=== PATIENT | female | born 1955 | race Caucasian/White ===

== ENCOUNTER 2016-11-02 14:54 | Inpatient (IN) | payer MEDICARE ==
[~2016-11-02] VITALS: Ht 154.9 cm; Wt 83.9 kg
[~2016-11-02 14:54] MED LIST: ACULAR 3 ML3 M1 OP; ALBUTEROL0.09 MG/A2 IH; ALBUTEROL2.5 MG/0.5 INH; AMBIEN10 M1 PO; ANAPROX DS550 MG PO; ASPIRIN325 M2 PO; ASPIRIN81 M1 PO; CHERATUSSIN AC120 ML PO; CIPRO500 MG PO; CLARITIN10 MG PO; CYCLOBENZAPRINE10 MG PO; DUONEB 3 MG/3 ML3 M1 INH; DYAZIDE 25 MG-31 CAP PO; Ecotrin325 MG PO; FLEXERIL10 MG PO; FLEXERIL5 MG PO; HYCODAN/HYDROMET5 ML PO; HYDR25T PO; HYDROCODONE BIT1 T11 PO; KEFLEX500 MG PO; LASIX20 MG PO; LEVAQUIN 500 M500 M1 IV; LEVOFLOXACIN500 MG PO; LIPITOR40 MG PO; LISINOPRIL HCTZ1 TA1 PO; LISINOPRIL/HCTZ1 TA2 PO; LISINOPRIL20 MG PO; LOVASTATIN20 MG PO; MEDROL DOSEPAK4 MG PO; METOPROLOL SR100 MG PO; MOTRIN 400 MG E4 TAB PO; MOTRIN800 MG PO; NORVASC5 MG PO; OYSTER SHELL CA1 TAB PO; PHENERGAN25 M1 PO; PLAVIX75 MG PO; PREDNICOT10 MG PO; PREDNISONE10 MG PO; PREDNISONE20 M1 PO; PREDNISONE20 MG PO; PREVACID30 M1 PO; PRINZIDE 25 MG-1 TAB PO; PROAIR HFA0.09 MG/AC PO; PROAIR HFA8.5 GM PO; QVAR 80MCG/INH7.3 G1 PO; ROBITUSSIN AC 110 ML PO; SINGULAIR10 MG PO; SOLU-MEDROL125 MG IV; SYMBICORT1 AE1 IH; TESSALON PERLE100 M1 PO; TRAMADOL HCL50 MG PO; Tobrex Ophth S2.5 ML OPH; ULTRAM50 MG PO; VIBRAMYCIN100 MG PO; VICODIN 5/500 505 MG PO; VICODIN ES 7501 TA1 PO; VITAMIN D32000 IU PO; VITAMIN D50000 I2 PO; ZESTRIL20 MG PO; ZITHROMAX Z PA250 MG PO; ZITHROMAX250 MG PO; ZOLOFT100 MG PO; ZOLOFT50 MG PO; [UNRECOGNIZED DRUG - OTHER] INH; [UNRECOGNIZED DRUG - REMARK]
[2016-11-02 14:58] VITALS: BP 100/85
[2016-11-02 15:36] LABS: BASO # 0.1 10*3/uL (0.0-0.1); BASO % 1.4 % (0.0-1.0); EOS # 0.7 10*3/uL (0.0-0.4); EOS % 7.2 % (1.0-4.0); HEMATOCRIT 47.3 % (37.0-47.0); HEMOGLOBIN 15.8 g/dl (12.0-16.0); LYMPH # 3.7 10*3/uL (1.3-4.4); LYMPH % 37.4 % (27.0-41.0); MEAN CELL VOLUME 91.5 fl (81.0-99.0); MEAN CORPUSCULAR HGB 30.6 pg (27.0-31.0); MEAN CORPUSCULAR HGB CONC 33.4 g/dl (33.0-37.0); MEAN PLATELET VOLUME 9.4 fl (9.6-12.3); MONO # 0.8 10*3/uL (0.1-1.0); MONO % 7.7 % (3.0-9.0); NEUT # 4.6 10*3/uL (2.3-7.9); NEUT % 45.9 % (47.0-73.0); PLATELET COUNT AUTOMATED 365 10*3/uL (130-400); RED BLOOD COUNT 5.17 10*6/uL (4.10-5.10); RED CELL DISTRI WIDTH 13.3 % (0-14.5); WHITE BLOOD COUNT 9.9 10*3/uL (4.8-10.8)
[2016-11-02 15:53] LABS: ALBUMIN 3.9 gm/dl (3.1-4.5); ALKALINE PHOSPHATASE 179 U/L (45-117); BILIRUBIN, TOTAL 0.8 mg/dl (0.2-1.0); BUN 29 mg/dl (7-24); CARBON DIOXIDE 27 mmol/L (21-32); CHLORIDE 106 mmol/L (98-107); EST GLOM FILT AFRICAN AMERICAN > 60 ml/min; GLUCOSE 97 mg/dL (65-99); POTASSIUM 4.2 mmol/L (3.5-5.1); SGOT/AST 35 IU/L (3-35); SGPT/ALT 69 U/L (12-78); SODIUM 143 mmol/L (136-145); TOTAL PROTEIN 7.8 gm/dL (6.4-8.2); TROPONIN I 0.017 ng/ml (<0.5)
[2016-11-02 16:09] VITALS: BP 138/70
[2016-11-02 18:35] VITALS: BP 115/84
[2016-11-02] MEDS ORDERED: CLARITIN10 MG PO (19:06)
[2016-11-02 20:00] VITALS: BP 143/49
[2016-11-03] VITALS: BP 99/61
[2016-11-03 06:23] LABS: BASO % 0.2 % (0.0-1.0); EOS % 0.1 % (1.0-4.0); HEMATOCRIT 42.8 % (37.0-47.0); HEMOGLOBIN 14.3 g/dl (12.0-16.0); IG # 0.1 10*3/uL (0.0-0.1); LYMPH # 1.3 10*3/uL (1.3-4.4); MEAN CELL VOLUME 91.8 fl (81.0-99.0); MEAN CORPUSCULAR HGB 30.7 pg (27.0-31.0); MEAN CORPUSCULAR HGB CONC 33.4 g/dl (33.0-37.0); MEAN PLATELET VOLUME 9.9 fl (9.6-12.3); MONO # 0.1 10*3/uL (0.1-1.0); MONO % 0.7 % (3.0-9.0); NEUT # 11.7 10*3/uL (2.3-7.9); NEUT % 88.3 % (47.0-73.0); PLATELET COUNT AUTOMATED 355 10*3/uL (130-400); RED BLOOD COUNT 4.66 10*6/uL (4.10-5.10); RED CELL DISTRI WIDTH 13.2 % (0-14.5); WHITE BLOOD COUNT 13.3 10*3/uL (4.8-10.8)
[2016-11-03 06:42] LABS: HEMOGLOBIN A1c 5.4 % (4.8-5.6)
[2016-11-03 06:51] LABS: PROTHROMBIN TIME 10.7 SECONDS (9.0-12.4)
[2016-11-03 07:05] LABS: ALBUMIN 3.5 gm/dl (3.1-4.5); BILIRUBIN, TOTAL 0.4 mg/dl (0.2-1.0); MAGNESIUM 2.1 mg/dL (1.5-2.1); POTASSIUM 3.8 mmol/L (3.5-5.1); TOTAL PROTEIN 7.2 gm/dL (6.4-8.2)
[2016-11-03 08:00] VITALS: BP 118/70
[2016-11-03 11:45] LABS: BILIRUBIN NEGATIVE (NEGATIVE); BLOOD NEGATIVE (NEGATIVE); CLARITY CLEAR (CLEAR); COLOR YELLOW (YELLOW); GLUCOSE NEGATIVE (NEGATIVE); KETONE TRACE (NEGATIVE); LEUKO ESTERASE NEGATIVE (NEGATIVE); NITRITE NEGATIVE (NEGATIVE); PROTEIN NEGATIVE (NEGATIVE); SPECIFIC GRAVITY 1.025 (1.005-1.030); UROBILINOGEN 0.2 E.U./dl (0.2-1.0)
[2016-11-03 12:00] VITALS: BP 102/74
[2016-11-03 16:00] VITALS: BP 108/63
[2016-11-03 20:00] VITALS: BP 115/60
[2016-11-04] VITALS: BP 109/68
[2016-11-04 06:44] LABS: HEMATOCRIT 43.1 % (37.0-47.0); HEMOGLOBIN 13.9 g/dl (12.0-16.0); MEAN CELL VOLUME 93.9 fl (81.0-99.0); MEAN CORPUSCULAR HGB 30.3 pg (27.0-31.0); MEAN CORPUSCULAR HGB CONC 32.3 g/dl (33.0-37.0); MEAN PLATELET VOLUME 9.8 fl (9.6-12.3); PLATELET COUNT AUTOMATED 401 10*3/uL (130-400); RED BLOOD COUNT 4.59 10*6/uL (4.10-5.10); RED CELL DISTRI WIDTH 13.8 % (0-14.5); WHITE BLOOD COUNT 26.5 10*3/uL (4.8-10.8)
[2016-11-04 06:59] LABS: ALBUMIN 3.5 gm/dl (3.1-4.5); PHOSPHOROUS 3.6 mg/dL (2.5-4.9); POTASSIUM 4.3 mmol/L (3.5-5.1)
[2016-11-04 07:26] LABS: LYMPHOCYTE # 2.9 10*3/uL (1.3-4.4); NEUTROPHIL # 23.6 10*3/uL (2.3-7.9); NEUTROPHILS 89 % (47-73); PLATELET SUFFICIENCY NORMAL (NORMAL); TOTAL CELLS COUNTED 100 #CELLS
[2016-11-04 08:00] VITALS: BP 102/72
[2016-11-04 12:00] VITALS: BP 104/59
[2016-11-04 16:00] VITALS: BP 123/78
[2016-11-04 20:00] VITALS: BP 118/70
[2016-11-05] VITALS: BP 126/73
[2016-11-05 06:28] LABS: PHOSPHOROUS 2.6 mg/dL (2.5-4.9); POTASSIUM 4.5 mmol/L (3.5-5.1)
[2016-11-05 06:29] LABS: ALBUMIN 3.2 gm/dl (3.1-4.5)
[2016-11-05 08:00] VITALS: BP 154/88
[2016-11-05] MEDS ORDERED: PREDNISONE10 MG PO ×2 (11:01→11:04)
[2016-11-05] MEDS ORDERED: DOXYCYCLINE100 M3 PO ×2 (11:02→11:04)
== END 2016-11-05 12:03 | disposition home or self-care (01) | DRG 190 ==
LOC: ED 14:54 → 4E 16:15 → EDHOLD 16:15 → 4E 17:29
PROVIDERS: Family Medicine Adult Medicine; Internal Medicine; Internal Medicine Nephrology; Nurse Practitioner Family
DX: J44.1 Chronic obstructive pulmonary disease with (acute) exacerbation (principal); N17.0 Acute kidney failure with tubular necrosis; E44.0 Moderate protein-calorie malnutrition; E66.9 Obesity, unspecified; N18.2 Chronic kidney disease, stage 2 (mild); I12.9 Hypertensive chronic kidney disease with stage 1 through stage 4 chronic kidney disease, or unspecified chronic kidney disease; E78.5 Hyperlipidemia, unspecified; Z68.35 Body mass index [BMI] 35.0-35.9, adult; Z95.5 Presence of coronary angioplasty implant and graft; Z98.51 Tubal ligation status; Z98.49 Cataract extraction status, unspecified eye; Z98.890 Other specified postprocedural states; Z82.49 Family history of ischemic heart disease and other diseases of the circulatory system; Z88.0 Allergy status to penicillin; Z88.8 Allergy status to other drugs, medicaments and biological substances; Z79.82 Long term (current) use of aspirin; Z79.899 Other long term (current) drug therapy; Z95.0 Presence of cardiac pacemaker

== ENCOUNTER 2017-04-25 23:05 | Emergency (ER) | payer MEDICARE ==
[~2017-04-25] VITALS: Ht 157.4 cm; Wt 81.6 kg
[~2017-04-25 23:05] MED LIST changes: +DOXYCYCLINE100 M3 PO
[2017-04-25 23:11] VITALS: BP 168/84
[2017-04-25] MEDS ORDERED: ERYTHROMYCIN OPH1 GM OPH (23:47)
== END 2017-04-26 00:03 | disposition home or self-care (01) ==
LOC: ED 23:05
DX: H00.015 Hordeolum externum left lower eyelid (principal); Z95.5 Presence of coronary angioplasty implant and graft; Z95.0 Presence of cardiac pacemaker; Z88.0 Allergy status to penicillin; Z88.8 Allergy status to other drugs, medicaments and biological substances; Z79.82 Long term (current) use of aspirin; Z79.899 Other long term (current) drug therapy

== ENCOUNTER 2017-05-26 17:37 | Emergency (ER) | payer MEDICARE ==
[~2017-05-26] VITALS: Ht 154.9 cm; Wt 81.6 kg
[~2017-05-26 17:37] MED LIST changes: +ERYTHROMYCIN OPH1 GM OPH
[2017-05-26 17:57] VITALS: BP 174/104
[2017-05-26] MEDS ORDERED: BACTRIM 400-801 EACH PO (19:10)
== END 2017-05-26 19:17 | disposition home or self-care (01) ==
LOC: ED 17:37
DX: L02.31 Cutaneous abscess of buttock (principal); I10 Essential (primary) hypertension; Z95.0 Presence of cardiac pacemaker; Z95.5 Presence of coronary angioplasty implant and graft; Z79.82 Long term (current) use of aspirin; Z88.0 Allergy status to penicillin; Z88.8 Allergy status to other drugs, medicaments and biological substances

== ENCOUNTER 2017-06-15 22:35 | Inpatient (IN) | payer MEDICARE ==
[~2017-06-15] VITALS: Ht 154.9 cm; Wt 83.9 kg
--- NOTE | ~2017-06-15 | CON ---
[place], [place] REPORT OF CONSULTATION [id number] UNIT #: [id number] ROOM: 405 DOCTOR: JAEL MUNGUIA MD BIRTHDATE: [birth year] DOS: 06/16/2017 HISTORY OF PRESENT ILLNESS: The patient is a 62-year-old -[place]ian woman with a history of coronary artery disease. She had coronary artery stenting done in 2003. Around the same time, she had a dual chamber pacemaker implanted, the reason is not clear. She has essential hypertension and hyperlipidemia, but has never had a heart failure. She tells me that she had asthma as well. She has never had a stroke and the rhythm disorder off recent and morbid obesity. She has a tonsillectomy, adenoidectomy, cataract surgery and tubal ligation. She had a cough for about 3 days and had mild shortness of breath, so she came to the Emergency Department. She did not have any chest pain or palpitations. She tells me that she walked about a mile yesterday evening with a couple of friends on a regular basis without undue shortness of breath or any chest pain. She has not had any fever or chills and no swelling of the lower extremities. She has no orthopnea. Dr. Gomez was asked to see her because of slight increased troponin level. Her blood pressure was very high upon arrival and has remained so. HOME MEDICATIONS: Numerous and include metoprolol 100 b.i.d., amlodipine 5 mg daily. She is on lisinopril, dose is not known. Aspirin 81 mg daily, atorvastatin 40 daily, clopidogrel 75 mg daily, vitamin D 50,000 units weekly, loratadine 10 mg daily, DuoNeb inhaler and ProAir HFA inhaler. PHYSICAL EXAMINATION: GENERAL: The patient is alert, oriented and very pleasant. She is morbidly obese. Complexion is fine. She is not in any distress. There is no anemia, thyromegaly or finger clubbing. VITAL SIGNS: CVS pulse is regular at 80 beats per minute, blood pressure in the ER was 190/110 and earlier blood pressure was 210/100. NECK: Normal JVP. No bruit in the neck. HEART: There is no cardiomegaly. No murmurs are present. EXTREMITIES: She has good pedal pulses and no pitting edema. Mild varicosities were seen in the left leg. LUNGS: Of note, she was not tachypneic. Clear to auscultation and percussion. No chest wall tenderness present. ABDOMEN: Large, supple, nontender. No organomegaly. No bruits or pulsatile mass. LABORATORY DATA: An ECG demonstrated normal sinus rhythm at 90 beats per minute and an old inferior wall RI. There is minimal criteria for LVH and there is no significant ST-segment depression in lateral leads. Troponin I level was 0.080 and 0.076. IMPRESSION AND PLAN: 1. This patient with known coronary artery disease, has troponin I level that reaches above upper normal range and I think this is most likely due to uncontrolled hypertension. She has no symptoms at all, so I do not think any [place], [place] REPORT OF CONSULTATION NAME: MIKEY AKERS UNIT #: [id number] ROOM: 405 DOCTOR: JAEL MUNGUIA MD BIRTHDATE: [birth year] further cardiac workup is necessary. 2. Hypertension. This needs to be controlled diligently. She did not take her medications last night before she came to the hospital and lisinopril is being added at a dose of 20 mg b.i.d. I thank you on behalf of Dr. Gomez for this consult. JAEL MUNGUIA MD CM:CONSTR:REPORT OF CONSULTATION 0925 06/18/17 3089 interface
[~2017-06-15 22:35] MED LIST changes: +BACTRIM 400-801 EACH PO
[2017-06-15 22:44] VITALS: BP 189/110
[2017-06-15 23:14] LABS: BASO # 0.1 10*3/uL (0.0-0.1); EOS # 0.4 10*3/uL (0.0-0.4); EOS % 3.9 % (1.0-4.0); HEMATOCRIT 42.4 % (37.0-47.0); HEMOGLOBIN 14.4 g/dl (12.0-16.0); LYMPH # 4.1 10*3/uL (1.3-4.4); LYMPH % 40.1 % (27.0-41.0); MEAN CELL VOLUME 89.6 fl (81.0-99.0); MEAN CORPUSCULAR HGB 30.4 pg (27.0-31.0); MEAN PLATELET VOLUME 9.5 fl (9.6-12.3); MONO # 0.8 10*3/uL (0.1-1.0); NEUT # 4.8 10*3/uL (2.3-7.9); NEUT % 46.7 % (47.0-73.0); PLATELET COUNT AUTOMATED 280 10*3/uL (130-400); RED BLOOD COUNT 4.73 10*6/uL (4.10-5.10); RED CELL DISTRI WIDTH 13.2 % (0-14.5); WHITE BLOOD COUNT 10.3 10*3/uL (4.8-10.8)
[2017-06-15 23:30] LABS: ALBUMIN 3.5 gm/dl (3.1-4.5); CREATININE 1.15 mg/dL (0.55-1.02); MAGNESIUM 2.1 mg/dL (1.5-2.1); POTASSIUM 3.4 mmol/L (3.5-5.1); TOTAL PROTEIN 7.1 gm/dL (6.4-8.2)
[2017-06-15 23:36] LABS: TROPONIN I 0.08 ng/ml (<0.045)
[2017-06-15 23:48] VITALS: BP 164/98
--- NOTE | 2017-06-16 02:38 | NUR ---
DR. MCNEILL NOTIFIED THAT CARDINAL RECOMENDS LEVAQUIN TO BE GIVEN Q48H INSTEAD OF DAILY DR. MCNEILL STATED THIS WAS OK TO CHANGE.
--- NOTE | 2017-06-16 02:46 | NUR ---
DR. MCNEILL CONTACTED REGARDING PT'S NEW TROPONIN RESULT OF 0.076, NO NEW ORDERS RECIEVED.
[2017-06-16 05:52] LABS: BASO % 0.4 % (0.0-1.0); EOS % 0.1 % (1.0-4.0); HEMATOCRIT 41.8 % (37.0-47.0); HEMOGLOBIN 13.9 g/dl (12.0-16.0); LYMPH # 1.1 10*3/uL (1.3-4.4); LYMPH % 14.3 % (27.0-41.0); MEAN CELL VOLUME 91.5 fl (81.0-99.0); MEAN CORPUSCULAR HGB 30.4 pg (27.0-31.0); MEAN CORPUSCULAR HGB CONC 33.3 g/dl (33.0-37.0); MEAN PLATELET VOLUME 9.5 fl (9.6-12.3); MONO % 0.5 % (3.0-9.0); NEUT # 6.3 10*3/uL (2.3-7.9); NEUT % 83.6 % (47.0-73.0); PLATELET COUNT AUTOMATED 280 10*3/uL (130-400); RED BLOOD COUNT 4.57 10*6/uL (4.10-5.10); RED CELL DISTRI WIDTH 13.3 % (0-14.5); WHITE BLOOD COUNT 7.5 10*3/uL (4.8-10.8)
[2017-06-16 05:58] LABS: ALBUMIN 3.3 gm/dl (3.1-4.5); ALKALINE PHOSPHATASE 133 U/L (45-117); BUN 17 mg/dl (7-24); CHLORIDE 109 mmol/L (98-107); CHOLESTEROL 164 mg/dL (<200); CREATININE 1.02 mg/dL (0.55-1.02); HDL CHOLESTEROL 51 mg/dl (40-60); LDL CHOLESTEROL 101 mg/dL (9-159); MAGNESIUM 1.9 mg/dL (1.5-2.1); PHOSPHOROUS 2.4 mg/dL (2.5-4.9); POTASSIUM 3.6 mmol/L (3.5-5.1); SGOT/AST 25 IU/L (3-35); SGPT/ALT 42 U/L (12-78); SODIUM 142 mmol/L (136-145); TOTAL PROTEIN 6.9 gm/dL (6.4-8.2); TRIGLYCERIDES 60 mg/dl (<150); VLDL CHOLESTEROL 12 mg/dL (6-40)
[2017-06-16 05:59] LABS: FREE T4 1.09 ng/dl (0.76-1.46)
[2017-06-16 06:00] LABS: TROPONIN I 0.073 ng/ml (<0.045)
[2017-06-16 06:12] LABS: THYROID STIM HORMONE (HS) 0.486 uIU/ml (0.358-4.75)
--- NOTE | 2017-06-16 06:13 | NUR ---
DR. MUNGUIA CONSULTED THIS MORNING, STATED HE WOULD BE IN TO SEE PT.
[2017-06-16 06:24] LABS: ACT PARTIAL THROMBO TIME 23.4 SECONDS (20.8-31.5)
[2017-06-16 06:41] LABS: VITAMIN D, 25-HYDROXY 42.6 ng/mL (30-100)
--- NOTE | 2017-06-16 07:30 | NUR ---
ASSUMED CARE OF PT AT THIS TIME, PT SITTING ON BEDSIDE, ALERT AND ORIENTED
[2017-06-16 08:00] VITALS: BP 210/98
[2017-06-16 09:00] VITALS: BP 198/96
[2017-06-16] MEDS ORDERED: LISINOPRIL20 MG PO (09:58)
[2017-06-16 10:32] LABS: BILIRUBIN NEGATIVE (NEGATIVE); BLOOD NEGATIVE (NEGATIVE); CLARITY SL CLOUDY (CLEAR); COLOR YELLOW (YELLOW); GLUCOSE TRACE (NEGATIVE); KETONE NEGATIVE (NEGATIVE); LEUKO ESTERASE NEGATIVE (NEGATIVE); NITRITE NEGATIVE (NEGATIVE); PH 6.5 (5.0-9.0); SPECIFIC GRAVITY 1.015 (1.005-1.030)
[2017-06-16 10:43] LABS: BACTERIA TRACE
[2017-06-16 12:00] VITALS: BP 163/96
[2017-06-16 16:00] VITALS: BP 159/106
[2017-06-16 20:00] VITALS: BP 176/100
[2017-06-17] VITALS: BP 171/95
--- NOTE | 2017-06-17 04:21 | NUR ---
PATIENT RESTED WELL THROUGHOUT SHIFT. FAMILY VISITED ALL AFTERNOON UNTIL AROUND MIDNIGHT. NO SIGNS OR SYMPTOMS OF DISTRESS NOTED. DENIES COMPLAINTS OF PAIN OR DISCOMFORT. WILL CONTINUE TO MONITOR. CALL LIGHT IN REACH.
[2017-06-17 05:59] LABS: BASO % 0.2 % (0.0-1.0); HEMATOCRIT 41.4 % (37.0-47.0); LYMPH # 2.5 10*3/uL (1.3-4.4); LYMPH % 15.2 % (27.0-41.0); MEAN CORPUSCULAR HGB 30.8 pg (27.0-31.0); MEAN CORPUSCULAR HGB CONC 33.8 g/dl (33.0-37.0); MEAN PLATELET VOLUME 9.7 fl (9.6-12.3); MONO # 0.5 10*3/uL (0.1-1.0); MONO % 2.8 % (3.0-9.0); NEUT # 13.6 10*3/uL (2.3-7.9); NEUT % 81.3 % (47.0-73.0); PLATELET COUNT AUTOMATED 306 10*3/uL (130-400); RED BLOOD COUNT 4.55 10*6/uL (4.10-5.10); RED CELL DISTRI WIDTH 13.6 % (0-14.5); WHITE BLOOD COUNT 16.7 10*3/uL (4.8-10.8)
[2017-06-17 06:20] LABS: BUN 17 mg/dl (7-24); CHLORIDE 111 mmol/L (98-107); CREATININE 0.99 mg/dL (0.55-1.02); MAGNESIUM 2.2 mg/dL (1.5-2.1); POTASSIUM 3.8 mmol/L (3.5-5.1); SODIUM 142 mmol/L (136-145)
[2017-06-17 08:00] VITALS: BP 140/95
[2017-06-17 12:00] VITALS: BP 150/93
[2017-06-17 16:00] VITALS: BP 149/94
[2017-06-17 20:00] VITALS: BP 136/96
--- NOTE | 2017-06-17 20:00 | NUR ---
ASSUMED CARE OF PATIENT. ASSESSMENT COMPLETE. SITTING UP ON SIDE OF BED. NO VOICED COMPLAINTS. CALL LIGHT IN REACH. WILL CONTINUE TO MONITOR.
--- NOTE | 2017-06-17 22:00 | NUR ---
DAILY MED REC UP COMPLETED PER PATIENT
[2017-06-18] VITALS: BP 147/87
--- NOTE | 2017-06-18 02:00 | NUR ---
SLEEPING. RESP EASY AND NONLABORED ON ROOM AIR. NO DISTRESS NOTED. CM INTACT. CALL LIGHT IN REACH. WILL CONTINUE TO MONITOR.
[2017-06-18 06:15] LABS: BASO % 0.2 % (0.0-1.0); HEMATOCRIT 42.6 % (37.0-47.0); HEMOGLOBIN 14.1 g/dl (12.0-16.0); LYMPH # 1.9 10*3/uL (1.3-4.4); LYMPH % 10.6 % (27.0-41.0); MEAN CELL VOLUME 91.8 fl (81.0-99.0); MEAN CORPUSCULAR HGB 30.4 pg (27.0-31.0); MEAN CORPUSCULAR HGB CONC 33.1 g/dl (33.0-37.0); MEAN PLATELET VOLUME 9.9 fl (9.6-12.3); MONO # 0.5 10*3/uL (0.1-1.0); MONO % 2.7 % (3.0-9.0); NEUT # 15.5 10*3/uL (2.3-7.9); NEUT % 85.2 % (47.0-73.0); PLATELET COUNT AUTOMATED 338 10*3/uL (130-400); RED BLOOD COUNT 4.64 10*6/uL (4.10-5.10); RED CELL DISTRI WIDTH 13.8 % (0-14.5); WHITE BLOOD COUNT 18.2 10*3/uL (4.8-10.8)
[2017-06-18 08:00] VITALS: BP 151/87
[2017-06-18 12:00] VITALS: BP 154/94
--- NOTE | 2017-06-18 12:44 | NUR ---
PT LEFT AGAINST MEDICAL ADVICE. IV DISCONTINUED. MASTER AUTOMOTIVE TECHNICIAN OFF.
== END 2017-06-18 12:44 | disposition left against medical advice (07) | DRG 871 ==
LOC: ED 22:35 → EDHOLD 23:52 → 4E 23:59
PROVIDERS: Hospitalist; Internal Medicine; Student in an Organized Health Care Education/Training Program; ADMIT Emergency Medicine
DX: A41.9 Sepsis, unspecified organism (principal); J18.9 Pneumonia, unspecified organism; E44.0 Moderate protein-calorie malnutrition; E87.8 Other disorders of electrolyte and fluid balance, not elsewhere classified; J44.0 Chronic obstructive pulmonary disease with (acute) lower respiratory infection; K76.0 Fatty (change of) liver, not elsewhere classified; I16.1 Hypertensive emergency; E83.41 Hypermagnesemia; R65.20 Severe sepsis without septic shock; Z77.22 Contact with and (suspected) exposure to environmental tobacco smoke (acute) (chronic); E78.5 Hyperlipidemia, unspecified; I25.119 Atherosclerotic heart disease of native coronary artery with unspecified angina pectoris; I12.9 Hypertensive chronic kidney disease with stage 1 through stage 4 chronic kidney disease, or unspecified chronic kidney disease; N18.2 Chronic kidney disease, stage 2 (mild); E66.9 Obesity, unspecified; E83.39 Other disorders of phosphorus metabolism; I77.810 Thoracic aortic ectasia; K80.20 Calculus of gallbladder without cholecystitis without obstruction; Z53.21 Procedure and treatment not carried out due to patient leaving prior to being seen by health care provider; Z95.818 Presence of other cardiac implants and grafts; Z68.34 Body mass index [BMI] 34.0-34.9, adult; Z88.0 Allergy status to penicillin; Z88.6 Allergy status to analgesic agent; I25.2 Old myocardial infarction; Z98.49 Cataract extraction status, unspecified eye; Z95.0 Presence of cardiac pacemaker; Z98.51 Tubal ligation status; Z82.49 Family history of ischemic heart disease and other diseases of the circulatory system; Z83.3 Family history of diabetes mellitus; Z79.82 Long term (current) use of aspirin; Z79.899 Other long term (current) drug therapy

== ENCOUNTER → 2017-06-27 | Outpatient (CLI) | payer MEDICARE ==
[2017-06-27 11:01] LABS: BASO # 0.1 10*3/uL (0.0-0.1); BASO % 0.8 % (0.0-1.0); EOS # 0.3 10*3/uL (0.0-0.4); EOS % 2.5 % (1.0-4.0); HEMATOCRIT 46.6 % (37.0-47.0); HEMOGLOBIN 15.3 g/dl (12.0-16.0); LYMPH # 4.4 10*3/uL (1.3-4.4); LYMPH % 36.7 % (27.0-41.0); MEAN CELL VOLUME 91.4 fl (81.0-99.0); MEAN CORPUSCULAR HGB CONC 32.8 g/dl (33.0-37.0); MEAN PLATELET VOLUME 9.2 fl (9.6-12.3); MONO # 1.1 10*3/uL (0.1-1.0); MONO % 9.1 % (3.0-9.0); NEUT # 5.9 10*3/uL (2.3-7.9); NEUT % 49.1 % (47.0-73.0); PLATELET COUNT AUTOMATED 297 10*3/uL (130-400); RED CELL DISTRI WIDTH 13.6 % (0-14.5); WHITE BLOOD COUNT 11.9 10*3/uL (4.8-10.8)
[2017-06-27 11:16] LABS: ALBUMIN 3.5 gm/dl (3.1-4.5); ALKALINE PHOSPHATASE 127 U/L (45-117); BUN 20 mg/dl (7-24); CHLORIDE 105 mmol/L (98-107); CHOLESTEROL 210 mg/dL (<200); CREATININE 0.97 mg/dL (0.55-1.02); HDL CHOLESTEROL 62 mg/dl (40-60); LDL CHOLESTEROL 112 mg/dL (9-159); POTASSIUM 3.8 mmol/L (3.5-5.1); SGOT/AST 15 IU/L (3-35); SGPT/ALT 34 U/L (12-78); SODIUM 142 mmol/L (136-145); TOTAL PROTEIN 7.2 gm/dL (6.4-8.2); TRIGLYCERIDES 181 mg/dl (<150); VLDL CHOLESTEROL 36 mg/dL (6-40)
[2017-06-27 11:47] LABS: VITAMIN D, 25-HYDROXY 30.5 ng/mL (30-100)
== END | disposition home or self-care (01) ==
LOC: LAB 08:16 → RESCLI 08:16
PROVIDERS: Internal Medicine
DX: I25.10 Atherosclerotic heart disease of native coronary artery without angina pectoris (principal); E78.5 Hyperlipidemia, unspecified; I10 Essential (primary) hypertension; F32.9 Major depressive disorder, single episode, unspecified; Z79.899 Other long term (current) drug therapy; E55.9 Vitamin D deficiency, unspecified

== ENCOUNTER → 2017-07-09 | Outpatient (CLI) | payer MEDICARE | END | disposition home or self-care (01) | LOC: RESCLI 07:50 | DX: I25.10 Atherosclerotic heart disease of native coronary artery without angina pectoris (principal); I10 Essential (primary) hypertension; J45.30 Mild persistent asthma, uncomplicated; E78.5 Hyperlipidemia, unspecified; M54.5 Low back pain; G89.29 Other chronic pain; G47.01 Insomnia due to medical condition; F32.9 Major depressive disorder, single episode, unspecified; J30.2 Other seasonal allergic rhinitis; I71.2 Thoracic aortic aneurysm, without rupture; E66.01 Morbid (severe) obesity due to excess calories; J44.9 Chronic obstructive pulmonary disease, unspecified ==

== ENCOUNTER → 2017-08-21 | Outpatient (CLI) | payer MEDICARE | END | disposition home or self-care (01) | LOC: RESCLI 01:31 | DX: I10 Essential (primary) hypertension (principal); A41.9 Sepsis, unspecified organism; J18.9 Pneumonia, unspecified organism; E78.5 Hyperlipidemia, unspecified; M54.5 Low back pain; F32.9 Major depressive disorder, single episode, unspecified; K57.30 Diverticulosis of large intestine without perforation or abscess without bleeding; J45.20 Mild intermittent asthma, uncomplicated; J06.9 Acute upper respiratory infection, unspecified; B97.89 Other viral agents as the cause of diseases classified elsewhere; Z95.0 Presence of cardiac pacemaker; Z88.0 Allergy status to penicillin ==

== ENCOUNTER 2017-09-08 14:06 | Emergency (ER) | payer MEDICARE ==
[~2017-09-08] VITALS: Ht 154.9 cm; Wt 89.4 kg
[2017-09-08 14:10] VITALS: BP 170/90
[2017-09-08] MEDS ORDERED: PREDNISONE10 MG PO (15:35)
[2017-09-08] MEDS ORDERED: DOXYCYCLINE100 M3 PO (15:35)
== END 2017-09-08 15:46 | disposition home or self-care (01) ==
LOC: ED 14:06
DX: J40 Bronchitis, not specified as acute or chronic (principal); J01.00 Acute maxillary sinusitis, unspecified; E78.00 Pure hypercholesterolemia, unspecified; I25.10 Atherosclerotic heart disease of native coronary artery without angina pectoris; J44.9 Chronic obstructive pulmonary disease, unspecified; I10 Essential (primary) hypertension; I25.2 Old myocardial infarction; E66.9 Obesity, unspecified; F17.200 Nicotine dependence, unspecified, uncomplicated; Z68.39 Body mass index [BMI] 39.0-39.9, adult; Z95.5 Presence of coronary angioplasty implant and graft; Z90.89 Acquired absence of other organs; Z95.0 Presence of cardiac pacemaker; Z79.82 Long term (current) use of aspirin; Z79.899 Other long term (current) drug therapy; Z88.0 Allergy status to penicillin; Z88.8 Allergy status to other drugs, medicaments and biological substances

== ENCOUNTER → 2017-09-10 | Outpatient (CLI) | payer MEDICARE | END | disposition home or self-care (01) | LOC: CP 09:47 | DX: J45.909 Unspecified asthma, uncomplicated (principal) ==

== ENCOUNTER 2017-09-18 03:55 | Inpatient (IN) | payer MEDICARE ==
[~2017-09-18] VITALS: Ht 154.9 cm; Wt 87.6 kg
--- NOTE | ~2017-09-18 | CON ---
[place], [place] REPORT OF CONSULTATION NAME: MIKEY AKERS [facility] #: [id number] UNIT #: [id number] ROOM: 412 DOCTOR: MOISES SIMMONS MDDALTON BIRTHDATE: [birth year] DOS: 09/19/2017 PULMONARY CONSULTATION EVALUATION REASON FOR CONSULTATION: Assess the patient with exacerbation of chronic obstructive pulmonary disease. HISTORY OF PRESENT ILLNESS: A 62-year-old white female patient who has been admitted under the hospitalist service for the patient on 09/18/2017. The patient reported having increased respiratory symptom which has been ongoing since close to . The patient started with cough with chest congestion with wheezing and shortness of breath, which has been noted with gradual worsening. She came into the hospital Emergency Room and hospitalized for the medical management of diagnosis as COPD exacerbation. The patient stated that she has reported reduction in respiratory symptoms in last 24 hours with improvement in the cough, wheezing and shortness of breath has been reported significantly. Coughing has been improved, noted minimal. The wheezing has also been decreased significantly. She denies any symptoms of chest pain or hemoptysis. REVIEW OF SYSTEMS: CONSTITUTIONAL: Fatigue and tiredness reported without any symptoms of fever or chills. EYES: Denies any burning, redness, or tenderness. EARS, NOSE, THROAT SYMPTOMS: Denies sore throat, hoarseness, otalgia, postnasal drainage or epistaxis. CARDIOVASCULAR: Denies angina pain, edema or pain of the lower extremities. GASTROINTESTINAL: Denies symptoms of dysphagia, nausea, vomiting, diarrhea, abdominal pain, hematemesis, melena for this patient, hematochezia, or abnormal weight loss history. GENITOURINARY: Denies dysuria, suprapubic pain, or hematuria. SKIN: Denies lesions or rashes. MUSCULOSKELETAL: No acute joint pain, redness, or tenderness. CENTRAL NERVOUS SYSTEM: No dizziness, headache, diplopia, or syncopal episodes. Remaining systems were reviewed with the patient, they were noted all negative. PAST MEDICAL HISTORY: 1. She was noted with "diagnosis of COPD" as per patient. 2. History of coronary artery disease. 3. History of tenosynovitis. 4. Hyperlipidemia. 5. Essential hypertension. 6. Chronic moderate obesity. PAST SURGICAL HISTORY: 1. Reported as history of cardiac catheterization and coronary stent insertion in 2003. 2. T and A. 3. Bilateral cataract extraction and lens implantation. [place], [place] REPORT OF CONSULTATION NAME: MIKEY AKERS [facility] #: [id number] UNIT #: [id number] ROOM: [facility] DOCTOR: DALTON CORONA MD BIRTHDATE: [birth year] 4. Pacemaker insertion. 5. Tubal ligation. In the past, she also had history of bronchial asthma, severity unknown. SOCIAL HISTORY: She stated that she is , has 2 children, nonsmoker lifetime. Denies history of alcohol use, illicit drug use or any occupation related exposure for any dust or chemicals at work or home. FAMILY HISTORY: The patient's father at age of 7070 years old from unknown medical complications. Mother at the age per the patient about 50 years old with complication related to the congestive heart failure. HOME MEDICATIONS: Reported use of ProAir HFA inhaler, Norvasc, aspirin, Lipitor, calcium carbonate, Plavix, Flexeril, ibuprofen, DuoNeb, Prevacid, lisinopril, losartan, metoprolol, and Ambien. DRUG ALLERGIES: REPORTED ALLERGY. 1. NITROGLYCERIN. 2. PENICILLINS. PHYSICAL EXAMINATION: GENERAL: This is a 62-year-old white female noted comfortable sitting on the bed for this patient without any acute respiratory distress at this time. VITAL SIGNS: The height for the patient recorded as 5 feet 1 inch, weight of 193 pounds, BMI 36.4. Vital signs are normal temperature, respiratory rate for the patient was recorded between 18-20, heart rate of 74-104, blood pressure 132/80 this morning. Pulse oxygen saturation of the patient on room air was 98% saturation. HEENT: Mild obesity. Head is atraumatic. Eye nonicterus. NECK: Supple. Moderate reduction of the posterior pharyngeal space, the patient with high tongue base. The patient crowding soft tissue structures. CARDIOVASCULAR: S1, S2 audible. No added sounds. LUNGS: Noted with mild decreased breath sounds without any wheezing or crackles. ABDOMEN: Soft. Mild obesity. Bowel sounds present without any tenderness. CENTRAL NERVOUS SYSTEM: Cranial nerves 2-12 intact. No focal deficit. MUSCULOSKELETAL: No deformities. SKIN: No lesions or rashes. LABORATORY DATA: The patient has a pulmonary function test done as an outpatient on 09/10/2017 for the patient shows evidence of mild reversible obstructive lung disease. The patient was considered possibility of bronchial asthma. The lactic acid of the patient on 09/18 was normal. The CMP of the patient on 09/18 on admission, normal. The CBC: WBC count 14.5, remaining CBC was noted normal on admission on 09/18. Eosinophils, however, reported differential as 5%. The CBC this morning: WBC count 11.4, remaining CBC normal. PT/PTT normal this morning. CMP this morning, BUN 24, creatinine 1.13, glucose 187. The chest x-ray, 2-view, which was done for the patient 09/18/2017, the patient was noted normal study. [place], [place] REPORT OF CONSULTATION NAME: MIKEY AKERS UNIT #: [id number] ROOM: [facility] DOCTOR: DALTON CORONA MD BIRTHDATE: [birth year] IMPRESSION: 1. The patient will be currently admitted to the hospital, most likely has a diagnosis based on the history of the patient's pulmonary function testing as bronchial asthma with acute exacerbation and bronchitis. Possibility of viral bronchitis of the patient to be considered versus bacteria for this patient. 2. History of moderate obesity as well. 3. History of coronary artery disease. 4. Steroid-induced hyperglycemia was also noted. PLAN OF MANAGEMENT: From the pulmonary standpoint, the patient could be discharged home on tapering dose of prednisone, oral antibiotic such as Zithromax or doxycycline for the next few days, and use of the bronchodilators. Outpatient assessment. The patient agreed to be assessed with the patient as an outpatient for further assessment of her pulmonary status and maximize the medical management accordingly. All other supportive therapy, plan of management. The information has been conveyed to the nurses to be passed on to the primary care physician. DALTON DE LEON MD CM:CONSTR:REPORT OF CONSULTATION 1221 09/19/17 1437 interface
--- NOTE | ~2017-09-18 | PR ---
[place], [place] PROGRESS NOTE [id number] UNIT #: [id number] ROOM: 412 DOCTOR: MOISES SIMMONS MD,DALTON BIRTHDATE: [birth year] DOS: 09/20/2017 PULMONARY FOLLOWUP SUBJECTIVE: The patient has been noted comfortable at this time without any distress, has not been reported any symptoms of chest pain. The patient's coughing and shortness of breath all improved, currently noted with minimal symptoms. OBJECTIVE: VITAL SIGNS: Normal temperature, respiratory rate 20, heart rate 79, blood pressure 108/78. Pulse oxygen saturation on room air 96% saturation. HEENT: Shows no acute change. NECK: Supple. CARDIOVASCULAR: S1, S2 audible. LUNGS: No wheeze or crackles. ABDOMEN: Soft, nontender. EXTREMITIES: Without any edema. LABORATORY DATA: Chest x-ray of the patient yesterday repeated and noted normal, PA lateral view in the afternoon, which was reviewed. IMPRESSION: Stable respiratory status, resolving acute exacerbation of bronchial asthma. PLAN OF MANAGEMENT: No changes from the pulmonary standpoint. Continue the patient's current therapy, plan of management. Discharge planning according to the primary care physician. All other supportive plan of management care. DALTON DE LEON MD CM:PNTRANS [id number] DALTON SIMMONS MD 09/20/17 1512 interface
[2017-09-18 15:32] VITALS: BP 138/84
--- NOTE | 2017-09-18 15:50 | NUR ---
A 62, admitted to , under the services of CHARLES Villareal DO with a diagnosis of COPD EXACERBATION. Chief complaint is SHORTNES OF BREATH. Patient arrived via wheel chair from OP/ADMIT. Monitor applied. Initial assessment completed. Vital signs taken and recorded. CHARLES VILLAREAL DO notified of admission to the unit. Orders received. See assessment for past medical history, medications and allergies. Patient and/or family oriented to unit. [facility] visitation policy reviewed. Clothing/patient valuable form completed. JAGRUTI ARNOLD R
[2017-09-18] MEDS ORDERED: AMBIEN5 MG PO (16:07)
[2017-09-18] MEDS ORDERED: IBU800 MG PO (16:09)
[2017-09-18] MEDS ORDERED: CYCLOBENZAPRINE10 MG PO (16:10)
[2017-09-18] MEDS ORDERED: PREVACID30 M2 PO (16:11)
--- NOTE | 2017-09-18 16:20 | NUR ---
DR. DE LEON NOTIFIED OF CONSULT, NO NEW ORDERS.
[2017-09-18 16:39] LABS: HEMATOCRIT 44.3 % (37.0-47.0); HEMOGLOBIN 14.5 g/dl (12.0-16.0); MEAN CELL VOLUME 93.9 fl (81.0-99.0); MEAN CORPUSCULAR HGB 30.7 pg (27.0-31.0); MEAN CORPUSCULAR HGB CONC 32.7 g/dl (33.0-37.0); MEAN PLATELET VOLUME 9.3 fl (9.6-12.3); PLATELET COUNT AUTOMATED 343 10*3/uL (130-400); RED BLOOD COUNT 4.72 10*6/uL (4.10-5.10); RED CELL DISTRI WIDTH 13.8 % (0-14.5); WHITE BLOOD COUNT 14.5 10*3/uL (4.8-10.8)
--- NOTE | 2017-09-18 16:39 | NUR ---
NEW IV STARTED IN PT. LEFT HAND, PT. TOLERATED WELL.
[2017-09-18 16:56] LABS: ALBUMIN 3.4 gm/dl (3.1-4.5); ALKALINE PHOSPHATASE 150 U/L (45-117); BUN 24 mg/dl (7-24); CHLORIDE 107 mmol/L (98-107); CREATININE 0.91 mg/dL (0.55-1.02); POTASSIUM 4.1 mmol/L (3.5-5.1); SGOT/AST 14 IU/L (3-35); SGPT/ALT 41 U/L (12-78); SODIUM 141 mmol/L (136-145); TOTAL PROTEIN 7.3 gm/dL (6.4-8.2)
[2017-09-18 16:57] LABS: TROPONIN I < 0.015 ng/ml (<0.045)
[2017-09-18 17:03] LABS: TOTAL CELLS COUNTED 100 #CELLS
[2017-09-18 17:04] LABS: PLATELET SUFFICIENCY NORMAL (NORMAL)
[2017-09-18 20:00] VITALS: BP 103/86
--- NOTE | 2017-09-18 20:17 | NUR ---
PATIENT RESTING IN BED PLAYING ON TABLET. DENIES SHORTNESS OF BREATH. COUGH OBSERVED. NO NEEDS AT THIS TIME. BED IN LOWEST POSITION, CALL LIGHT IN REACH
[2017-09-18 22:12] LABS: BILIRUBIN NEGATIVE (NEGATIVE); BLOOD NEGATIVE (NEGATIVE); CLARITY CLEAR (CLEAR); COLOR YELLOW (YELLOW); GLUCOSE NEGATIVE (NEGATIVE); KETONE NEGATIVE (NEGATIVE); LEUKO ESTERASE NEGATIVE (NEGATIVE); NITRITE NEGATIVE (NEGATIVE); SPECIFIC GRAVITY 1.025 (1.005-1.030); UROBILINOGEN 0.2 E.U./dl (0.2-1.0)
[2017-09-18 22:46] LABS: RBC 0-2 rbc/hpf (0-2); WBC 0-2 wbc/hpf (0-5)
--- NOTE | 2017-09-18 23:48 | NUR ---
24 HR chart check completed.
[2017-09-19] VITALS: BP 145/88
--- NOTE | 2017-09-19 03:15 | NUR ---
PATIENT RESTING IN BED WITH NO S/S OF DISTRESS. RESPS EASY AND REUGLAR. BED IN LOWEST POSITOIN, CALL LIGHT IN REACH
[2017-09-19 06:15] LABS: BASO % 0.4 % (0.0-1.0); EOS % 0.1 % (1.0-4.0); HEMATOCRIT 43.2 % (37.0-47.0); HEMOGLOBIN 14.4 g/dl (12.0-16.0); LYMPH # 1.1 10*3/uL (1.3-4.4); LYMPH % 9.6 % (27.0-41.0); MEAN CELL VOLUME 93.1 fl (81.0-99.0); MEAN CORPUSCULAR HGB CONC 33.3 g/dl (33.0-37.0); MEAN PLATELET VOLUME 9.6 fl (9.6-12.3); MONO # 0.1 10*3/uL (0.1-1.0); MONO % 0.7 % (3.0-9.0); NEUT # 9.9 10*3/uL (2.3-7.9); PLATELET COUNT AUTOMATED 307 10*3/uL (130-400); RED BLOOD COUNT 4.64 10*6/uL (4.10-5.10); RED CELL DISTRI WIDTH 13.5 % (0-14.5); WHITE BLOOD COUNT 11.4 10*3/uL (4.8-10.8)
[2017-09-19 06:37] LABS: ALBUMIN 3.3 gm/dl (3.1-4.5); POTASSIUM 4.1 mmol/L (3.5-5.1)
[2017-09-19 06:45] LABS: ACT PARTIAL THROMBO TIME 21.9 SECONDS (20.8-31.5); CREATININE 1.13 mg/dL (0.55-1.02); FREE T4 1.07 ng/dl (0.76-1.46); PHOSPHOROUS 2.9 mg/dL (2.5-4.9); THYROID STIM HORMONE (HS) 0.302 uIU/ml (0.358-4.75); TOTAL PROTEIN 6.9 gm/dL (6.4-8.2)
--- NOTE | 2017-09-19 07:30 | NUR ---
PT TAKEN OFF NOCTURNAL PULSE OX AT 730. PT WAS RESTING COMFORTABLY ON ROOM AIR. SP02 AT 97%. BOX TAKEN DOWNSTAIRS TO DOWNLOAD.
[2017-09-19 08:00] VITALS: BP 132/80
--- NOTE | 2017-09-19 08:20 | NUR ---
PT SITTING UP IN BED. RESP-EASY AND REGULAR. NO C/O AT THIS TIME. CALL LIGHT IN REACH. SEE SHIFT ASSESSMENT.
--- NOTE | 2017-09-19 08:30 | NUR ---
Knifer Up in to talk to patient. Patient states lives at HOME with HER BOYFRIEND AND SON. There are 15 steps in the home. Physician: [facility]acy: [facility] Home health services: NONE Patient's level of ADLs: MINIMAL ASSIST Patient has working utilities: YES DME: NONE Follow-up physician's appointment after d/c: WILL BE MADE PRIOR TO DC Does patient want to access PORTAL?: Discharge plan HOME. GILES RODRIGUEZ
[2017-09-19 08:42] LABS: VITAMIN D, 25-HYDROXY 30.1 ng/mL (30-100)
--- NOTE | 2017-09-19 10:00 | NUR ---
PT SITTING UP AT BEDSIDE. TOLERATED ROUTINE MED WITH NO PROBLEM. NO C/O AT THIS TIME. CALL LIGHT IN REACH.
[2017-09-19 12:00] VITALS: BP 146/88
--- NOTE | 2017-09-19 12:30 | NUR ---
SITTING UP AT SIDE OF BED. RESP-EASY AND REGULAR. NO C/O AT THIS TIME. CALL LIGHT IN REACH.
[2017-09-19 16:00] VITALS: BP 121/76
--- NOTE | 2017-09-19 16:00 | NUR ---
SITTING UP AT SIDE OF BED. RESP-EASY AND REGULAR. NO C/O AT THIS TIME. CALL LIGHT IN REACH.
--- NOTE | 2017-09-19 18:00 | NUR ---
SITTING UP IN BED. NO C/O AT THIS TIME. CALL LIGHT IN REACH.
--- NOTE | 2017-09-19 19:40 | NUR ---
PT. AWAKE, ALERT, AND ORIENTED X 3. PT. IN BED AT THIS TIME. PT. CURRENTLY DENIES SOB, CP AND PAIN. CALL LIGHT IN REACH, BED IN LOWEST POSITION, WHEELS LOCKED. SEE SHIFT ASSESSMENT.
[2017-09-19 20:00] VITALS: BP 113/74
[2017-09-20] VITALS: BP 138/95
--- NOTE | 2017-09-20 07:30 | NUR ---
ASSUMED CARE OF PT AT THIS TIME, RESPS EASY AND NONLABORED WITH NO S/S OF DISTRESS CALL LIGHT WITH IN REACH
[2017-09-20 08:00] VITALS: BP 128/78
--- NOTE | 2017-09-20 08:55 | NUR ---
pt assessed for home o2...spo2 98% on RA at rest..pt ambulated on RA for 6 min..spo2 92-97% pt tolerated walk RN notified that pt does not qualify for home o2
[2017-09-20 12:00] VITALS: BP 134/77
[2017-09-20] MEDS ORDERED: PREDNISONE10 MG PO (13:49)
[2017-09-20] MEDS ORDERED: DOXYCYCLINE100 M3 PO (13:49)
--- NOTE | 2017-09-20 14:22 | NUR ---
Discharge instructions reviewed with patient/family. Patient receptive and verbalizes understanding. Follow-up care arranged. Written instructions given to patient/family. UVALDO GUTIERREZ
== END 2017-09-20 14:22 | disposition home or self-care (01) | DRG 202 ==
LOC: RESCLI 03:55 → 4E 15:36
PROVIDERS: Registered Nurse; ADMIT Student in an Organized Health Care Education/Training Program
DX: J45.901 Unspecified asthma with (acute) exacerbation (principal); J44.1 Chronic obstructive pulmonary disease with (acute) exacerbation; E44.0 Moderate protein-calorie malnutrition; E83.41 Hypermagnesemia; I25.10 Atherosclerotic heart disease of native coronary artery without angina pectoris; Z96.1 Presence of intraocular lens; R73.9 Hyperglycemia, unspecified; I10 Essential (primary) hypertension; T38.0X5A Adverse effect of glucocorticoids and synthetic analogues, initial encounter; E66.8 Other obesity; E78.5 Hyperlipidemia, unspecified; Z78.9 Other specified health status; I25.2 Old myocardial infarction; Z95.5 Presence of coronary angioplasty implant and graft; Z98.51 Tubal ligation status; Z95.0 Presence of cardiac pacemaker; Z82.49 Family history of ischemic heart disease and other diseases of the circulatory system; Z88.0 Allergy status to penicillin; Z88.8 Allergy status to other drugs, medicaments and biological substances; Z79.51 Long term (current) use of inhaled steroids; Z79.82 Long term (current) use of aspirin; Z79.899 Other long term (current) drug therapy; Z68.36 Body mass index [BMI] 36.0-36.9, adult; Z98.42 Cataract extraction status, left eye; Z98.41 Cataract extraction status, right eye; Y92.89 Other specified places as the place of occurrence of the external cause

== ENCOUNTER → 2017-10-02 | Outpatient (CLI) | payer MEDICARE ==
[~2017-10-02] MED LIST changes: +AMBIEN5 MG PO; +IBU800 MG PO; +PREVACID30 M2 PO
== END | disposition home or self-care (01) ==
LOC: RESCLI 02:07
DX: I10 Essential (primary) hypertension (principal); J44.1 Chronic obstructive pulmonary disease with (acute) exacerbation; E78.5 Hyperlipidemia, unspecified; I25.10 Atherosclerotic heart disease of native coronary artery without angina pectoris; F32.9 Major depressive disorder, single episode, unspecified; E66.01 Morbid (severe) obesity due to excess calories; Z68.35 Body mass index [BMI] 35.0-35.9, adult; Z88.0 Allergy status to penicillin; Z78.9 Other specified health status

== ENCOUNTER → 2017-12-25 | Outpatient (CLI) | payer MEDICARE | END | disposition home or self-care (01) | LOC: RESCLI 03:28 | DX: J44.1 Chronic obstructive pulmonary disease with (acute) exacerbation (principal); I10 Essential (primary) hypertension; E78.5 Hyperlipidemia, unspecified; E66.01 Morbid (severe) obesity due to excess calories; Z68.35 Body mass index [BMI] 35.0-35.9, adult; Z95.0 Presence of cardiac pacemaker ==

== ENCOUNTER 2018-01-06 12:39 | Emergency (ER) | payer MEDICARE ==
[~2018-01-06] VITALS: Ht 154.9 cm; Wt 81.6 kg
[2018-01-06 12:45] VITALS: BP 128/82
[2018-01-06] MEDS ORDERED: PREDNISONE20 M1 PO (12:51)
[2018-01-06] MEDS ORDERED: DOXYCYCLINE100 M3 PO (12:51)
[2018-01-06] MEDS ORDERED: LEVOFLOXACIN500 MG PO (13:47)
== END 2018-01-06 13:53 | disposition home or self-care (01) ==
LOC: ED 12:39
DX: J18.8 Other pneumonia, unspecified organism (principal); E66.9 Obesity, unspecified; I10 Essential (primary) hypertension; J44.1 Chronic obstructive pulmonary disease with (acute) exacerbation; I25.10 Atherosclerotic heart disease of native coronary artery without angina pectoris; Z68.30 Body mass index [BMI] 30.0-30.9, adult; Z98.51 Tubal ligation status; Z79.82 Long term (current) use of aspirin; Z79.899 Other long term (current) drug therapy; Z88.0 Allergy status to penicillin

== ENCOUNTER → 2018-03-25 | Outpatient (CLI) | payer MEDICARE ==
[2018-03-25 14:03] LABS: BASO # 0.1 10*3/uL (0.0-0.1); BASO % 1.1 % (0.0-1.0); EOS # 0.5 10*3/uL (0.0-0.4); EOS % 4.6 % (1.0-4.0); HEMOGLOBIN 12.9 g/dl (12.0-16.0); LYMPH # 2.6 10*3/uL (1.3-4.4); LYMPH % 23.4 % (27.0-41.0); MEAN CELL VOLUME 90.3 fl (81.0-99.0); MEAN CORPUSCULAR HGB 28.4 pg (27.0-31.0); MEAN CORPUSCULAR HGB CONC 31.5 g/dl (33.0-37.0); MEAN PLATELET VOLUME 9.6 fl (9.6-12.3); NEUT # 6.9 10*3/uL (2.3-7.9); NEUT % 61.6 % (47.0-73.0); PLATELET COUNT AUTOMATED 309 10*3/uL (130-400); RED BLOOD COUNT 4.54 10*6/uL (4.10-5.10); RED CELL DISTRI WIDTH 14.6 % (0-14.5); WHITE BLOOD COUNT 11.2 10*3/uL (4.8-10.8)
[2018-03-25 14:21] LABS: ALBUMIN 3.6 gm/dl (3.1-4.5); ALKALINE PHOSPHATASE 241 U/L (45-117); BUN 18 mg/dl (7-24); CHLORIDE 111 mmol/L (98-107); CHOLESTEROL 130 mg/dL (<200); CREATININE 0.99 mg/dL (0.55-1.02); HDL CHOLESTEROL 47 mg/dl (40-60); LDL CHOLESTEROL 64 mg/dL (9-159); POTASSIUM 3.8 mmol/L (3.5-5.1); SGOT/AST 40 IU/L (3-35); SGPT/ALT 80 U/L (12-78); SODIUM 144 mmol/L (136-145); TOTAL PROTEIN 6.9 gm/dL (6.4-8.2); TRIGLYCERIDES 97 mg/dl (<150); VLDL CHOLESTEROL 19 mg/dL (6-40)
== END | disposition home or self-care (01) ==
LOC: LAB 13:24
PROVIDERS: Internal Medicine
DX: I10 Essential (primary) hypertension (principal)

== ENCOUNTER → 2018-03-27 | Outpatient (CLI) | payer MEDICARE | END | disposition home or self-care (01) | LOC: RESCLI 00:33 | DX: Z00.00 Encounter for general adult medical examination without abnormal findings (principal); I10 Essential (primary) hypertension; I25.10 Atherosclerotic heart disease of native coronary artery without angina pectoris; J44.1 Chronic obstructive pulmonary disease with (acute) exacerbation; G47.01 Insomnia due to medical condition; F32.9 Major depressive disorder, single episode, unspecified; Z95.0 Presence of cardiac pacemaker; Z88.0 Allergy status to penicillin ==

== ENCOUNTER → 2018-04-23 | Outpatient (CLI) | payer MEDICARE | END | disposition home or self-care (01) | LOC: MAMMO 04-10 02:24 | DX: Z12.31 Encounter for screening mammogram for malignant neoplasm of breast (principal) ==

== ENCOUNTER → 2018-07-05 | Outpatient (CLI) | payer MEDICARE | END | disposition home or self-care (01) | LOC: US 07:30 | DX: K80.20 Calculus of gallbladder without cholecystitis without obstruction (principal); R74.0 Nonspecific elevation of levels of transaminase and lactic acid dehydrogenase [LDH]; Z95.0 Presence of cardiac pacemaker ==

== ENCOUNTER → 2018-07-10 | Outpatient (CLI) | payer MEDICARE | END | disposition home or self-care (01) | LOC: CT 10:50 | DX: K80.20 Calculus of gallbladder without cholecystitis without obstruction (principal); Z95.0 Presence of cardiac pacemaker ==

== ENCOUNTER → 2018-10-09 | Outpatient (CLI) | payer MEDICARE ==
[~2018-10-09] MED LIST changes: +AVPAK AZITHROM250 MG PO; +PREDNISONE50 MG PO; +PROAIR HFA8.5 GM INH; +TESSALON PERLE100 MG PO
== END | disposition home or self-care (01) ==
LOC: RESCLI 13:45
DX: J45.909 Unspecified asthma, uncomplicated (principal); I10 Essential (primary) hypertension; K21.9 Gastro-esophageal reflux disease without esophagitis; M54.5 Low back pain; G89.29 Other chronic pain; I25.10 Atherosclerotic heart disease of native coronary artery without angina pectoris; E78.5 Hyperlipidemia, unspecified; R74.0 Nonspecific elevation of levels of transaminase and lactic acid dehydrogenase [LDH]; R00.1 Bradycardia, unspecified; E66.09 Other obesity due to excess calories; Z68.34 Body mass index [BMI] 34.0-34.9, adult; Z79.899 Other long term (current) drug therapy; Z79.82 Long term (current) use of aspirin; Z95.0 Presence of cardiac pacemaker; Z88.0 Allergy status to penicillin; Z88.1 Allergy status to other antibiotic agents

== ENCOUNTER → 2018-11-19 | Outpatient (CLI) | payer MEDICARE ==
[2018-11-19 13:09] LABS: ALBUMIN 3.7 gm/dl (3.1-4.5); ALKALINE PHOSPHATASE 127 U/L (45-117); BILIRUBIN, DIRECT < 0.1 mg/dL (0.0-0.2); SGOT/AST 21 IU/L (3-35); SGPT/ALT 26 U/L (12-78); TOTAL PROTEIN 7.4 gm/dL (6.4-8.2)
== END | disposition home or self-care (01) ==
LOC: LAB 12:00
PROVIDERS: Internal Medicine Gastroenterology
DX: R94.6 Abnormal results of thyroid function studies (principal)

== ENCOUNTER 2018-11-20 14:47 | Emergency (ER) | payer MEDICARE ==
[~2018-11-20] VITALS: Ht 154.9 cm; Wt 81.6 kg
--- NOTE | ~2018-11-20 | EKG ---
[place], [place] ELECTROCARDIOGRAM REPORT NAME: MIKEY AKERS UNIT #: [id number] ROOM: DOCTOR: EPIPHANY DRAFT REPORT BIRTHDATE: [birth year] [facility] Test Date: 2018-11-20 Test Time: 15:22:21 Pat Name: MIKEY AKERS Department: Room: ER/DE Gender: F Event Sales Assistant: [id number] : 1955 Requested By: MARTHA BELTRE DNP Order Number: [id number] Reading MD: Andrez Palacio MD Measurements Intervals [place] Rate: 66 P: 2 MN: 171 QRS: -2 QRSD: 89 T: 28 QT: 421 QTc: 442 Interpretive Statements Sinus rhythm Inferior infarct, old Electronically Signed On 11-20-2018 17:39:19 PST by Andrez Palacio MD CM:EKGRPT:ELECTROCARDIOGRAM REPORT 1522 1739 MARTHA BELTRE DNP EPIPHANY DRAFT REPORT MARTHA BELTRE DNP
[2018-11-20 14:47] VITALS: BP 146/97
[~2018-11-20 14:47] MED LIST changes: -AVPAK AZITHROM250 MG PO; -PREDNISONE50 MG PO; -PROAIR HFA8.5 GM INH; -TESSALON PERLE100 MG PO
[2018-11-20 15:22] LABS: BASO # 0.2 10*3/uL (0.0-0.1); BASO % 1.7 % (0.0-1.0); EOS # 0.8 10*3/uL (0.0-0.4); EOS % 7.8 % (1.0-4.0); HEMATOCRIT 46.1 % (37.0-47.0); HEMOGLOBIN 15.5 g/dl (12.0-16.0); LYMPH # 3.2 10*3/uL (1.3-4.4); LYMPH % 31.3 % (27.0-41.0); MEAN CELL VOLUME 90.7 fl (81.0-99.0); MEAN CORPUSCULAR HGB 30.5 pg (27.0-31.0); MEAN CORPUSCULAR HGB CONC 33.6 g/dl (33.0-37.0); MEAN PLATELET VOLUME 9.9 fl (9.6-12.3); MONO # 0.9 10*3/uL (0.1-1.0); MONO % 8.7 % (3.0-9.0); NEUT # 5.1 10*3/uL (2.3-7.9); NEUT % 50.1 % (47.0-73.0); PLATELET COUNT AUTOMATED 322 10*3/uL (130-400); RED BLOOD COUNT 5.08 10*6/uL (4.10-5.10); RED CELL DISTRI WIDTH 13.8 % (0-14.5); WHITE BLOOD COUNT 10.1 10*3/uL (4.8-10.8)
[2018-11-20 16:01] LABS: ACT PARTIAL THROMBO TIME 22.9 SECONDS (20.8-31.5); INTERNATIONAL NORM RATIO 0.9 (2.0-3.5)
[2018-11-20 16:07] LABS: ALBUMIN 3.8 gm/dl (3.1-4.5); ALKALINE PHOSPHATASE 139 U/L (45-117); BUN 26 mg/dl (7-24); CHLORIDE 111 mmol/L (98-107); CREATININE 1.08 mg/dL (0.55-1.02); LDH 205 U/L (84-246); POTASSIUM 4.5 mmol/L (3.5-5.1); SGOT/AST 17 IU/L (3-35); SGPT/ALT 30 U/L (12-78); SODIUM 143 mmol/L (136-145); TOTAL PROTEIN 7.5 gm/dL (6.4-8.2)
[2018-11-20 16:08] LABS: TROPONIN I 0.025 ng/ml (<0.045)
[2018-11-20] MEDS ORDERED: PREDNISONE50 MG PO (16:37)
[2018-11-20] MEDS ORDERED: TESSALON PERLE100 MG PO (16:37)
[2018-11-20] MEDS ORDERED: AVPAK AZITHROM250 MG PO (16:37)
[2018-11-20] MEDS ORDERED: PROAIR HFA8.5 GM INH (16:45)
== END 2018-11-20 16:47 | disposition home or self-care (01) ==
LOC: ED 14:47
PROVIDERS: Nurse Practitioner Family
DX: J44.1 Chronic obstructive pulmonary disease with (acute) exacerbation (principal); I25.10 Atherosclerotic heart disease of native coronary artery without angina pectoris; I10 Essential (primary) hypertension; I25.2 Old myocardial infarction; Z95.0 Presence of cardiac pacemaker; Z95.5 Presence of coronary angioplasty implant and graft; Z88.0 Allergy status to penicillin; Z88.8 Allergy status to other drugs, medicaments and biological substances; Z79.899 Other long term (current) drug therapy; Z79.82 Long term (current) use of aspirin

== ENCOUNTER 2019-01-21 14:21 | Emergency (ER) | payer MEDICARE ==
[~2019-01-21] VITALS: Ht 154.9 cm; Wt 81.6 kg
--- NOTE | ~2019-01-21 | EKG ---
[place], [place] ELECTROCARDIOGRAM REPORT NAME: MIKEY AKERS UNIT #: [id number] ROOM: DOCTOR: EPIPHANY DRAFT REPORT BIRTHDATE: [birth year] [facility] Test Date: 2019-01-21 Test Time: 15:37:34 Pat Name: MIKEY AKERS Department: Room: Gender: F Hyperion Administrator: Sena Nguyen : 1955 Requested By: JUANITA MCGRATH Order Number: [id number] Reading MD: Tal Gomez MD Measurements Intervals [place] Rate: 66 P: 6 [place]: 202 QRS: 3 QRSD: 90 T: 25 QT: 416 QTc: 436 Interpretive Statements Atrial-paced complexes Inferior infarct, old Compared to ECG 11/20/2018 15:22:21 Sinus rhythm no longer present Myocardial infarct finding still present Electronically Signed On 01-23-2019 8:30:11 PDT by Tal Gomez MD CM:EKGRPT:ELECTROCARDIOGRAM REPORT 1537 0830 JUANITA MCGRATH EPIPHANY DRAFT REPORT JUANITA MCGRATH
[~2019-01-21 14:21] MED LIST changes: +AVPAK AZITHROM250 MG PO; +PREDNISONE50 MG PO; +PROAIR HFA8.5 GM INH; +TESSALON PERLE100 MG PO
[2019-01-21 14:22] VITALS: BP 125/91
[2019-01-21 15:06] LABS: BASO # 0.1 10*3/uL (0.0-0.1); BASO % 1.1 % (0.0-1.0); EOS # 0.5 10*3/uL (0.0-0.4); EOS % 6.1 % (1.0-4.0); HEMATOCRIT 43.2 % (37.0-47.0); LYMPH # 2.1 10*3/uL (1.3-4.4); LYMPH % 24.5 % (27.0-41.0); MEAN CELL VOLUME 92.3 fl (81.0-99.0); MEAN CORPUSCULAR HGB 29.9 pg (27.0-31.0); MEAN CORPUSCULAR HGB CONC 32.4 g/dl (33.0-37.0); MEAN PLATELET VOLUME 9.1 fl (9.6-12.3); MONO # 0.8 10*3/uL (0.1-1.0); MONO % 9.4 % (3.0-9.0); NEUT % 58.5 % (47.0-73.0); PLATELET COUNT AUTOMATED 285 10*3/uL (130-400); RED BLOOD COUNT 4.68 10*6/uL (4.10-5.10); RED CELL DISTRI WIDTH 14.2 % (0-14.5); WHITE BLOOD COUNT 8.5 10*3/uL (4.8-10.8)
[2019-01-21 15:24] LABS: ALBUMIN 3.4 gm/dl (3.1-4.5); ALKALINE PHOSPHATASE 102 U/L (45-117); BUN 19 mg/dl (7-24); CHLORIDE 111 mmol/L (98-107); CREATININE 1.08 mg/dL (0.55-1.02); SGOT/AST 12 IU/L (3-35); SGPT/ALT 24 U/L (12-78); SODIUM 143 mmol/L (136-145); TOTAL PROTEIN 6.8 gm/dL (6.4-8.2)
[2019-01-21 15:26] LABS: TROPONIN I 0.031 ng/ml (<0.045)
[2019-01-21] MEDS ORDERED: PREDNISONE10 MG PO (16:59)
[2019-01-21] MEDS ORDERED: ZITHROMAX250 MG PO (16:59)
[2019-02-07] MEDS ORDERED: OYSTER SHELL 51 EACH PO (02:10)
[2019-02-08] MEDS ORDERED: LEVAQUIN750 M1 PO (15:24)
[2019-02-08] MEDS ORDERED: PROTONIX40 MG PO (15:24)
== END 2019-01-21 17:20 | disposition home or self-care (01) ==
LOC: ED 14:21
PROVIDERS: Nurse Practitioner Family
DX: J40 Bronchitis, not specified as acute or chronic (principal); J44.9 Chronic obstructive pulmonary disease, unspecified; I25.10 Atherosclerotic heart disease of native coronary artery without angina pectoris; E78.5 Hyperlipidemia, unspecified; I10 Essential (primary) hypertension; E66.9 Obesity, unspecified; Z68.39 Body mass index [BMI] 39.0-39.9, adult; Z77.22 Contact with and (suspected) exposure to environmental tobacco smoke (acute) (chronic); Z88.0 Allergy status to penicillin; Z88.8 Allergy status to other drugs, medicaments and biological substances; Z79.899 Other long term (current) drug therapy; Z79.82 Long term (current) use of aspirin

== ENCOUNTER 2019-01-24 01:04 | Inpatient (IN) | payer MEDICARE ==
[~2019-01-24] VITALS: Ht 154.9 cm; Wt 85.5 kg
--- NOTE | ~2019-01-24 | EKG ---
[place], [place] ELECTROCARDIOGRAM REPORT NAME: MIKEY AKERS UNIT #: [id number] ROOM: 529 DOCTOR: ISAI DRAFT REPORT BIRTHDATE: [birth year] [facility] Test Date: 2019-01-24 Test Time: 16:12:12 Pat Name: MIKEY AKERS Department: Room: 529 1 Gender: F Milliner Helper: Loulou Elizondo : 1955 Requested By: ANASTASIA GLORIA Order Number: [id number] Reading MD: Diamond Zimmerman MD Measurements Intervals [place] Rate: 75 P: 11 [place]: 191 QRS: 7 QRSD: 91 T: 26 QT: 386 QTc: 432 Interpretive Statements Atrial-paced complexes Inferior infarct, old Compared to ECG 01/21/2019 15:37:34 No significant changes Electronically Signed On 01-27-2019 10:02:13 PDT by Diamond Zimmerman MD CM:EKGRPT:ELECTROCARDIOGRAM REPORT 1612 1002 ANASTASIA ALEX DRAFT REPORT ANASTASIA GLORIA
--- NOTE | ~2019-01-24 | CON ---
[place], [place] REPORT OF CONSULTATION [id number] UNIT #: [id number] ROOM: 529 DOCTOR: DALTON CORONA MD BIRTHDATE: [birth year] DOS: 01/27/2019 PULMONARY CONSULTATION, EVALUATION AND MANAGEMENT CONSULTATION REQUESTED BY: Hospitalist service. REASON FOR CONSULTATION: For assessment of acute exacerbation of COPD. HISTORY OF PRESENT ILLNESS: This 63-year-old white female patient who has been admitted as outpatient under the care of hospice services 0n 01/24/2019. She has been managed for acute exacerbation of bronchial asthma. She presented to the hospital Emergency Room, admitted to the hospital on 01/24/2019 as she developed increased symptoms of shortness of breath, which has been noted with gradual worsening. The shortness of breath has been noted gradually worse in the last few weeks. The symptoms were noted markedly increased at the time of the admission to the hospital. She has been noted without any symptoms of chest pain. She has been prescribed a Z-Serafin and not showing improvement in symptoms. She was seen in the [facility] and was admitted to the hospital for further care. She does report symptoms of wheezing at time with the chest tightness. The patient stated reduction in the respiratory symptoms since hospitalization and current medical management. REVIEW OF SYSTEMS: CONSTITUTIONAL: Fatigue and tiredness noted without any symptoms of fever or chills. EYES: Denies any burning, redness, or tenderness. EARS, NOSE, THROAT SYMPTOMS: Denies sore throat, hoarseness, otalgia, postnasal drainage or epistaxis. CARDIOVASCULAR: No angina pain, edema, pain of the lower extremities. GASTROINTESTINAL: Denies dysphagia, nausea, vomiting, diarrhea, abdominal pain, hematemesis, melena, or hematochezia. GENITOURINARY: Denies symptoms of dysuria, suprapubic pain or hematuria. MUSCULOSKELETAL: No acute joint pain, redness, or tenderness. SKIN: Noted without any lesions or rashes. MUSCULOSKELETAL: Noted without any acute deformities. CENTRAL NERVOUS SYSTEM: No dizziness, headache, diplopia, syncopal episodes. Remaining systems were reviewed, they were noted all negative. PAST MEDICAL HISTORY: 1. Known with history of diagnosed uncomplicated severe persistent bronchial asthma. 2. Allergic rhinitis. 3. Moderate obesity. 4. Tenosynovitis history. 5. Hyperlipidemia. 6. Essential hypertension. 7. Coronary artery disease. PAST SURGICAL HISTORY: [place], [place] REPORT OF CONSULTATION [id number] UNIT #: [id number] ROOM: 529 DOCTOR: DALTON CORONA MD BIRTHDATE: [birth year] 1. Cardiac catheterization and coronary stents insertion. 2. T and A. 3. Bilateral breast reduction. 4. Lens implantation. 5. Insertion of the pacemaker. 6. Tubal ligation. SOCIAL HISTORY: The patient , has 2 children, lives at home. Denies any history of alcohol use, illicit drug use. She does not smoke cigarettes now or in the past. FAMILY HISTORY: The patient's father at 70 years old, unknown medical illnesses. Mother at the age of 50 years of complication related to congestive heart failure. HOME MEDICATIONS: The patient was taken by the patient in home medications, setting noted Symbicort HFA inhaler, ferrous sulfate with the nebulizer, ProAir HFA p.r.n. use, Lipitor, lisinopril, recent prescription of tapering prednisone and azithromycin. The patient noted ineffective. CURRENT MEDICATIONS: Administered for the patient was lisinopril, loratadine, aspirin, Plavix, amlodipine, Norvasc, Protonix, Mucinex, Lipitor, Solu-Medrol 40 mg b.i.d., DuoNeb q. 4 hours, Levaquin. Ordered and other medications p.r.n. use. DRUG ALLERGY HISTORY: PENICILLIN CAUSING SHORTNESS OF BREATH, NITROGLYCERIN, ALLERGIES WERE REPORTED, UNKNOWN REACTIONS. PHYSICAL EXAMINATION: VITAL SIGNS: For the patient, which have recorded shows a normal temperature, respiratory rate 18-20, heart rate of 80-108, blood pressure 140/81. The pulse ox saturation on room air was 94% saturation at rest. HEENT: Head was atraumatic. Eyes nonicterus. NECK: Supple. CARDIOVASCULAR: S1, S2 is audible. LUNGS: The patient was noted with decreased breath sounds with expiratory wheezing, no crackles. ABDOMEN: Soft, nontender. Bowel sounds present. EXTREMITIES: The patient was noted without any acute edema, clubbing or cyanosis. MUSCULOSKELETAL: Without acute deformities. LABORATORY DATA: The patient's CBC on 01/21/2019 in the Emergency Room assessment WBC count 8.5, hemoglobin and hematocrit normal, platelet count normal at 6.1% eosinophils. CMP; The patient's glucose normal at that time, BUN normal, creatinine 1.08. CBC that was done on 01/24/2019, emergent WBC count 9.8 at that time. The CMP that was done, BUN 29, creatinine 1.21. PT/PTT on the 01/25/2019 of this month was normal. No other labs was done this morning. BUN and creatinine on 01/25/2018, BUN at that time 25, creatinine was decreased to 1.10. Rapid Influenza A and B, nasal washing antigen negative. Chest x-ray [place], [place] REPORT OF CONSULTATION NAME: MIKEY AKERS UNIT #: [id number] ROOM: 529 DOCTOR: MOISES SIMMONS MD,DALTON BIRTHDATE: [birth year] that was done was noted without any acute pulmonary infiltration. IMPRESSION: 1. The patient currently admitted to the hospital noted with allergic phenotype bronchial asthma with recurrent acute exacerbation. The patient was seen in the office on 01/13/2019, the patient was noted in stable condition. She developed acute respiratory symptoms with acute exacerbation, uncomplicated severe persistent bronchial asthma. Vital bronchitis would be considered. 2. The patient with a history of essential hypertension and other medical illnesses and acute kidney injury secondary to intravascular volume depletion. PLAN OF TREATMENT: Continue Solu-Medrol and bronchodilators. Discontinue antibiotics is not needed. There was no evidence of bacterial infection. Assess the patient as an outpatient for the medical management of allergic phenotype bronchial asthma with injection for the patient's medication such as % or. In the meantime, continuation of bronchodilator therapy, plan of management with addition of treatment changes will be made based on progression of the illness. DALTON DE LEON MD CM:CONSTR:REPORT OF CONSULTATION 1421 01/27/192034 interface
--- NOTE | ~2019-01-24 | PR ---
[place], [place] PROGRESS NOTE NAME: MIKEY AKERS UNIT #: [id number] ROOM: 529 DOCTOR: DALTON CORONA MD BIRTHDATE: [birth year] DOS: 01/28/2019 PULMONARY PROGRESS NOTE SUBJECTIVE: The patient noted comfortable at this time, resting on the bed. Shortness of breath noted decreased from the last 24 hours. There were symptoms of cough, which were noted nonproductive with resolving wheezing. There were no symptoms of chest pain. OBJECTIVE: VITAL SIGNS: Normal temperature, respiratory rate 18, heart rate 91, blood pressure 140/90. The pulse oxygen saturation on room air was 93% saturation. HEENT: Head was atraumatic. Eyes nonicterus. CARDIOVASCULAR: S1, S2 audible. LUNGS: Decreased breath sounds with moderate expiratory wheezing, decreased from previous examination. ABDOMEN: Soft, nontender, obese. EXTREMITIES: No changes. LABORATORY DATA: CBC: WBC count 17.5. Remaining CBC normal. Creatinine was reported as 1.23 today. Urine for Legionella antigen and strep antigen were both noted as negative. IMPRESSION: 1. The patient who has been currently noted with acute phenotype. 2. Uncomplicated severe bronchial asthma with acute exacerbation. 3. Leukocytosis, steroid induced. 4. Viral bronchitis. PLAN OF MANAGEMENT: Continuation of bronchodilators and oxygen supplementation and progress. Decrease the Solu-Medrol dose to 40 mg daily. Assess for the next 24 hours and then consider home discharge on oral tapering prednisone depending on further improvement and reduction in the respiratory symptoms. [place], [place] PROGRESS NOTE NAME: MIKEY AKERS UNIT #: [id number] ROOM: 529 DOCTOR: DALTON CORONA MD BIRTHDATE: [birth year] DALTON DE LEON MD CM:PNTRANS [id number] DALTON SIMMONS MD 02/07/19 0832 interface
[2019-01-24 15:30] VITALS: BP 131/95
--- NOTE | 2019-01-24 15:30 | NUR ---
A 63, admitted to , under the services of CLAYTON Causey FACP, MD with a diagnosis of COPD EXACERBATION. Chief complaint is WHEEZING, COUGHING. Patient arrived via ambulatory from [place]. Monitor applied. Initial assessment completed. Vital signs taken and recorded. CLAYTON CAUSEY FACP, MD notified of admission to the unit. Orders received. See assessment for past medical history, medications and allergies. Patient and/or family oriented to unit. [facility] visitation policy reviewed. Clothing/patient valuable form completed. SHAZIA NAZARIO
[2019-01-24] MEDS ORDERED: SYMB160 INH (15:49)
--- NOTE | 2019-01-24 15:49 | NUR ---
PATIENT VERIFIED HOME MEDS, MED REC UPDATED PER POLICY.
[2019-01-24 15:55] LABS: BASO # 0.1 10*3/uL (0.0-0.1); BASO % 0.5 % (0.0-1.0); EOS % 0.1 % (1.0-4.0); HEMATOCRIT 44.6 % (37.0-47.0); HEMOGLOBIN 14.5 g/dl (12.0-16.0); LYMPH # 1.8 10*3/uL (1.3-4.4); LYMPH % 18.6 % (27.0-41.0); MEAN CELL VOLUME 92.9 fl (81.0-99.0); MEAN CORPUSCULAR HGB 30.2 pg (27.0-31.0); MEAN CORPUSCULAR HGB CONC 32.5 g/dl (33.0-37.0); MEAN PLATELET VOLUME 9.2 fl (9.6-12.3); MONO # 0.3 10*3/uL (0.1-1.0); MONO % 2.6 % (3.0-9.0); NEUT # 7.6 10*3/uL (2.3-7.9); NEUT % 77.2 % (47.0-73.0); PLATELET COUNT AUTOMATED 340 10*3/uL (130-400); RED CELL DISTRI WIDTH 14.3 % (0-14.5); WHITE BLOOD COUNT 9.8 10*3/uL (4.8-10.8)
[2019-01-24 16:10] LABS: ALBUMIN 3.8 gm/dl (3.1-4.5); CREATININE 1.21 mg/dL (0.55-1.02); PHOSPHOROUS 2.1 mg/dL (2.5-4.9); POTASSIUM 4.3 mmol/L (3.5-5.1)
--- NOTE | 2019-01-24 18:05 | NUR ---
IV started right hand with #22 protective cath after 1 attempts. Site prepped with Chloroprep. Sterile dressing applied. Patient tolerated procedure well. IV NORMAL SALINE infusing at 100 cc/hr. SHAZIA NAZARIO
[2019-01-24 20:00] VITALS: BP 133/94
[2019-01-25] VITALS: BP 141/88
[2019-01-25 04:30] VITALS: BP 151/83
[2019-01-25 06:24] LABS: BASO % 0.2 % (0.0-1.0); HEMATOCRIT 41.2 % (37.0-47.0); HEMOGLOBIN 13.4 g/dl (12.0-16.0); LYMPH # 1.8 10*3/uL (1.3-4.4); LYMPH % 16.7 % (27.0-41.0); MEAN CELL VOLUME 92.8 fl (81.0-99.0); MEAN CORPUSCULAR HGB 30.2 pg (27.0-31.0); MEAN CORPUSCULAR HGB CONC 32.5 g/dl (33.0-37.0); MEAN PLATELET VOLUME 9.1 fl (9.6-12.3); MONO # 0.5 10*3/uL (0.1-1.0); MONO % 4.5 % (3.0-9.0); NEUT # 8.2 10*3/uL (2.3-7.9); NEUT % 76.8 % (47.0-73.0); PLATELET COUNT AUTOMATED 309 10*3/uL (130-400); RED BLOOD COUNT 4.44 10*6/uL (4.10-5.10); RED CELL DISTRI WIDTH 13.9 % (0-14.5); WHITE BLOOD COUNT 10.7 10*3/uL (4.8-10.8)
[2019-01-25 06:44] LABS: ALBUMIN 3.4 gm/dl (3.1-4.5); BUN 25 mg/dl (7-24); CHLORIDE 109 mmol/L (98-107); CHOLESTEROL 203 mg/dL (<200); PHOSPHOROUS 3.5 mg/dL (2.5-4.9); POTASSIUM 4.7 mmol/L (3.5-5.1); SGOT/AST 9 IU/L (3-35); SGPT/ALT 23 U/L (12-78); SODIUM 140 mmol/L (136-145); TOTAL PROTEIN 6.4 gm/dL (6.4-8.2); TRIGLYCERIDES 140 mg/dl (<150); VLDL CHOLESTEROL 28 mg/dL (6-40)
[2019-01-25 06:50] LABS: ALKALINE PHOSPHATASE 91 U/L (45-117); FREE T4 0.98 ng/dl (0.76-1.46); HDL CHOLESTEROL 62 mg/dl (40-60); LDL CHOLESTEROL 113 mg/dL (9-159); THYROID STIM HORMONE (HS) 0.193 uIU/ml (0.358-4.75)
[2019-01-25 06:59] LABS: ACT PARTIAL THROMBO TIME 20.7 SECONDS (20.8-31.5)
[2019-01-25 07:27] LABS: VITAMIN D, 25-HYDROXY 31.5 ng/mL (30-100)
[2019-01-25 08:00] VITALS: BP 142/90
[2019-01-25 12:00] VITALS: BP 146/98
[2019-01-25 16:00] VITALS: BP 149/92
[2019-01-25] MEDS ORDERED: LISINOPRIL20 MG PO (16:46)
--- NOTE | 2019-01-25 17:07 | NUR ---
PT ASKED IF SHE HAD HER LISINOPRIL TODAY AND I TOLD HER THAT WE DO NOT HAVE THAT ORDERED FOR HER. I WENT OVER HER ENTIRE MED REC WITH HER TO DOUBLE CHECK HER OTHER MEDS AND SHE STATES SHE TAKE LOPRESSOR. WE ARE GIVING HER TOPROL XL. SHE STATED SHE JUST RECENTLY HAD THE [facility] CALL IT IN FOR HER. SHE STATED THE ONLY PLACE SHE GETS HER MEDS FILLED IS [facility]. I CALLED AND SPOKE WITH THE PHARMACIST AT [facility] AND HE STATED THEY HAVE NOT FILLED THE LOPRESSOR SINCE FEBRUARY OF LAST YEAR AND SHE IS NOT TAKE ANY METOPROLOL AT ALL. CALLED AND NOTIFIED DR CAMPUZANO AND HE HAD ME DISCONTINUE THE TOPROL XL AND ADD THE LISINOPRIL.
--- NOTE | 2019-01-25 19:30 | NUR ---
BEDSIDE REPORT RECIEVED FROM DAY SHIFT RN. PT IS RESTING IN BED AT THIS TIME AND DENIES ANY PAIN OR DISCOMFORT. RESPIRATIONS ARE EASY AND NONLABORED ON ROOM AIR. SHE DENIES ANY SHORTNESS OF BREATH AT REST. FAMILY IS AT THE BEDSIDE AT THIS TIME. PT DENIES ANY NEEDS AT THIS TIME. WILL CONTINUE TO MONITOR.
[2019-01-25 20:00] VITALS: BP 150/94
--- NOTE | 2019-01-25 20:43 | NUR ---
PT REQUESTED AND RECIEVED PRN ORDER FOR TYLENOL FOR COMPLAINTS OF A HEAD ACHE. WILL MONITOR FOR EFFECTIVENESS.
[2019-01-26] VITALS: BP 130/90
--- NOTE | 2019-01-26 04:30 | NUR ---
PT IS ASLEEP IN BED AT THIS TIME WITH NO OBVIOUS SIGNS OF PAIN OR DISCOMFORT. RESPIRATIONS ARE EASY AND NONLABORED. BED IS LOCKED AND IN THE LOWEST POSITION. WILL CONTINUE TO MONITOR.
[2019-01-26 08:00] VITALS: BP 140/80
[2019-01-26 12:00] VITALS: BP 138/87
--- NOTE | 2019-01-26 12:55 | NUR ---
PHYSICIAN WAS NOTIFIED OF DR. MOISES PEGUERO. RESPONSE OF NOTIFICATION WAS OK THANK YOU. MAE SMITH
[2019-01-26 16:00] VITALS: BP 140/81
--- NOTE | 2019-01-26 19:38 | NUR ---
BEDSIDE REPORT RECIEVED FROM DAY SHIFT RN. PT IS RESTING IN BED AT THIS TIME AND DENIES ANY PAIN OR DISCOMFORT. RESPIRATIONS ARE EASY AND NONLABORED ON ROOM AIR. FAMILY IS AT THE BEDSIDE. PT STATES SHE STILL FEELS VERY WHEEZY, I&E WHEEZES NOTED THROUGHOUT LUNGFIELDS. PT DENIES ANY NEEDS AT THIS TIME. WILL CONTINUE TO MONITOR.
[2019-01-26 20:00] VITALS: BP 137/91
[2019-01-27] VITALS: BP 141/118
[2019-01-27 08:00] VITALS: BP 154/90
--- NOTE | 2019-01-27 09:00 | NUR ---
Risk Developer in to talk to patient. Patient states lives at home with boyfriend. There are few steps in the home. Physician: resident clinic [facility]acy: [facility] health services: none Patient's level of ADLs: INDEPENDENT Patient has working utilities: all working DME: none Follow-up physician's appointment after d/c: will be made by hospitalist nurse director upon discharge Does patient want to access PORTAL?: no Discharge plan discussed with patient, patient lives at home with boyfriend, she is independent in adls and ambulation, patient states she does not drive but either walks or uses a cab, she states she will be going home when able and denies any home needs, case mangement will follow. TISH KUMAR
[2019-01-27 12:00] VITALS: BP 140/80
[2019-01-27 16:00] VITALS: BP 135/89
[2019-01-27] MEDS ORDERED: METOPROLOL TART50 M1 PO (17:25)
[2019-01-27 20:00] VITALS: BP 155/101
--- NOTE | 2019-01-27 21:40 | NUR ---
ASSUMED CARE OF PATIENT. PATIENT IS RESTING IN BED WITH EASY AND REGULAR RESPERS ON ROOM AIR. ASSESSMENT IS COMPLETE WITH NO C/O OR S/S OF DISTRESS NOTED AT THIS TIME. BED IS LOW, LOCKED, AND CALL LIGHT IS WITHIN REACH. 2200 MEDICATION GIVEN AT THIS TIME AND PATIENT TOLERATED WELL. SEE SHIFT ASSESSMENT.
[2019-01-28] VITALS: BP 131/83
--- NOTE | 2019-01-28 02:30 | NUR ---
PATIENT IS SLEEPING WITH EASY AND REGULAR RESPERS. CALL LIGHT IS WITHIN REACH.
--- NOTE | 2019-01-28 06:10 | NUR ---
PATIENT AROUSES EASILY FOR ADMINISTRATION OF 0600 MEDICATION. PATIENT TOLERATED WELL, CALL LIGHT IS WITHIN REACH.
[2019-01-28 06:28] LABS: HEMATOCRIT 40.5 % (37.0-47.0); MEAN CELL VOLUME 92.9 fl (81.0-99.0); MEAN CORPUSCULAR HGB 29.8 pg (27.0-31.0); MEAN CORPUSCULAR HGB CONC 32.1 g/dl (33.0-37.0); MEAN PLATELET VOLUME 9.2 fl (9.6-12.3); PLATELET COUNT AUTOMATED 315 10*3/uL (130-400); RED BLOOD COUNT 4.36 10*6/uL (4.10-5.10); RED CELL DISTRI WIDTH 14.3 % (0-14.5); WHITE BLOOD COUNT 17.5 10*3/uL (4.8-10.8)
[2019-01-28 06:47] LABS: CREATININE 1.23 mg/dL (0.55-1.02)
[2019-01-28 07:16] LABS: PLATELET SUFFICIENCY NORMAL (NORMAL); TOTAL CELLS COUNTED 100 #CELLS
[2019-01-28 08:00] VITALS: BP 140/90
--- NOTE | 2019-01-28 09:00 | NUR ---
case management visits with patient, patient states she will be going home when able and denies any home needs
[2019-01-28 12:00] VITALS: BP 107/54
[2019-01-28] MEDS ORDERED: PREDNISONE10 MG PO (14:20)
--- NOTE | 2019-01-28 16:30 | NUR ---
DISCHARGED TO HOME.
[2019-02-07] MEDS ORDERED: OYSTER SHELL 51 EACH PO (02:10)
[2019-02-08] MEDS ORDERED: PROTONIX40 MG PO (15:24)
[2019-02-08] MEDS ORDERED: LEVAQUIN750 M1 PO (15:24)
== END 2019-01-28 16:30 | disposition home or self-care (01) | DRG 202 ==
LOC: RESCLI 01:04 → 5E 14:52
PROVIDERS: Student in an Organized Health Care Education/Training Program; ADMIT Internal Medicine
DX: J45.51 Severe persistent asthma with (acute) exacerbation (principal); E44.0 Moderate protein-calorie malnutrition; J44.9 Chronic obstructive pulmonary disease, unspecified; R73.9 Hyperglycemia, unspecified; I10 Essential (primary) hypertension; T38.0X5A Adverse effect of glucocorticoids and synthetic analogues, initial encounter; J20.8 Acute bronchitis due to other specified organisms; E66.9 Obesity, unspecified; I25.10 Atherosclerotic heart disease of native coronary artery without angina pectoris; E34.51 Complete androgen insensitivity syndrome; Z95.5 Presence of coronary angioplasty implant and graft; I25.2 Old myocardial infarction; Z98.51 Tubal ligation status; Z98.49 Cataract extraction status, unspecified eye; Z95.0 Presence of cardiac pacemaker; Z82.49 Family history of ischemic heart disease and other diseases of the circulatory system; Z83.3 Family history of diabetes mellitus; Z88.0 Allergy status to penicillin; Z88.6 Allergy status to analgesic agent; Z79.82 Long term (current) use of aspirin; Z79.899 Other long term (current) drug therapy; Y92.89 Other specified places as the place of occurrence of the external cause; Z68.35 Body mass index [BMI] 35.0-35.9, adult

== ENCOUNTER → 2019-02-13 | Outpatient (CLI) | payer MEDICARE ==
[~2019-02-13] MED LIST changes: +LEVAQUIN750 M1 PO; +METOPROLOL TART50 M1 PO; +OYSTER SHELL 51 EACH PO; +PROTONIX40 MG PO; +SYMB160 INH
== END | disposition home or self-care (01) ==
LOC: RESCLI 01:30
DX: Z09 Encounter for follow-up examination after completed treatment for conditions other than malignant neoplasm (principal); K92.2 Gastrointestinal hemorrhage, unspecified; K22.11 Ulcer of esophagus with bleeding; I25.10 Atherosclerotic heart disease of native coronary artery without angina pectoris; I10 Essential (primary) hypertension; E78.2 Mixed hyperlipidemia; J45.20 Mild intermittent asthma, uncomplicated; E83.51 Hypocalcemia; J30.9 Allergic rhinitis, unspecified; E66.9 Obesity, unspecified

== ENCOUNTER → 2019-02-27 | Outpatient (CLI) | payer MEDICARE ==
[2019-02-27 15:22] LABS: BASO # 0.1 10*3/uL (0.0-0.1); BASO % 1.3 % (0.0-1.0); EOS # 0.3 10*3/uL (0.0-0.4); EOS % 4.2 % (1.0-4.0); HEMATOCRIT 29.2 % (37.0-47.0); HEMOGLOBIN 8.5 g/dl (12.0-16.0); LYMPH # 2.4 10*3/uL (1.3-4.4); LYMPH % 34.7 % (27.0-41.0); MEAN CELL VOLUME 84.6 fl (81.0-99.0); MEAN CORPUSCULAR HGB 24.6 pg (27.0-31.0); MEAN CORPUSCULAR HGB CONC 29.1 g/dl (33.0-37.0); MEAN PLATELET VOLUME 8.8 fl (9.6-12.3); MONO # 0.7 10*3/uL (0.1-1.0); MONO % 9.6 % (3.0-9.0); NEUT # 3.4 10*3/uL (2.3-7.9); NEUT % 49.2 % (47.0-73.0); PLATELET COUNT AUTOMATED 391 10*3/uL (130-400); RED BLOOD COUNT 3.45 10*6/uL (4.10-5.10); RED CELL DISTRI WIDTH 15.8 % (0-14.5)
== END | disposition home or self-care (01) ==
LOC: LAB 14:43
PROVIDERS: Internal Medicine
DX: Z09 Encounter for follow-up examination after completed treatment for conditions other than malignant neoplasm (principal); E78.5 Hyperlipidemia, unspecified; I10 Essential (primary) hypertension; I25.10 Atherosclerotic heart disease of native coronary artery without angina pectoris

== ENCOUNTER → 2019-03-27 | Outpatient (CLI) | payer MEDICARE | END | disposition home or self-care (01) | LOC: RESCLI 00:59 | DX: I25.10 Atherosclerotic heart disease of native coronary artery without angina pectoris (principal); K92.2 Gastrointestinal hemorrhage, unspecified; K22.11 Ulcer of esophagus with bleeding; K59.00 Constipation, unspecified; I10 Essential (primary) hypertension; E78.2 Mixed hyperlipidemia; J45.20 Mild intermittent asthma, uncomplicated; E83.51 Hypocalcemia; J30.9 Allergic rhinitis, unspecified; J44.9 Chronic obstructive pulmonary disease, unspecified; Z95.0 Presence of cardiac pacemaker; Z79.899 Other long term (current) drug therapy ==

== ENCOUNTER → 2019-04-08 | Outpatient (CLI) | payer MEDICARE ==
[2019-04-08 14:40] LABS: HEMATOCRIT 33.7 % (37.0-47.0); HEMOGLOBIN 9.5 g/dl (12.0-16.0); LYMPH # 1.9 10*3/uL (1.3-4.4); LYMPH % 34.9 % (27.0-41.0); MEAN CELL VOLUME 78.4 fl (81.0-99.0); MEAN CORPUSCULAR HGB 22.1 pg (27.0-31.0); MEAN CORPUSCULAR HGB CONC 28.2 g/dl (33.0-37.0); MONO # 0.5 10*3/uL (0.1-1.0); MONO % 8.6 % (3.0-9.0); NEUT % 56.1 % (47.0-73.0); PLATELET COUNT AUTOMATED 396 10*3/uL (130-400); WHITE BLOOD COUNT 5.4 10*3/uL (4.8-10.8)
[2019-04-08 15:29] LABS: FERRITIN 12.6 ng/mL (10.0-291.0)
== END | disposition home or self-care (01) ==
LOC: LAB 13:53
PROVIDERS: Student in an Organized Health Care Education/Training Program
DX: K22.11 Ulcer of esophagus with bleeding (principal); E11.9 Type 2 diabetes mellitus without complications; D64.9 Anemia, unspecified

== ENCOUNTER → 2019-04-10 | Outpatient (CLI) | payer MEDICARE | END | disposition home or self-care (01) | LOC: RESCLI 01:19 | DX: Z13.820 Encounter for screening for osteoporosis (principal); K22.11 Ulcer of esophagus with bleeding; E78.2 Mixed hyperlipidemia; J30.9 Allergic rhinitis, unspecified; I25.10 Atherosclerotic heart disease of native coronary artery without angina pectoris; I10 Essential (primary) hypertension; J45.20 Mild intermittent asthma, uncomplicated; K92.2 Gastrointestinal hemorrhage, unspecified; E83.51 Hypocalcemia; Z79.899 Other long term (current) drug therapy ==

== ENCOUNTER 2019-05-13 13:24 | Emergency (ER) | payer MEDICARE ==
[~2019-05-13] VITALS: Ht 154.9 cm; Wt 83.0 kg
--- NOTE | ~2019-05-13 | EKG ---
[place], [place] ELECTROCARDIOGRAM REPORT NAME: MIKEY AKERS UNIT #: [id number] ROOM: DOCTOR: EPIPHANY DRAFT REPORT BIRTHDATE: [birth year] [facility] Test Date: 2019-05-13 Test Time: 13:30:45 Pat Name: MIKEY AKERS Department: Room: Gender: F Nicker: : 1955 Requested By: QI PANDA Order Number: [id number] Reading MD: Angeli Mora MD Measurements Intervals [place] Rate: 80 P: 37 SD: 164 QRS: -3 QRSD: 95 T: -2 QT: 394 QTc: 455 Interpretive Statements Sinus rhythm Probable left ventricular hypertrophy Inferior infarct, old Compared to ECG 02/03/2019 15:43:18 Sinus tachycardia no longer present Myocardial infarct finding still present Electronically Signed On 05-13-2019 13:59:09 PDT by Angeli Mora MD CM:EKGRPT:ELECTROCARDIOGRAM REPORT 1330 [id number] QI ALEX DRAFT REPORT QI PANDA M.D.
[2019-05-13 13:45] LABS: BASO % 0.1 % (0.0-1.0); HEMATOCRIT 41.5 % (37.0-47.0); LYMPH # 1.6 10*3/uL (1.3-4.4); LYMPH % 18.8 % (27.0-41.0); MEAN CELL VOLUME 81.1 fl (81.0-99.0); MEAN CORPUSCULAR HGB 23.4 pg (27.0-31.0); MEAN CORPUSCULAR HGB CONC 28.9 g/dl (33.0-37.0); MEAN PLATELET VOLUME 9.3 fl (9.6-12.3); MONO # 0.9 10*3/uL (0.1-1.0); MONO % 10.6 % (3.0-9.0); NEUT # 6.1 10*3/uL (2.3-7.9); NEUT % 70.2 % (47.0-73.0); PLATELET COUNT AUTOMATED 328 10*3/uL (130-400); RED BLOOD COUNT 5.12 10*6/uL (4.10-5.10); RED CELL DISTRI WIDTH 23.3 % (0-14.5); WHITE BLOOD COUNT 8.7 10*3/uL (4.8-10.8)
[2019-05-13 13:57] LABS: ACT PARTIAL THROMBO TIME 23.2 SECONDS (20.0-32.1); INTERNATIONAL NORM RATIO 0.9 (2.0-3.5)
[2019-05-13 14:04] LABS: ALBUMIN 3.9 gm/dl (3.1-4.5); ALKALINE PHOSPHATASE 230 U/L (45-117); BUN 21 mg/dl (7-24); CHLORIDE 110 mmol/L (98-107); CREATININE 1.03 mg/dL (0.55-1.02); SGOT/AST 24 IU/L (3-35); SGPT/ALT 36 U/L (12-78); SODIUM 139 mmol/L (136-145); TOTAL PROTEIN 7.4 gm/dL (6.4-8.2)
[2019-05-13 14:15] LABS: TROPONIN I < 0.015 ng/ml (<0.045)
[2019-05-13 14:21] VITALS: BP 126/83
[2019-05-13] MEDS ORDERED: PREDNISONE50 MG PO (15:04)
[2019-05-13] MEDS ORDERED: ZITHROMAX250 MG PO (15:04)
[2019-05-13] MEDS ORDERED: TESSALON PERLE100 M1 PO (15:04)
== END 2019-05-13 15:13 | disposition home or self-care (01) ==
LOC: ED 13:24
PROVIDERS: Emergency Medicine
DX: J44.1 Chronic obstructive pulmonary disease with (acute) exacerbation (principal); I25.2 Old myocardial infarction; Z88.0 Allergy status to penicillin; Z88.8 Allergy status to other drugs, medicaments and biological substances; Z79.899 Other long term (current) drug therapy; Z79.82 Long term (current) use of aspirin; Z95.0 Presence of cardiac pacemaker

== ENCOUNTER → 2019-07-01 | Outpatient (CLI) | payer MEDICARE | END | disposition home or self-care (01) | LOC: RESCLI 01:23 | DX: J45.20 Mild intermittent asthma, uncomplicated (principal); I25.10 Atherosclerotic heart disease of native coronary artery without angina pectoris; K22.11 Ulcer of esophagus with bleeding; E78.2 Mixed hyperlipidemia; J30.9 Allergic rhinitis, unspecified; I10 Essential (primary) hypertension; E83.51 Hypocalcemia; K92.2 Gastrointestinal hemorrhage, unspecified; M85.80 Other specified disorders of bone density and structure, unspecified site; J44.9 Chronic obstructive pulmonary disease, unspecified; F32.9 Major depressive disorder, single episode, unspecified; Z79.899 Other long term (current) drug therapy ==

== ENCOUNTER 2019-08-23 12:19 | Emergency (ER) | payer MEDICARE ==
[~2019-08-23] VITALS: Ht 154.9 cm; Wt 83.0 kg
[2019-08-23 12:22] VITALS: BP 155/98
[2019-08-23 13:12] LABS: BASO % 0.1 % (0.0-1.0); HEMATOCRIT 39.7 % (37.0-47.0); LYMPH # 1.9 10*3/uL (1.3-4.4); LYMPH % 19.4 % (27.0-41.0); MEAN CELL VOLUME 88.6 fl (81.0-99.0); MEAN CORPUSCULAR HGB CONC 32.7 g/dl (33.0-37.0); MEAN PLATELET VOLUME 9.1 fl (9.6-12.3); MONO # 0.9 10*3/uL (0.1-1.0); MONO % 8.7 % (3.0-9.0); NEUT % 71.3 % (47.0-73.0); PLATELET COUNT AUTOMATED 342 10*3/uL (130-400); RED BLOOD COUNT 4.48 10*6/uL (4.10-5.10); RED CELL DISTRI WIDTH 14.3 % (0-14.5); WHITE BLOOD COUNT 9.9 10*3/uL (4.8-10.8)
[2019-08-23 13:26] LABS: ALBUMIN 3.2 gm/dl (3.1-4.5); ALKALINE PHOSPHATASE 170 U/L (45-117); BUN 19 mg/dl (7-24); CHLORIDE 111 mmol/L (98-107); CREATININE 0.91 mg/dL (0.55-1.02); POTASSIUM 3.7 mmol/L (3.5-5.1); SGOT/AST 20 IU/L (3-35); SGPT/ALT 32 U/L (12-78); SODIUM 142 mmol/L (136-145); TOTAL PROTEIN 6.7 gm/dL (6.4-8.2)
[2019-08-23] MEDS ORDERED: ROBITUSSIN DM 105 ML PO (14:03)
[2019-08-23] MEDS ORDERED: PREDNISONE50 MG PO (14:03)
[2019-08-23] MEDS ORDERED: ZITHROMAX250 MG PO (14:03)
[2019-08-23] MEDS ORDERED: FLONASE ALLERG9.9 ML NAS (14:03)
== END 2019-08-23 14:04 | disposition home or self-care (01) ==
LOC: ED 12:19
PROVIDERS: Nurse Practitioner Family
DX: J20.9 Acute bronchitis, unspecified (principal); J44.1 Chronic obstructive pulmonary disease with (acute) exacerbation; I25.10 Atherosclerotic heart disease of native coronary artery without angina pectoris; I10 Essential (primary) hypertension; I25.2 Old myocardial infarction; E78.5 Hyperlipidemia, unspecified

== ENCOUNTER → 2019-09-26 | Outpatient (CLI) | payer MEDICARE ==
[~2019-09-26] MED LIST changes: +FLONASE ALLERG9.9 ML NAS; +ROBITUSSIN DM 105 ML PO
== END | disposition home or self-care (01) ==
LOC: RESCLI 00:38
DX: J45.20 Mild intermittent asthma, uncomplicated (principal); I25.10 Atherosclerotic heart disease of native coronary artery without angina pectoris; K22.11 Ulcer of esophagus with bleeding; I12.9 Hypertensive chronic kidney disease with stage 1 through stage 4 chronic kidney disease, or unspecified chronic kidney disease; N18.3 Chronic kidney disease, stage 3 (moderate); E78.2 Mixed hyperlipidemia; J30.9 Allergic rhinitis, unspecified; I10 Essential (primary) hypertension; E83.51 Hypocalcemia; Z79.899 Other long term (current) drug therapy; Z90.89 Acquired absence of other organs

== ENCOUNTER 2019-10-19 13:18 | Emergency (ER) | payer MEDICARE ==
[~2019-10-19] VITALS: Ht 154.9 cm; Wt 83.9 kg
[2019-10-19 13:32] VITALS: BP 152/101
[2019-10-19 14:17] LABS: BASO % 0.1 % (0.0-1.0); HEMATOCRIT 41.1 % (37.0-47.0); HEMOGLOBIN 13.2 g/dl (12.0-16.0); LYMPH # 2.5 10*3/uL (1.3-4.4); LYMPH % 30.3 % (27.0-41.0); MEAN CELL VOLUME 89.5 fl (81.0-99.0); MEAN CORPUSCULAR HGB 28.8 pg (27.0-31.0); MEAN CORPUSCULAR HGB CONC 32.1 g/dl (33.0-37.0); MONO # 0.6 10*3/uL (0.1-1.0); MONO % 7.1 % (3.0-9.0); NEUT # 5.1 10*3/uL (2.3-7.9); PLATELET COUNT AUTOMATED 328 10*3/uL (130-400); RED BLOOD COUNT 4.59 10*6/uL (4.10-5.10); RED CELL DISTRI WIDTH 13.4 % (0-14.5); WHITE BLOOD COUNT 8.2 10*3/uL (4.8-10.8)
[2019-10-19 14:34] LABS: ALBUMIN 3.5 gm/dl (3.1-4.5); ALKALINE PHOSPHATASE 140 U/L (45-117); BUN 23 mg/dl (7-24); CHLORIDE 112 mmol/L (98-107); CREATININE 0.98 mg/dL (0.55-1.02); POTASSIUM 4.2 mmol/L (3.5-5.1); SGOT/AST 14 IU/L (3-35); SGPT/ALT 24 U/L (12-78); SODIUM 143 mmol/L (136-145); TOTAL PROTEIN 6.7 gm/dL (6.4-8.2)
[2019-10-19 14:41] LABS: TROPONIN I < 0.015 ng/ml (<0.045)
[2019-10-19] MEDS ORDERED: CLINDAMYCIN HC300 MG PO (15:00)
[2019-10-19] MEDS ORDERED: PREDNISONE50 MG PO (15:00)
== END 2019-10-19 15:14 ==
LOC: ED 13:18
PROVIDERS: Family Medicine
DX: L08.9 Local infection of the skin and subcutaneous tissue, unspecified (principal); J44.1 Chronic obstructive pulmonary disease with (acute) exacerbation; E78.5 Hyperlipidemia, unspecified; I25.2 Old myocardial infarction; I25.10 Atherosclerotic heart disease of native coronary artery without angina pectoris; I12.9 Hypertensive chronic kidney disease with stage 1 through stage 4 chronic kidney disease, or unspecified chronic kidney disease; N18.3 Chronic kidney disease, stage 3 (moderate); E66.9 Obesity, unspecified; Z68.30 Body mass index [BMI] 30.0-30.9, adult; Z88.0 Allergy status to penicillin; Z88.8 Allergy status to other drugs, medicaments and biological substances; Z79.899 Other long term (current) drug therapy; Z79.2 Long term (current) use of antibiotics; Z79.82 Long term (current) use of aspirin; Z95.0 Presence of cardiac pacemaker

== ENCOUNTER 2019-10-23 18:42 | Inpatient (IN) | payer MEDICARE ==
[~2019-10-23] VITALS: Ht 154.9 cm; Wt 92.3 kg
[~2019-10-23 18:42] MED LIST changes: +CLINDAMYCIN HC300 MG PO
[2019-10-23 21:08] VITALS: BP 141/98
[2019-10-23 21:43] LABS: BASO % 0.1 % (0.0-1.0); HEMATOCRIT 40.8 % (37.0-47.0); HEMOGLOBIN 13.3 g/dl (12.0-16.0); LYMPH # 1.3 10*3/uL (1.3-4.4); LYMPH % 9.3 % (27.0-41.0); MEAN CELL VOLUME 89.5 fl (81.0-99.0); MEAN CORPUSCULAR HGB 29.2 pg (27.0-31.0); MEAN CORPUSCULAR HGB CONC 32.6 g/dl (33.0-37.0); MEAN PLATELET VOLUME 9.5 fl (9.6-12.3); MONO # 0.3 10*3/uL (0.1-1.0); MONO % 1.9 % (3.0-9.0); NEUT # 12.2 10*3/uL (2.3-7.9); NEUT % 87.2 % (47.0-73.0); PLATELET COUNT AUTOMATED 351 10*3/uL (130-400); RED BLOOD COUNT 4.56 10*6/uL (4.10-5.10); RED CELL DISTRI WIDTH 13.4 % (0-14.5)
[2019-10-23 22:00] LABS: ALBUMIN 3.7 gm/dl (3.1-4.5); CREATININE 1.41 mg/dL (0.55-1.02)
--- NOTE | 2019-10-24 01:26 | NUR ---
MEDICATIONS (IV ANTIBIOTICS NOT AVAILABLE, FAXED ORDER TO NURSING OFFICE TO HAVE GUARD SUPERVISOR OBTAIN MEDICATIONS)
--- NOTE | 2019-10-24 02:09 | NUR ---
PHOTO PROVIDED OF RIGHT HAND
--- NOTE | 2019-10-24 02:09 | NUR ---
PT MEDICATED FOR COMPLAINT OF HEADACHE WITH TYLENOL PO. WILL MONITOR FOR EFFECTIVENESSS
[2019-10-24 02:10] VITALS: BP 141/97
--- NOTE | 2019-10-24 03:22 | NUR ---
PATIENT IS SLEEPING AT THIS TIME WITH NO COMPLAINTS NOTED. NO DISTRESS IS NOTED AT THIS TIME EITHER.
[2019-10-24 04:00] VITALS: BP 152/78
--- NOTE | 2019-10-24 06:08 | NUR ---
PATIENT IS SLEEPING IN BED WITH NO CONCERNS NOTED AT THIS TIME.
[2019-10-24 06:26] LABS: BASO % 0.2 % (0.0-1.0); HEMATOCRIT 39.6 % (37.0-47.0); HEMOGLOBIN 12.6 g/dl (12.0-16.0); LYMPH # 3.8 10*3/uL (1.3-4.4); LYMPH % 25.8 % (27.0-41.0); MEAN CELL VOLUME 90.2 fl (81.0-99.0); MEAN CORPUSCULAR HGB 28.7 pg (27.0-31.0); MEAN CORPUSCULAR HGB CONC 31.8 g/dl (33.0-37.0); MEAN PLATELET VOLUME 9.4 fl (9.6-12.3); MONO # 1.1 10*3/uL (0.1-1.0); MONO % 7.6 % (3.0-9.0); NEUT # 9.5 10*3/uL (2.3-7.9); NEUT % 65.4 % (47.0-73.0); PLATELET COUNT AUTOMATED 334 10*3/uL (130-400); RED BLOOD COUNT 4.39 10*6/uL (4.10-5.10); RED CELL DISTRI WIDTH 13.3 % (0-14.5); WHITE BLOOD COUNT 14.6 10*3/uL (4.8-10.8)
[2019-10-24 06:35] LABS: CREATININE 1.11 mg/dL (0.55-1.02); PHOSPHOROUS 2.9 mg/dL (2.5-4.9)
--- NOTE | 2019-10-24 07:04 | NUR ---
REPORT RECIEVED FROM VERNON ESCOBAR RN.
--- NOTE | 2019-10-24 07:21 | NUR ---
PT IS SITTING UP IN BED PLAYING ON CELL PHONE AND WATCHING TELEVISION. NO SIGNS OF ACUTE DISTRESS NOTED. BED IS IN LOW POSITION. CALL DYER IS WITHIN REACH. WILL CONTINUE TO MONITOR.
[2019-10-24 07:23] VITALS: BP 160/90
[2019-10-24 09:15] VITALS: BP 152/78
--- NOTE | 2019-10-24 09:24 | NUR ---
The assessment has been completed. SUZI MENDIOLA Time: 914 A 64 year old FEMALE admitted to 5E under services of THERESA ADRIAN DO. Pt. arrived via ambulatory from ER. Chief complaint: FAILURE OF OP TREATMENT, CELLULITIS OF RIGHT HAND. SUZI MENDIOLA
--- NOTE | 2019-10-24 14:11 | NUR ---
PT RESTING IN BED. VOICES NO CONCERNS AT THIS TIME. NO S/S OF DISTRESS NOTED. RESPS EASY AND NON LABORED. CALL LIGHT WITHIN REACH.
--- NOTE | 2019-10-24 14:12 | NUR ---
WOUND CULTURE OBTAINED. UNABLE TO SEND DUE TO TUBE SYSTEM BEING DOWN.
--- NOTE | 2019-10-24 14:33 | NUR ---
Shift chart check completed.
[2019-10-24 16:00] VITALS: BP 117/106
[2019-10-24 20:00] VITALS: BP 155/93
[2019-10-25] VITALS: BP 170/95
[2019-10-25 08:00] VITALS: BP 147/109
[2019-10-25 08:06] LABS: BASO % 0.1 % (0.0-1.0); HEMATOCRIT 40.2 % (37.0-47.0); HEMOGLOBIN 12.5 g/dl (12.0-16.0); LYMPH # 3.7 10*3/uL (1.3-4.4); LYMPH % 31.3 % (27.0-41.0); MEAN CELL VOLUME 89.1 fl (81.0-99.0); MEAN CORPUSCULAR HGB 27.7 pg (27.0-31.0); MEAN CORPUSCULAR HGB CONC 31.1 g/dl (33.0-37.0); MEAN PLATELET VOLUME 9.8 fl (9.6-12.3); MONO # 1.1 10*3/uL (0.1-1.0); MONO % 9.8 % (3.0-9.0); NEUT # 6.7 10*3/uL (2.3-7.9); NEUT % 57.8 % (47.0-73.0); PLATELET COUNT AUTOMATED 309 10*3/uL (130-400); RED BLOOD COUNT 4.51 10*6/uL (4.10-5.10); RED CELL DISTRI WIDTH 13.3 % (0-14.5); WHITE BLOOD COUNT 11.7 10*3/uL (4.8-10.8)
[2019-10-25 08:21] LABS: CHLORIDE 113 mmol/L (98-107); POTASSIUM 3.7 mmol/L (3.5-5.1); SODIUM 145 mmol/L (136-145)
[2019-10-25 08:23] LABS: BUN 21 mg/dl (7-24)
--- NOTE | 2019-10-25 09:15 | NUR ---
PT MEDICATED WITH PRN NORCO FOR C/O RIGHT HAND PAIN AT WOUND SITE. DRESSING INTACT. PT RATES PAIN 04/23. WILL MONITOR AND REACCESS.
[2019-10-25 10:17] VITALS: BP 150/96
--- NOTE | 2019-10-25 10:32 | NUR ---
Annual Giving Manager in to talk to patient. Patient states lives at HOME with SON. There are FEW steps in the home. Physician: [facility]DEEP Pharmacy: [facility] health services: NONE Patient's level of ADLs: INDEPENDENT Patient has working utilities: YES DME: NONE Follow-up physician's appointment after d/c: WILL BE MADE BY HOSPITALIST NURSE DIRECTOR ON DISCHARGE Does patient want to access PORTAL?: NO Discharge plan PT LIVES AT HOME WITH SON LIVING WITH HER. DENIES SHE WILL HAVE ANY NEEDS ON DISCHARGE. STATES SHE WILL RETURN HOME WHEN MEDICALLY STABLE. WILL CONTINUE TO FOLLOW. STATES SHE WILL HAVE A RIDE HOME.. MAGGIE LAMAR
[2019-10-25 12:00] VITALS: BP 154/99
[2019-10-25 16:00] VITALS: BP 138/91
--- NOTE | 2019-10-25 16:42 | NUR ---
PT MEDICATED WITH PO NORCO PER PRN ORDER FOR C/O PAIN TO RIGHT HAND. DRESSING D/I. WILL MONITOR EFFECTIVENESS. FAMILY AT BEDSIDE.
--- NOTE | 2019-10-25 18:00 | NUR ---
PAIN MEDICATION EFFECTIVE PER PT. WILL CONTINUE TO MONITOR.
[2019-10-25 20:00] VITALS: BP 116/90
[2019-10-26] VITALS: BP 131/77
[2019-10-26 08:00] VITALS: BP 119/96
[2019-10-26 08:13] LABS: BASO % 0.1 % (0.0-1.0); HEMATOCRIT 38.4 % (37.0-47.0); HEMOGLOBIN 12.4 g/dl (12.0-16.0); LYMPH # 1.8 10*3/uL (1.3-4.4); LYMPH % 16.1 % (27.0-41.0); MEAN CELL VOLUME 88.5 fl (81.0-99.0); MEAN CORPUSCULAR HGB 28.6 pg (27.0-31.0); MEAN CORPUSCULAR HGB CONC 32.3 g/dl (33.0-37.0); MEAN PLATELET VOLUME 9.6 fl (9.6-12.3); MONO # 1.1 10*3/uL (0.1-1.0); MONO % 10.3 % (3.0-9.0); NEUT % 72.8 % (47.0-73.0); PLATELET COUNT AUTOMATED 273 10*3/uL (130-400); RED BLOOD COUNT 4.34 10*6/uL (4.10-5.10); RED CELL DISTRI WIDTH 13.2 % (0-14.5)
[2019-10-26] MEDS ORDERED: SEPTDS PO (08:52)
[2019-10-26] MEDS ORDERED: NORCO 5-325 TA1 EACH PO (08:52)
--- NOTE | 2019-10-26 08:53 | NUR ---
IN TO SEE PATIENT.
--- NOTE | 2019-10-26 12:27 | NUR ---
PT REFUSED DISCHARGE PHOTO.
--- NOTE | 2019-10-26 12:53 | NUR ---
Discharge instructions reviewed with patient/family. Patient receptive and verbalizes understanding. Follow-up care arranged. Written instructions given to patient/family. ERICA SHIELDS.
== END 2019-10-26 12:53 | disposition home or self-care (01) | DRG 602 ==
LOC: ED 18:42 → 5E 10-24 00:14 → EDHOLD 10-24 00:14 → 5E 10-24 09:04
PROVIDERS: Emergency Medicine; Family Medicine; Student in an Organized Health Care Education/Training Program; ADMIT Internal Medicine
DX: L03.113 Cellulitis of right upper limb (principal); N17.0 Acute kidney failure with tubular necrosis; E87.8 Other disorders of electrolyte and fluid balance, not elsewhere classified; R73.9 Hyperglycemia, unspecified; I10 Essential (primary) hypertension; E66.9 Obesity, unspecified; I25.10 Atherosclerotic heart disease of native coronary artery without angina pectoris; K76.0 Fatty (change of) liver, not elsewhere classified; J44.9 Chronic obstructive pulmonary disease, unspecified; D64.9 Anemia, unspecified; E83.41 Hypermagnesemia; B95.62 Methicillin resistant Staphylococcus aureus infection as the cause of diseases classified elsewhere; I12.9 Hypertensive chronic kidney disease with stage 1 through stage 4 chronic kidney disease, or unspecified chronic kidney disease; N18.3 Chronic kidney disease, stage 3 (moderate); Z95.0 Presence of cardiac pacemaker; Z68.38 Body mass index [BMI] 38.0-38.9, adult; Z88.0 Allergy status to penicillin; Z88.8 Allergy status to other drugs, medicaments and biological substances; I25.2 Old myocardial infarction; Z95.5 Presence of coronary angioplasty implant and graft; Z98.49 Cataract extraction status, unspecified eye; Z98.51 Tubal ligation status; Z83.3 Family history of diabetes mellitus; Z82.49 Family history of ischemic heart disease and other diseases of the circulatory system; Z79.82 Long term (current) use of aspirin; Z79.899 Other long term (current) drug therapy

== ENCOUNTER 2019-11-10 20:43 | Emergency (ER) | payer MEDICARE ==
[~2019-11-10] VITALS: Ht 154.9 cm; Wt 82.6 kg
[~2019-11-10 20:43] MED LIST changes: +NORCO 5-325 TA1 EACH PO; +SEPTDS PO
[2019-11-10 21:11] LABS: BASO % 0.1 % (0.0-1.0); HEMATOCRIT 40.8 % (37.0-47.0); HEMOGLOBIN 12.9 g/dl (12.0-16.0); LYMPH # 1.4 10*3/uL (1.3-4.4); LYMPH % 11.7 % (27.0-41.0); MEAN CELL VOLUME 90.1 fl (81.0-99.0); MEAN CORPUSCULAR HGB 28.5 pg (27.0-31.0); MEAN CORPUSCULAR HGB CONC 31.6 g/dl (33.0-37.0); MEAN PLATELET VOLUME 9.5 fl (9.6-12.3); MONO # 0.6 10*3/uL (0.1-1.0); NEUT % 82.8 % (47.0-73.0); PLATELET COUNT AUTOMATED 378 10*3/uL (130-400); RED BLOOD COUNT 4.53 10*6/uL (4.10-5.10); RED CELL DISTRI WIDTH 13.5 % (0-14.5); WHITE BLOOD COUNT 12.1 10*3/uL (4.8-10.8)
[2019-11-10 21:21] LABS: ACT PARTIAL THROMBO TIME 23.6 SECONDS (20.0-32.1); INTERNATIONAL NORM RATIO 0.9 (2.0-3.5)
[2019-11-10 21:29] LABS: ALBUMIN 3.6 gm/dl (3.1-4.5); ALKALINE PHOSPHATASE 320 U/L (45-117); BUN 22 mg/dl (7-24); CHLORIDE 110 mmol/L (98-107); CREATININE 1.25 mg/dL (0.55-1.02); POTASSIUM 3.8 mmol/L (3.5-5.1); SGOT/AST 70 IU/L (3-35); SGPT/ALT 71 U/L (12-78); SODIUM 143 mmol/L (136-145); TOTAL PROTEIN 7.3 gm/dL (6.4-8.2)
[2019-11-10 21:30] LABS: TROPONIN I < 0.015 ng/ml (<0.045)
[2019-11-10 23:57] VITALS: BP 122/77
== END 2019-11-11 01:02 | disposition home or self-care (01) ==
LOC: ED 20:43
PROVIDERS: Emergency Medicine
DX: R07.89 Other chest pain (principal); I25.10 Atherosclerotic heart disease of native coronary artery without angina pectoris; J44.9 Chronic obstructive pulmonary disease, unspecified; I25.2 Old myocardial infarction; I12.9 Hypertensive chronic kidney disease with stage 1 through stage 4 chronic kidney disease, or unspecified chronic kidney disease; N18.3 Chronic kidney disease, stage 3 (moderate); E66.9 Obesity, unspecified; Z98.61 Coronary angioplasty status; Z95.0 Presence of cardiac pacemaker; Z68.30 Body mass index [BMI] 30.0-30.9, adult; Z88.0 Allergy status to penicillin; Z79.899 Other long term (current) drug therapy; Z79.2 Long term (current) use of antibiotics; Z79.82 Long term (current) use of aspirin

== ENCOUNTER 2020-03-17 10:31 | Inpatient (IN) | payer MEDICARE ==
[~2020-03-17] VITALS: Ht 154.9 cm; Wt 80.3 kg
[2020-03-17 10:31] VITALS: BP 127/88
[2020-03-17 11:08] LABS: HEMATOCRIT 41.1 % (37.0-47.0); MEAN CELL VOLUME 85.3 fl (81.0-99.0); MEAN CORPUSCULAR HGB 27.2 pg (27.0-31.0); MEAN CORPUSCULAR HGB CONC 31.9 g/dl (33.0-37.0); MEAN PLATELET VOLUME 9.2 fl (9.6-12.3); PLATELET COUNT AUTOMATED 316 10*3/uL (130-400); RED BLOOD COUNT 4.82 10*6/uL (4.10-5.10); RED CELL DISTRI WIDTH 15.1 % (0-14.5); WHITE BLOOD COUNT 20.5 10*3/uL (4.8-10.8)
[2020-03-17 11:18] LABS: ACT PARTIAL THROMBO TIME 24.8 SECONDS (20.0-32.1)
[2020-03-17 11:21] VITALS: BP 110/83
[2020-03-17 11:26] LABS: ALBUMIN 3.2 gm/dl (3.1-4.5); ALKALINE PHOSPHATASE 246 U/L (45-117); BUN 15 mg/dl (7-24); CHLORIDE 111 mmol/L (98-107); LIPASE 82 U/L (73-393); SGOT/AST 19 IU/L (3-35); SGPT/ALT 33 U/L (12-78); SODIUM 140 mmol/L (136-145); TOTAL PROTEIN 7.3 gm/dL (6.4-8.2)
[2020-03-17 11:29] LABS: PLATELET SUFFICIENCY NORMAL (NORMAL); TOTAL CELLS COUNTED 100 #CELLS; TROPONIN I < 0.015 ng/ml (<0.045)
[2020-03-17 11:59] VITALS: BP 112/76
--- NOTE | 2020-03-17 11:59 | NUR ---
RESTING IN NO DISTRESS AT THIS TIME. CALL LIGHT IN REACH.
[2020-03-17 12:45] VITALS: BP 100/72
[2020-03-17 13:10] VITALS: BP 100/67
--- NOTE | 2020-03-17 13:10 | NUR ---
A 64 YEAR OLD FEMALE PATIENT , admitted to , under the services of BENJAMIN Shane DO with a diagnosis of COPD EXACERBATION, POSIIBLE COVID-19 INFECTION Chief complaint is INCREASED SOB AND WHEEZING AT HOME DESPITE HAVING TRIED MUCINEX. Patient arrived via CART WITH RN from ER. Monitor applied. Initial assessment completed. Vital signs taken and recorded. BENJAMIN SHANE DO notified of admission to the unit. Orders received. See assessment for past medical history, medications and allergies. Patient and/or family oriented to unit. [facility] [id number] visitation policy reviewed. Clothing/patient valuable form completed. NERY HDZ
--- NOTE | 2020-03-17 13:42 | NUR ---
CONSULT CALLED TO DR DE LEON, ORDER FOR ABG. NO OTHER ORDERS AT THIS TIME
[2020-03-17 14:20] LABS: ABG BASE EXCESS -1.8 mmol/L (-2.0-2.0); ARTERIAL BLOOD GAS PH 7.458 (7.35-7.45)
--- NOTE | 2020-03-17 19:36 | NUR ---
TYLENOL GIVEN PER ORDER FOR C/O HEADACHE SHE RATED "7". SEE MAR. ALERT AND ORIENTED X3. SKIN WARM PINK AND DRY. RESP. EASY REG NO C/O SOB. RA. LUNG SOUNDS I&E WHEEZING. ABD SOFT NORMAL ACTIVE BOWEL SOUNDS X 4 QUAD. ANKLE EDEMA THAT PATIENT STATES HAS "UNCHANGED AND BEEN LIKE THIS FOR YEARS"
[2020-03-17 20:00] VITALS: BP 123/84
--- NOTE | 2020-03-17 20:35 | NUR ---
TYLENOL EFFECTIVE FOR HEADACHE PAIN PER PT. NO ACUTE DISTRESS NOTED.
[2020-03-18] VITALS: BP 122/87
--- NOTE | 2020-03-18 | NUR ---
ALERT ORIENTED X3.NO C/O DISCOMFORT VOICED SEE DOCUMENT INTERVENTIONS.
--- NOTE | 2020-03-18 01:37 | NUR ---
24 HR chart check completed.
[2020-03-18 05:30] VITALS: BP 115/80
--- NOTE | 2020-03-18 05:30 | NUR ---
LAB DRAW OBTAINED AND SENT FOR PTT,PT,PHOS,MAG,CMP,CBC. PT. TOLERATED WELL. NO ACUTE DISTRESS NOTED AT THIS TIME.
[2020-03-18 06:08] LABS: BASO % 0.1 % (0.0-1.0); HEMATOCRIT 39.6 % (37.0-47.0); LYMPH # 2.5 10*3/uL (1.3-4.4); LYMPH % 17.6 % (27.0-41.0); MEAN CELL VOLUME 87.4 fl (81.0-99.0); MEAN CORPUSCULAR HGB 27.4 pg (27.0-31.0); MEAN CORPUSCULAR HGB CONC 31.3 g/dl (33.0-37.0); MEAN PLATELET VOLUME 9.5 fl (9.6-12.3); MONO # 1.3 10*3/uL (0.1-1.0); MONO % 9.3 % (3.0-9.0); NEUT # 10.2 10*3/uL (2.3-7.9); NEUT % 72.4 % (47.0-73.0); PLATELET COUNT AUTOMATED 283 10*3/uL (130-400); RED BLOOD COUNT 4.53 10*6/uL (4.10-5.10); RED CELL DISTRI WIDTH 15.2 % (0-14.5); WHITE BLOOD COUNT 14.1 10*3/uL (4.8-10.8)
[2020-03-18 06:26] LABS: ACT PARTIAL THROMBO TIME 25.4 SECONDS (20.0-32.1); ALBUMIN 2.8 gm/dl (3.1-4.5); INTERNATIONAL NORM RATIO 1.1 (2.0-3.5); POTASSIUM 3.8 mmol/L (3.5-5.1)
[2020-03-18 06:31] LABS: CREATININE 1.22 mg/dL (0.55-1.02); TOTAL PROTEIN 6.5 gm/dL (6.4-8.2)
[2020-03-18 08:00] VITALS: BP 113/65
--- NOTE | 2020-03-18 08:00 | NUR ---
PT SITTING UP ON SIDE OF THE BED TALKING ON THE PHONE AT THIS TIME. NO S/S OF DISTRESS NOTED. RESPS ARE EASY AND NONLABORED. PT IS ON ROOM AIR, PULSE OX 98%. NO OTHER C/O VOICED. BED IS LOW, CALL LIGHT WITHIN REACH. WILL CONTINUE TO MONITOR.
--- NOTE | 2020-03-18 08:18 | NUR ---
24 HR CHART CHECK COMPLETE.
--- NOTE | 2020-03-18 09:00 | NUR ---
Slotter Operator in to talk to patient. Patient states lives at home with son. There are 10 steps in the home. Physician: resident clinic [facility]acy: [facility] health services: none Patient's level of ADLs: INDEPENDENT Patient has working utilities: all working DME: nebulizer Follow-up physician's appointment after d/c: will be made by hospitalist nurse director upon discharge Does patient want to access PORTAL?: no Discharge plan discussed with patient, she states she lives at home with son, she states she is independent in adls and ambulation, she has a nebulizer, no home oxygen, she stated she will return home when medically stble, discussed with her VNA and educated her on the services they provide, she declined, statd she doesn't feel she needs any home servics at this time, patient states family will transport her home when she is discharge, case mangaement will follow . TISH KUMAR
--- NOTE | 2020-03-18 18:30 | NUR ---
PT SITTING UP AT THE SIDE OF THE BED EATING DINNER AT THIS TIME. NO S/S OF DISTRESS NOTED. RESPS ARE EASY AND NONLABORED. PULSE OX REMAINS AT 98% ON ROOM AIR. BED IS LOW, CALL LIGHT WITHIN REACH. WILL CONTINUE TO MONITOR.
--- NOTE | 2020-03-18 19:30 | NUR ---
IN TO ASSESS PATIENT. PATIENT PLEASANT AND COOPERATIVE WITH ASSESSMENT. ALERT AND ORIENTED. PATIENT DENIES ANY COMPLAINTS AND STATES SHE FEELS REALLY GOOD. PATIENT ON ROOM AIR. DENIES ANY SHORTNESS OF BREATH. VSS. CALL LIGHT WITHIN REACH, WILL MONITOR
[2020-03-18 20:00] VITALS: BP 135/86
[2020-03-19] VITALS: BP 123/87
--- NOTE | 2020-03-19 | NUR ---
VITALS OBTAINED AT THIS TIME. PATIENT RESTING IN BED. NO COMPLAINTS. ON ROOM AIR WITHOUT SHORTNESS OF BREATH. PATIENT DENIES ANY COMPLAINTS AND HAS NO NEEDS AT THIS TIME. CALL LIGHT WITHIN REACH, WILL MONITOR
--- NOTE | 2020-03-19 00:20 | NUR ---
24 HR chart check completed.
--- NOTE | 2020-03-19 02:00 | NUR ---
PATIENT SLEEPING, NO DISTRES NOTED. BREATHING IS EASY AND REGULAR MAINTAINED ON ROOM AIR. CALL LIGHT WITHIN REACH, WILL MONITOR
--- NOTE | 2020-03-19 06:15 | NUR ---
BLOOD DRAWN AT THIS TIME. PATIENT HAS NO COMPLAINTS. DENIES SOB. CALL LIGHT WITHIN REACH, WILL MONITOR
[2020-03-19 06:51] LABS: ALBUMIN 2.9 gm/dl (3.1-4.5); CREATININE 1.17 mg/dL (0.55-1.02); POTASSIUM 3.9 mmol/L (3.5-5.1); TOTAL PROTEIN 6.8 gm/dL (6.4-8.2)
[2020-03-19 07:27] LABS: HEMATOCRIT 39.1 % (37.0-47.0); MEAN CELL VOLUME 87.5 fl (81.0-99.0); MEAN CORPUSCULAR HGB 27.5 pg (27.0-31.0); MEAN CORPUSCULAR HGB CONC 31.5 g/dl (33.0-37.0); MEAN PLATELET VOLUME 9.8 fl (9.6-12.3); PLATELET COUNT AUTOMATED 324 10*3/uL (130-400); RED BLOOD COUNT 4.47 10*6/uL (4.10-5.10); RED CELL DISTRI WIDTH 14.8 % (0-14.5); WHITE BLOOD COUNT 13.5 10*3/uL (4.8-10.8)
[2020-03-19 07:35] LABS: PLATELET SUFFICIENCY NORMAL (NORMAL); TOTAL CELLS COUNTED 100 #CELLS
[2020-03-19 08:36] VITALS: BP 130/84
--- NOTE | 2020-03-19 09:00 | NUR ---
case management talks with patient, she states she will return home when medically stable, again discussed VNA and she declines any home services at this time
--- NOTE | 2020-03-19 10:59 | NUR ---
DR SCHULTZ CALLED AND MADE AWARE OF NEGATIVE COVID TEST.
[2020-03-19] MEDS ORDERED: DOXYCYCLINE100 M3 PO (11:37)
[2020-03-19] MEDS ORDERED: PREDNISONE10 MG PO (11:37)
--- NOTE | 2020-03-19 12:28 | NUR ---
PATIENT DISCHARGED VIA WHEELCHAIR TO LOBBY WITH BELONGINGS.
== END 2020-03-19 12:30 | disposition home or self-care (01) | DRG 871 ==
LOC: ED 10:31 → EDHOLD 12:09 → 4E 12:09
PROVIDERS: Emergency Medicine; Internal Medicine; Internal Medicine Critical Care Medicine; ADMIT Family Medicine
DX: A41.9 Sepsis, unspecified organism (principal); J18.9 Pneumonia, unspecified organism; N17.0 Acute kidney failure with tubular necrosis; J44.1 Chronic obstructive pulmonary disease with (acute) exacerbation; E44.0 Moderate protein-calorie malnutrition; J44.0 Chronic obstructive pulmonary disease with (acute) lower respiratory infection; J45.51 Severe persistent asthma with (acute) exacerbation; E87.8 Other disorders of electrolyte and fluid balance, not elsewhere classified; R65.20 Severe sepsis without septic shock; E66.9 Obesity, unspecified; I25.10 Atherosclerotic heart disease of native coronary artery without angina pectoris; I77.810 Thoracic aortic ectasia; K76.0 Fatty (change of) liver, not elsewhere classified; I12.9 Hypertensive chronic kidney disease with stage 1 through stage 4 chronic kidney disease, or unspecified chronic kidney disease; N18.3 Chronic kidney disease, stage 3 (moderate); E55.9 Vitamin D deficiency, unspecified; J20.9 Acute bronchitis, unspecified; Z20.828 Contact with and (suspected) exposure to other viral communicable diseases; Z95.0 Presence of cardiac pacemaker; Z68.33 Body mass index [BMI] 33.0-33.9, adult; Z88.0 Allergy status to penicillin; Z88.8 Allergy status to other drugs, medicaments and biological substances; Z79.899 Other long term (current) drug therapy; Z79.82 Long term (current) use of aspirin

== ENCOUNTER → 2020-03-26 | Outpatient (CLI) | payer MEDICARE | END | disposition home or self-care (01) | LOC: RESCLI 05:13 | DX: J06.9 Acute upper respiratory infection, unspecified (principal); I21.11 ST elevation (STEMI) myocardial infarction involving right coronary artery; E66.01 Morbid (severe) obesity due to excess calories; E78.2 Mixed hyperlipidemia; E83.51 Hypocalcemia; G47.01 Insomnia due to medical condition; G89.29 Other chronic pain; Z00.00 Encounter for general adult medical examination without abnormal findings; M54.5 Low back pain; E66.9 Obesity, unspecified; J44.1 Chronic obstructive pulmonary disease with (acute) exacerbation; B97.89 Other viral agents as the cause of diseases classified elsewhere; K21.9 Gastro-esophageal reflux disease without esophagitis; J44.9 Chronic obstructive pulmonary disease, unspecified; J45.30 Mild persistent asthma, uncomplicated; J45.31 Mild persistent asthma with (acute) exacerbation; K59.00 Constipation, unspecified; E78.5 Hyperlipidemia, unspecified; I25.10 Atherosclerotic heart disease of native coronary artery without angina pectoris; K57.30 Diverticulosis of large intestine without perforation or abscess without bleeding; F32.9 Major depressive disorder, single episode, unspecified; I71.2 Thoracic aortic aneurysm, without rupture; J45.20 Mild intermittent asthma, uncomplicated; J30.9 Allergic rhinitis, unspecified; K22.11 Ulcer of esophagus with bleeding; Z13.820 Encounter for screening for osteoporosis; Z95.0 Presence of cardiac pacemaker; Z95.5 Presence of coronary angioplasty implant and graft; Z68.35 Body mass index [BMI] 35.0-35.9, adult; Z79.899 Other long term (current) drug therapy ==

== ENCOUNTER → 2020-06-04 | Outpatient (CLI) | payer MEDICARE ==
[2020-06-04 09:17] LABS: BASO % 0.1 % (0.0-1.0); HEMATOCRIT 42.5 % (37.0-47.0); LYMPH # 2.3 10*3/uL (1.3-4.4); LYMPH % 31.3 % (27.0-41.0); MEAN CELL VOLUME 86.9 fl (81.0-99.0); MEAN CORPUSCULAR HGB 27.8 pg (27.0-31.0); MEAN PLATELET VOLUME 9.4 fl (9.6-12.3); MONO # 0.7 10*3/uL (0.1-1.0); MONO % 10.2 % (3.0-9.0); NEUT # 4.2 10*3/uL (2.3-7.9); NEUT % 58.3 % (47.0-73.0); PLATELET COUNT AUTOMATED 301 10*3/uL (130-400); RED BLOOD COUNT 4.89 10*6/uL (4.10-5.10); RED CELL DISTRI WIDTH 14.6 % (0-14.5); WHITE BLOOD COUNT 7.3 10*3/uL (4.8-10.8)
[2020-06-04 09:44] LABS: ALBUMIN 3.5 gm/dl (3.1-4.5); BUN 21 mg/dl (7-24); CHLORIDE 111 mmol/L (98-107); CHOLESTEROL 148 mg/dL (<200); CREATININE 1.05 mg/dL (0.55-1.02); POTASSIUM 3.8 mmol/L (3.5-5.1); SGOT/AST 60 IU/L (3-35); SGPT/ALT 73 U/L (12-78); SODIUM 141 mmol/L (136-145); TRIGLYCERIDES 154 mg/dl (<150); VLDL CHOLESTEROL 31 mg/dL (6-40)
[2020-06-04 09:52] LABS: ALKALINE PHOSPHATASE 332 U/L (45-117); HDL CHOLESTEROL 50 mg/dl (40-60); LDL CHOLESTEROL 67 mg/dL (9-159)
[2020-06-04 10:12] LABS: VITAMIN D, 25-HYDROXY 30.1 ng/mL (30-100)
== END | disposition home or self-care (01) ==
LOC: LAB 08:46
PROVIDERS: Student in an Organized Health Care Education/Training Program
DX: Z00.00 Encounter for general adult medical examination without abnormal findings (principal); E78.5 Hyperlipidemia, unspecified; I10 Essential (primary) hypertension; E55.9 Vitamin D deficiency, unspecified; Z79.899 Other long term (current) drug therapy

== ENCOUNTER → 2020-06-23 | Outpatient (CLI) | payer MEDICARE | END | disposition home or self-care (01) | LOC: MAMMO 13:26 | PROVIDERS: ATTEND Internal Medicine Nephrology | DX: Z12.31 Encounter for screening mammogram for malignant neoplasm of breast (principal) ==

== ENCOUNTER 2020-12-17 10:43 | Inpatient (IN) | payer OTHER ==
[~2020-12-17] VITALS: Ht 154.9 cm; Wt 78.5 kg
[2020-12-17 10:51] VITALS: BP 144/90
[2020-12-17 11:11] LABS: BASO % 0.1 % (0.0-1.0); HEMATOCRIT 44.8 % (37.0-47.0); LYMPH # 3.1 10*3/uL (1.3-4.4); LYMPH % 37.2 % (27.0-41.0); MEAN CELL VOLUME 90.7 fl (81.0-99.0); MEAN CORPUSCULAR HGB 29.1 pg (27.0-31.0); MEAN CORPUSCULAR HGB CONC 32.1 g/dl (33.0-37.0); MEAN PLATELET VOLUME 9.7 fl (9.6-12.3); MONO # 0.6 10*3/uL (0.1-1.0); MONO % 7.3 % (3.0-9.0); NEUT # 4.6 10*3/uL (2.3-7.9); PLATELET COUNT AUTOMATED 293 10*3/uL (130-400); RED BLOOD COUNT 4.94 10*6/uL (4.10-5.10); RED CELL DISTRI WIDTH 13.5 % (0-14.5); WHITE BLOOD COUNT 8.4 10*3/uL (4.8-10.8)
[2020-12-17 11:34] LABS: ALBUMIN 3.4 gm/dl (3.1-4.5); ALKALINE PHOSPHATASE 244 U/L (45-117); BUN 22 mg/dl (7-24); CHLORIDE 110 mmol/L (98-107); CREATININE 0.99 mg/dL (0.55-1.02); POTASSIUM 4.3 mmol/L (3.5-5.1); SGOT/AST 51 IU/L (3-35); SGPT/ALT 55 U/L (12-78); SODIUM 144 mmol/L (136-145); TOTAL PROTEIN 6.9 gm/dL (6.4-8.2)
[2020-12-17 11:40] LABS: TROPONIN I < 0.015 ng/ml (<0.045)
[2020-12-17 11:46] LABS: ABG BASE EXCESS -1.7 mmol/L (-2.0-2.0); ARTERIAL BLOOD GAS PH 7.431 (7.35-7.45); ARTERIAL BLOOD GAS PO2 77.7 (80-90)
[2020-12-17 11:59] LABS: ACT PARTIAL THROMBO TIME 24.5 SECONDS (20.0-32.1)
[2020-12-17] MEDS ORDERED: SINGULAIR10 M1 PO (12:11)
[2020-12-17 12:16] VITALS: BP 142/84
[2020-12-17 12:30] VITALS: BP 129/76
[2020-12-17 16:00] VITALS: BP 130/72
[2020-12-17 20:00] VITALS: BP 126/78
[2020-12-18] VITALS: BP 133/83
[2020-12-18 06:46] LABS: BASO % 0.1 % (0.0-1.0); HEMATOCRIT 43.2 % (37.0-47.0); LYMPH # 1.2 10*3/uL (1.3-4.4); LYMPH % 10.3 % (27.0-41.0); MEAN CELL VOLUME 91.9 fl (81.0-99.0); MEAN CORPUSCULAR HGB 28.7 pg (27.0-31.0); MEAN CORPUSCULAR HGB CONC 31.3 g/dl (33.0-37.0); MEAN PLATELET VOLUME 9.5 fl (9.6-12.3); MONO # 0.1 10*3/uL (0.1-1.0); MONO % 0.8 % (3.0-9.0); NEUT # 10.4 10*3/uL (2.3-7.9); NEUT % 88.1 % (47.0-73.0); PLATELET COUNT AUTOMATED 300 10*3/uL (130-400); RED CELL DISTRI WIDTH 13.4 % (0-14.5); WHITE BLOOD COUNT 11.8 10*3/uL (4.8-10.8)
[2020-12-18 07:20] LABS: ALBUMIN 3.1 gm/dl (3.1-4.5); ALKALINE PHOSPHATASE 211 U/L (45-117); BUN 27 mg/dl (7-24); CHLORIDE 113 mmol/L (98-107); CHOLESTEROL 155 mg/dL (<200); CREATININE 1.02 mg/dL (0.55-1.02); FREE T4 1.04 ng/dl (0.76-1.46); HDL CHOLESTEROL 69 mg/dl (40-60); LDL CHOLESTEROL 73 mg/dL (9-159); POTASSIUM 4.8 mmol/L (3.5-5.1); SGOT/AST 18 IU/L (3-35); SGPT/ALT 44 U/L (12-78); SODIUM 141 mmol/L (136-145); TOTAL PROTEIN 6.9 gm/dL (6.4-8.2); TRIGLYCERIDES 65 mg/dl (<150); VLDL CHOLESTEROL 13 mg/dL (6-40)
[2020-12-18 07:24] LABS: THYROID STIM HORMONE (HS) 0.115 uIU/ml (0.358-4.75)
[2020-12-18 07:40] LABS: VITAMIN D, 25-HYDROXY 29.2 ng/mL (30-100)
[2020-12-18 08:00] VITALS: BP 132/91
[2020-12-18 12:00] VITALS: BP 113/67
[2020-12-18 16:00] VITALS: BP 116/64
[2020-12-18 20:00] VITALS: BP 127/74
[2020-12-19] VITALS: BP 128/68
[2020-12-19 06:22] LABS: BASO % 0.1 % (0.0-1.0); HEMATOCRIT 41.8 % (37.0-47.0); LYMPH # 1.7 10*3/uL (1.3-4.4); LYMPH % 8.2 % (27.0-41.0); MEAN CELL VOLUME 91.9 fl (81.0-99.0); MEAN CORPUSCULAR HGB 28.8 pg (27.0-31.0); MEAN CORPUSCULAR HGB CONC 31.3 g/dl (33.0-37.0); MEAN PLATELET VOLUME 9.6 fl (9.6-12.3); MONO # 0.5 10*3/uL (0.1-1.0); MONO % 2.3 % (3.0-9.0); NEUT # 18.2 10*3/uL (2.3-7.9); NEUT % 88.6 % (47.0-73.0); PLATELET COUNT AUTOMATED 312 10*3/uL (130-400); RED BLOOD COUNT 4.55 10*6/uL (4.10-5.10); RED CELL DISTRI WIDTH 13.7 % (0-14.5); WHITE BLOOD COUNT 20.6 10*3/uL (4.8-10.8)
[2020-12-19 06:47] LABS: BUN 30 mg/dl (7-24); CHLORIDE 116 mmol/L (98-107); CREATININE 0.97 mg/dL (0.55-1.02); POTASSIUM 4.6 mmol/L (3.5-5.1); SODIUM 143 mmol/L (136-145)
[2020-12-19 08:00] VITALS: BP 133/76
[2020-12-19] MEDS ORDERED: DOXYCYCLINE100 M3 PO (10:24)
[2020-12-19] MEDS ORDERED: PREDNISONE10 MG PO (10:24)
== END 2020-12-19 11:45 | disposition home or self-care (01) | DRG 871 ==
LOC: ED 10:43 → 5E 12:00 → EDHOLD 12:00 → 5E 12:11
PROVIDERS: Emergency Medicine; Family Medicine; Registered Nurse; ADMIT Emergency Medicine; ATTEND Emergency Medicine
DX: A41.9 Sepsis, unspecified organism (principal); J96.01 Acute respiratory failure with hypoxia; J44.1 Chronic obstructive pulmonary disease with (acute) exacerbation; E44.0 Moderate protein-calorie malnutrition; J45.901 Unspecified asthma with (acute) exacerbation; R65.20 Severe sepsis without septic shock; I25.10 Atherosclerotic heart disease of native coronary artery without angina pectoris; N18.31 Chronic kidney disease, stage 3a; I77.810 Thoracic aortic ectasia; E87.8 Other disorders of electrolyte and fluid balance, not elsewhere classified; R73.9 Hyperglycemia, unspecified; I12.9 Hypertensive chronic kidney disease with stage 1 through stage 4 chronic kidney disease, or unspecified chronic kidney disease; E66.9 Obesity, unspecified; E55.9 Vitamin D deficiency, unspecified; Z96.1 Presence of intraocular lens; I25.2 Old myocardial infarction; Z95.0 Presence of cardiac pacemaker; Z98.51 Tubal ligation status; Z98.42 Cataract extraction status, left eye; Z98.41 Cataract extraction status, right eye; Z88.0 Allergy status to penicillin; Z88.8 Allergy status to other drugs, medicaments and biological substances; Z82.49 Family history of ischemic heart disease and other diseases of the circulatory system; Z79.51 Long term (current) use of inhaled steroids; Z79.82 Long term (current) use of aspirin; Z79.899 Other long term (current) drug therapy; Z68.32 Body mass index [BMI] 32.0-32.9, adult; J20.9 Acute bronchitis, unspecified

== ENCOUNTER → 2020-12-30 | Outpatient (CLI) | payer OTHER ==
[~2020-12-30] MED LIST changes: +SINGULAIR10 M1 PO
== END | disposition home or self-care (01) ==
LOC: RESCLI 02:48
PROVIDERS: ATTEND Internal Medicine
DX: I25.10 Atherosclerotic heart disease of native coronary artery without angina pectoris (principal); J44.9 Chronic obstructive pulmonary disease, unspecified; E83.51 Hypocalcemia; K22.11 Ulcer of esophagus with bleeding; I12.9 Hypertensive chronic kidney disease with stage 1 through stage 4 chronic kidney disease, or unspecified chronic kidney disease; N18.30 Chronic kidney disease, stage 3 unspecified; J30.9 Allergic rhinitis, unspecified; E78.2 Mixed hyperlipidemia; M19.90 Unspecified osteoarthritis, unspecified site; Z12.4 Encounter for screening for malignant neoplasm of cervix; Z12.11 Encounter for screening for malignant neoplasm of colon; Z79.82 Long term (current) use of aspirin; Z79.899 Other long term (current) drug therapy; Z88.0 Allergy status to penicillin; Z88.8 Allergy status to other drugs, medicaments and biological substances

== ENCOUNTER 2021-05-28 11:49 | Inpatient (IN) | payer OTHER ==
[~2021-05-28] VITALS: Ht 154.9 cm; Wt 77.3 kg
[2021-05-28 12:07] LABS: BASO % 0.1 % (0.0-1.0); HEMATOCRIT 43.2 % (37.0-47.0); LYMPH # 1.5 10*3/uL (1.3-4.4); LYMPH % 12.5 % (27.0-41.0); MEAN CELL VOLUME 88.5 fl (81.0-99.0); MEAN CORPUSCULAR HGB 28.7 pg (27.0-31.0); MEAN CORPUSCULAR HGB CONC 32.4 g/dl (33.0-37.0); MEAN PLATELET VOLUME 9.5 fl (9.6-12.3); MONO # 0.8 10*3/uL (0.1-1.0); MONO % 6.4 % (3.0-9.0); NEUT # 9.4 10*3/uL (2.3-7.9); NEUT % 80.5 % (47.0-73.0); PLATELET COUNT AUTOMATED 228 10*3/uL (130-400); RED BLOOD COUNT 4.88 10*6/uL (4.10-5.10); RED CELL DISTRI WIDTH 14.1 % (0-14.5); WHITE BLOOD COUNT 11.6 10*3/uL (4.8-10.8)
[2021-05-28 12:40] LABS: ALBUMIN 3.2 gm/dl (3.1-4.5); BUN 48 mg/dl (7-24); CHLORIDE 113 mmol/L (98-107); CREATININE 1.31 mg/dL (0.55-1.02); POTASSIUM 3.3 mmol/L (3.5-5.1); SGOT/AST 37 IU/L (3-35); SGPT/ALT 47 U/L (12-78); SODIUM 143 mmol/L (136-145); TOTAL PROTEIN 6.8 gm/dL (6.4-8.2)
[2021-05-28 12:43] LABS: ALKALINE PHOSPHATASE 141 U/L (45-117); TROPONIN I < 0.015 ng/ml (<0.045)
[2021-05-28 13:56] VITALS: BP 108/66
[2021-05-28 14:58] VITALS: BP 106/62
[2021-05-28 17:37] VITALS: BP 111/73
[2021-05-28 19:17] VITALS: BP 126/84
[2021-05-28 22:23] VITALS: BP 114/72
[2021-05-29 05:20] LABS: ALBUMIN 3.1 gm/dl (3.1-4.5); ALKALINE PHOSPHATASE 129 U/L (45-117); BUN 41 mg/dl (7-24); CHLORIDE 115 mmol/L (98-107); CREATININE 1.07 mg/dL (0.55-1.02); POTASSIUM 3.7 mmol/L (3.5-5.1); SGOT/AST 22 IU/L (3-35); SGPT/ALT 42 U/L (12-78); SODIUM 145 mmol/L (136-145); TOTAL PROTEIN 6.6 gm/dL (6.4-8.2)
[2021-05-29 06:10] LABS: HEMATOCRIT 41.4 % (37.0-47.0); LYMPH # 0.7 10*3/uL (1.3-4.4); LYMPH % 15.3 % (27.0-41.0); MEAN CELL VOLUME 89.8 fl (81.0-99.0); MEAN CORPUSCULAR HGB 28.4 pg (27.0-31.0); MEAN CORPUSCULAR HGB CONC 31.6 g/dl (33.0-37.0); MEAN PLATELET VOLUME 10.2 fl (9.6-12.3); MONO # 0.4 10*3/uL (0.1-1.0); MONO % 8.8 % (3.0-9.0); NEUT # 3.4 10*3/uL (2.3-7.9); NEUT % 75.2 % (47.0-73.0); PLATELET COUNT AUTOMATED 203 10*3/uL (130-400); RED BLOOD COUNT 4.61 10*6/uL (4.10-5.10); RED CELL DISTRI WIDTH 14.1 % (0-14.5); WHITE BLOOD COUNT 4.6 10*3/uL (4.8-10.8)
[2021-05-29 06:23] LABS: ACT PARTIAL THROMBO TIME 24.1 SECONDS (20.0-32.1)
[2021-05-29 08:32] VITALS: BP 129/75
[2021-05-29] MEDS ORDERED: GOOD NEIGHBOR L10 MG PO (09:56)
[2021-05-29 13:48] VITALS: BP 131/87
[2021-05-29 18:50] VITALS: BP 130/85
[2021-05-29 22:00] VITALS: BP 133/77
[2021-05-30 06:25] LABS: BASO % 0.1 % (0.0-1.0); HEMATOCRIT 42.8 % (37.0-47.0); LYMPH # 0.9 10*3/uL (1.3-4.4); LYMPH % 10.8 % (27.0-41.0); MEAN CELL VOLUME 90.7 fl (81.0-99.0); MEAN CORPUSCULAR HGB 28.6 pg (27.0-31.0); MEAN CORPUSCULAR HGB CONC 31.5 g/dl (33.0-37.0); MEAN PLATELET VOLUME 9.9 fl (9.6-12.3); MONO # 0.4 10*3/uL (0.1-1.0); MONO % 4.8 % (3.0-9.0); NEUT # 7.2 10*3/uL (2.3-7.9); NEUT % 83.5 % (47.0-73.0); PLATELET COUNT AUTOMATED 195 10*3/uL (130-400); RED BLOOD COUNT 4.72 10*6/uL (4.10-5.10); RED CELL DISTRI WIDTH 14.1 % (0-14.5); WHITE BLOOD COUNT 8.6 10*3/uL (4.8-10.8)
[2021-05-30 06:47] LABS: ALBUMIN 2.9 gm/dl (3.1-4.5); ALKALINE PHOSPHATASE 121 U/L (45-117); BUN 37 mg/dl (7-24); CHLORIDE 115 mmol/L (98-107); POTASSIUM 4.6 mmol/L (3.5-5.1); SGOT/AST 19 IU/L (3-35); SGPT/ALT 40 U/L (12-78); SODIUM 144 mmol/L (136-145); TOTAL PROTEIN 6.6 gm/dL (6.4-8.2)
[2021-05-30 08:00] VITALS: BP 150/91
[2021-05-30 13:30] VITALS: BP 138/80
[2021-05-30 16:00] VITALS: BP 125/89
[2021-05-30 20:00] VITALS: BP 135/90
[2021-05-31] VITALS: BP 130/85
[2021-05-31 06:37] LABS: ALBUMIN 2.7 gm/dl (3.1-4.5); BUN 34 mg/dl (7-24); CHLORIDE 115 mmol/L (98-107); CREATININE 0.91 mg/dL (0.55-1.02); SGOT/AST 25 IU/L (3-35); SGPT/ALT 40 U/L (12-78); SODIUM 145 mmol/L (136-145); TOTAL PROTEIN 6.3 gm/dL (6.4-8.2)
[2021-05-31 06:39] LABS: ALKALINE PHOSPHATASE 110 U/L (45-117); LDH 391 U/L (84-246)
[2021-05-31 07:28] LABS: BASO % 0.2 % (0.0-1.0); HEMATOCRIT 43.8 % (37.0-47.0); LYMPH % 8.8 % (27.0-41.0); MEAN CELL VOLUME 91.4 fl (81.0-99.0); MEAN CORPUSCULAR HGB 28.6 pg (27.0-31.0); MEAN CORPUSCULAR HGB CONC 31.3 g/dl (33.0-37.0); MEAN PLATELET VOLUME 10.1 fl (9.6-12.3); MONO # 0.5 10*3/uL (0.1-1.0); MONO % 4.2 % (3.0-9.0); NEUT # 9.7 10*3/uL (2.3-7.9); NEUT % 85.6 % (47.0-73.0); RED BLOOD COUNT 4.79 10*6/uL (4.10-5.10); WHITE BLOOD COUNT 11.3 10*3/uL (4.8-10.8)
[2021-05-31 07:34] LABS: PLATELET COUNT AUTOMATED 256 10*3/uL (130-400)
[2021-05-31 08:00] VITALS: BP 138/91
[2021-05-31 12:00] VITALS: BP 124/83
[2021-05-31 16:00] VITALS: BP 125/80
[2021-05-31 20:00] VITALS: BP 138/93
[2021-06-01] VITALS: BP 138/79
[2021-06-01 07:10] LABS: BASO % 0.2 % (0.0-1.0); HEMATOCRIT 42.8 % (37.0-47.0); LYMPH # 1.3 10*3/uL (1.3-4.4); LYMPH % 11.5 % (27.0-41.0); MEAN CELL VOLUME 91.6 fl (81.0-99.0); MEAN CORPUSCULAR HGB 28.5 pg (27.0-31.0); MEAN CORPUSCULAR HGB CONC 31.1 g/dl (33.0-37.0); MEAN PLATELET VOLUME 9.8 fl (9.6-12.3); MONO # 0.7 10*3/uL (0.1-1.0); MONO % 6.3 % (3.0-9.0); NEUT # 9.2 10*3/uL (2.3-7.9); NEUT % 80.8 % (47.0-73.0); PLATELET COUNT AUTOMATED 238 10*3/uL (130-400); RED BLOOD COUNT 4.67 10*6/uL (4.10-5.10); RED CELL DISTRI WIDTH 13.9 % (0-14.5); WHITE BLOOD COUNT 11.4 10*3/uL (4.8-10.8)
[2021-06-01 07:43] LABS: ALBUMIN 2.6 gm/dl (3.1-4.5); BUN 36 mg/dl (7-24); CHLORIDE 116 mmol/L (98-107); POTASSIUM 4.4 mmol/L (3.5-5.1); SGOT/AST 14 IU/L (3-35); SGPT/ALT 40 U/L (12-78); SODIUM 146 mmol/L (136-145)
[2021-06-01 07:47] LABS: ALKALINE PHOSPHATASE 101 U/L (45-117); CREATININE 0.81 mg/dL (0.55-1.02); LDH 255 U/L (84-246); TOTAL PROTEIN 6.1 gm/dL (6.4-8.2)
[2021-06-01 08:00] VITALS: BP 155/73
[2021-06-01 12:00] VITALS: BP 144/88
[2021-06-01 16:00] VITALS: BP 123/93
[2021-06-01 20:00] VITALS: BP 160/89
[2021-06-02] VITALS: BP 137/83
[2021-06-02 06:24] LABS: BASO % 0.2 % (0.0-1.0); HEMATOCRIT 44.6 % (37.0-47.0); LYMPH # 1.1 10*3/uL (1.3-4.4); LYMPH % 9.1 % (27.0-41.0); MEAN CORPUSCULAR HGB 28.4 pg (27.0-31.0); MEAN CORPUSCULAR HGB CONC 31.2 g/dl (33.0-37.0); MONO # 0.7 10*3/uL (0.1-1.0); MONO % 5.9 % (3.0-9.0); NEUT # 10.3 10*3/uL (2.3-7.9); NEUT % 83.3 % (47.0-73.0); PLATELET COUNT AUTOMATED 261 10*3/uL (130-400); RED CELL DISTRI WIDTH 13.7 % (0-14.5); WHITE BLOOD COUNT 12.3 10*3/uL (4.8-10.8)
[2021-06-02 06:34] LABS: ALBUMIN 2.6 gm/dl (3.1-4.5); BUN 33 mg/dl (7-24); CHLORIDE 113 mmol/L (98-107); CREATININE 0.83 mg/dL (0.55-1.02); LDH 259 U/L (84-246); POTASSIUM 4.1 mmol/L (3.5-5.1); SGOT/AST 12 IU/L (3-35); SGPT/ALT 41 U/L (12-78); SODIUM 144 mmol/L (136-145)
[2021-06-02 06:37] LABS: ALKALINE PHOSPHATASE 98 U/L (45-117)
[2021-06-02 08:00] VITALS: BP 117/76
[2021-06-02 12:00] VITALS: BP 124/75
[2021-06-02 17:28] VITALS: BP 143/86
[2021-06-02 20:00] VITALS: BP 123/80
[2021-06-03] VITALS: BP 139/79
[2021-06-03 06:42] LABS: BASO % 0.2 % (0.0-1.0); HEMATOCRIT 41.5 % (37.0-47.0); LYMPH # 1.2 10*3/uL (1.3-4.4); MEAN CELL VOLUME 90.6 fl (81.0-99.0); MEAN CORPUSCULAR HGB 28.8 pg (27.0-31.0); MEAN CORPUSCULAR HGB CONC 31.8 g/dl (33.0-37.0); MEAN PLATELET VOLUME 10.1 fl (9.6-12.3); MONO # 0.7 10*3/uL (0.1-1.0); MONO % 5.4 % (3.0-9.0); NEUT # 10.6 10*3/uL (2.3-7.9); NEUT % 83.3 % (47.0-73.0); PLATELET COUNT AUTOMATED 235 10*3/uL (130-400); RED BLOOD COUNT 4.58 10*6/uL (4.10-5.10); RED CELL DISTRI WIDTH 13.5 % (0-14.5); WHITE BLOOD COUNT 12.8 10*3/uL (4.8-10.8)
[2021-06-03 06:57] LABS: BUN 34 mg/dl (7-24); CHLORIDE 111 mmol/L (98-107); CREATININE 0.85 mg/dL (0.55-1.02); POTASSIUM 4.8 mmol/L (3.5-5.1); SODIUM 142 mmol/L (136-145)
[2021-06-03 08:00] VITALS: BP 123/90
[2021-06-03 12:00] VITALS: BP 114/76
[2021-06-03 16:00] VITALS: BP 118/69
[2021-06-03 20:00] VITALS: BP 132/94
[2021-06-04] VITALS: BP 132/82
[2021-06-04 08:00] VITALS: BP 136/86
[2021-06-04] MEDS ORDERED: PREDNISONE10 MG PO (10:05)
[2021-06-04] MEDS ORDERED: FLONASE ALLERG9.9 ML NAS (10:05)
== END 2021-06-04 12:04 | disposition home or self-care (01) | DRG 177 ==
LOC: ED 11:49 → EDHOLD 14:03 → 4E 14:03 → EDHOLD 05-29 19:00 → 4E 05-29 20:22
PROVIDERS: Internal Medicine; Student in an Organized Health Care Education/Training Program; ADMIT Emergency Medicine; ATTEND Emergency Medicine
PROC: 5A0935A Assistance with Respiratory Ventilation, Less than 24 Consecutive Hours, High Flow/Velocity Cannula (ICD-10-PCS; 2021-05-29)
PROC: 5A0945A Assistance with Respiratory Ventilation, 24-96 Consecutive Hours, High Flow/Velocity Cannula (ICD-10-PCS; 2021-05-30)
PROC: XW033E5 Introduction of Remdesivir Anti-infective into Peripheral Vein, Percutaneous Approach, New Technology Group 5 (ICD-10-PCS; principal; 2021-05-31)
DX: U07.1 COVID-19 (principal); J96.01 Acute respiratory failure with hypoxia; N17.0 Acute kidney failure with tubular necrosis; E43 Unspecified severe protein-calorie malnutrition; J44.1 Chronic obstructive pulmonary disease with (acute) exacerbation; J45.20 Mild intermittent asthma, uncomplicated; N18.30 Chronic kidney disease, stage 3 unspecified; E66.9 Obesity, unspecified; E87.6 Hypokalemia; R73.9 Hyperglycemia, unspecified; E83.41 Hypermagnesemia; I12.9 Hypertensive chronic kidney disease with stage 1 through stage 4 chronic kidney disease, or unspecified chronic kidney disease; R74.01 Elevation of levels of liver transaminase levels; D72.829 Elevated white blood cell count, unspecified; E87.8 Other disorders of electrolyte and fluid balance, not elsewhere classified; Z88.0 Allergy status to penicillin; Z88.8 Allergy status to other drugs, medicaments and biological substances; Z95.5 Presence of coronary angioplasty implant and graft; I25.2 Old myocardial infarction; Z95.0 Presence of cardiac pacemaker; Z98.51 Tubal ligation status; Z82.49 Family history of ischemic heart disease and other diseases of the circulatory system; Z68.31 Body mass index [BMI] 31.0-31.9, adult

== ENCOUNTER → 2021-06-21 | Outpatient (CLI) | payer OTHER ==
[~2021-06-21] MED LIST changes: +GOOD NEIGHBOR L10 MG PO
== END | disposition home or self-care (01) ==
LOC: RESCLI 00:32 → LAB 00:32 → RESCLI 07:25
PROVIDERS: ATTEND Emergency Medicine
DX: K44.9 Diaphragmatic hernia without obstruction or gangrene (principal); M47.814 Spondylosis without myelopathy or radiculopathy, thoracic region; I25.10 Atherosclerotic heart disease of native coronary artery without angina pectoris; J45.20 Mild intermittent asthma, uncomplicated; J44.9 Chronic obstructive pulmonary disease, unspecified; E83.51 Hypocalcemia; K22.11 Ulcer of esophagus with bleeding; J30.9 Allergic rhinitis, unspecified; Z12.11 Encounter for screening for malignant neoplasm of colon; I12.9 Hypertensive chronic kidney disease with stage 1 through stage 4 chronic kidney disease, or unspecified chronic kidney disease; N18.30 Chronic kidney disease, stage 3 unspecified; Z79.899 Other long term (current) drug therapy; Z86.16 Personal history of COVID-19

== ENCOUNTER → 2021-08-16 | Outpatient (CLI) | payer OTHER | END | disposition home or self-care (01) | LOC: CARD 12:46 | PROVIDERS: ATTEND Internal Medicine Cardiovascular Disease | DX: Z01.810 Encounter for preprocedural cardiovascular examination (principal); I07.1 Rheumatic tricuspid insufficiency ==

== ENCOUNTER → 2021-09-23 | Outpatient (CLI) | payer OTHER | END | disposition home or self-care (01) | LOC: RESCLI 00:36 | PROVIDERS: ATTEND Family Medicine | DX: U07.1 COVID-19 (principal); I12.9 Hypertensive chronic kidney disease with stage 1 through stage 4 chronic kidney disease, or unspecified chronic kidney disease; N18.30 Chronic kidney disease, stage 3 unspecified; I25.10 Atherosclerotic heart disease of native coronary artery without angina pectoris; J45.20 Mild intermittent asthma, uncomplicated; J44.9 Chronic obstructive pulmonary disease, unspecified; E83.51 Hypocalcemia; F32.9 Major depressive disorder, single episode, unspecified; K22.11 Ulcer of esophagus with bleeding; J30.9 Allergic rhinitis, unspecified; Z12.11 Encounter for screening for malignant neoplasm of colon; Z12.31 Encounter for screening mammogram for malignant neoplasm of breast; Z79.82 Long term (current) use of aspirin; M19.90 Unspecified osteoarthritis, unspecified site; Z88.0 Allergy status to penicillin; Z88.8 Allergy status to other drugs, medicaments and biological substances; Z79.899 Other long term (current) drug therapy ==

== ENCOUNTER → 2022-03-24 | Outpatient (CLI) | payer OTHER | END | disposition home or self-care (01) | LOC: RESCLI 00:33 | PROVIDERS: ATTEND Internal Medicine | DX: J44.9 Chronic obstructive pulmonary disease, unspecified (principal); I13.10 Hypertensive heart and chronic kidney disease without heart failure, with stage 1 through stage 4 chronic kidney disease, or unspecified chronic kidney disease; N18.30 Chronic kidney disease, stage 3 unspecified; I25.10 Atherosclerotic heart disease of native coronary artery without angina pectoris; E83.51 Hypocalcemia; J30.9 Allergic rhinitis, unspecified; K22.11 Ulcer of esophagus with bleeding; E78.5 Hyperlipidemia, unspecified; M19.90 Unspecified osteoarthritis, unspecified site; F41.9 Anxiety disorder, unspecified; F32.A Depression, unspecified; Z13.820 Encounter for screening for osteoporosis; Z12.39 Encounter for other screening for malignant neoplasm of breast; Z79.899 Other long term (current) drug therapy; Z79.82 Long term (current) use of aspirin; Z88.0 Allergy status to penicillin; Z88.8 Allergy status to other drugs, medicaments and biological substances; Z79.02 Long term (current) use of antithrombotics/antiplatelets ==

== ENCOUNTER 2022-04-02 20:07 | Emergency (ER) | payer OTHER ==
[2022-04-02 20:15] VITALS: BP 144/89
[2022-04-02 20:31] LABS: BASO # 0.1 10*3/uL (0.0-0.1); BASO % 0.7 % (0.0-1.0); EOS % 0.1 % (1.0-4.0); HEMATOCRIT 42.5 % (37.0-47.0); LYMPH # 1.9 10*3/uL (1.3-4.4); LYMPH % 15.5 % (27.0-41.0); MEAN CELL VOLUME 93.4 fl (81.0-99.0); MEAN CORPUSCULAR HGB 29.7 pg (27.0-31.0); MEAN CORPUSCULAR HGB CONC 31.8 g/dl (33.0-37.0); MEAN PLATELET VOLUME 9.4 fl (9.6-12.3); MONO # 0.7 10*3/uL (0.1-1.0); MONO % 6.1 % (3.0-9.0); NEUT # 9.5 10*3/uL (2.3-7.9); NEUT % 77.1 % (47.0-73.0); PLATELET COUNT AUTOMATED 296 10*3/uL (130-400); RED BLOOD COUNT 4.55 10*6/uL (4.10-5.10); RED CELL DISTRI WIDTH 13.9 % (0-14.5); WHITE BLOOD COUNT 12.2 10*3/uL (4.8-10.8)
[2022-04-02 20:45] LABS: ALKALINE PHOSPHATASE 262 U/L (45-117); BUN 22 mg/dl (7-24); CHLORIDE 112 mmol/L (98-107); CREATININE 1.08 mg/dL (0.55-1.02); POTASSIUM 3.7 mmol/L (3.5-5.1); SGOT/AST 43 IU/L (3-35); SGPT/ALT 41 U/L (12-78); SODIUM 145 mmol/L (136-145); TOTAL PROTEIN 7.5 gm/dL (6.4-8.2)
== END 2022-04-02 22:43 | disposition home or self-care (01) ==
LOC: ED 20:07
PROVIDERS: Internal Medicine
DX: I12.9 Hypertensive chronic kidney disease with stage 1 through stage 4 chronic kidney disease, or unspecified chronic kidney disease (principal); N18.30 Chronic kidney disease, stage 3 unspecified; D72.829 Elevated white blood cell count, unspecified; I25.10 Atherosclerotic heart disease of native coronary artery without angina pectoris; I25.2 Old myocardial infarction; E78.5 Hyperlipidemia, unspecified; J44.9 Chronic obstructive pulmonary disease, unspecified; Z79.899 Other long term (current) drug therapy; Z79.82 Long term (current) use of aspirin

== ENCOUNTER → 2022-04-11 | Outpatient (CLI) | payer OTHER | END | disposition home or self-care (01) | LOC: CARD 02:47 | PROVIDERS: ATTEND Internal Medicine Cardiovascular Disease | DX: I20.0 Unstable angina (principal) ==

== ENCOUNTER 2022-06-05 18:44 | Emergency (ER) | payer OTHER ==
[~2022-06-05] VITALS: Wt 72.6 kg
[2022-06-05 18:47] VITALS: BP 135/90
[2022-06-05 20:38] LABS: BILIRUBIN Negative (Negative); BLOOD Negative (Negative); CLARITY Clear (Clear); COLOR Yellow (Yellow); GLUCOSE Negative (Negative); KETONE Negative (Negative); LEUKO ESTERASE Trace (Negative); NITRITE Negative (Negative); PH 7.5 (4.5-8.0)
[2022-06-05 20:52] LABS: BACTERIA 1+
== END 2022-06-05 22:55 | disposition home or self-care (01) ==
LOC: ED 18:44
PROVIDERS: Emergency Medicine
DX: R50.9 Fever, unspecified (principal); Z20.822 Contact with and (suspected) exposure to COVID-19; J44.9 Chronic obstructive pulmonary disease, unspecified; I25.10 Atherosclerotic heart disease of native coronary artery without angina pectoris; I25.2 Old myocardial infarction; E66.9 Obesity, unspecified; I12.9 Hypertensive chronic kidney disease with stage 1 through stage 4 chronic kidney disease, or unspecified chronic kidney disease; N18.30 Chronic kidney disease, stage 3 unspecified; Z88.0 Allergy status to penicillin; Z88.8 Allergy status to other drugs, medicaments and biological substances; Z79.899 Other long term (current) drug therapy; Z79.82 Long term (current) use of aspirin; Z98.51 Tubal ligation status; Z90.89 Acquired absence of other organs; Z98.890 Other specified postprocedural states

== ENCOUNTER → 2023-02-02 | Outpatient (CLI) | payer OTHER ==
[~2023-02-02] MED LIST changes: +LEVOFLOXACIN750 M2 PO; +MUCINEX1200 M1 PO
== END | disposition home or self-care (01) ==
LOC: RESCLI 13:08
PROVIDERS: ATTEND Internal Medicine
DX: I12.9 Hypertensive chronic kidney disease with stage 1 through stage 4 chronic kidney disease, or unspecified chronic kidney disease (principal); N18.30 Chronic kidney disease, stage 3 unspecified; I25.10 Atherosclerotic heart disease of native coronary artery without angina pectoris; E83.51 Hypocalcemia; E78.5 Hyperlipidemia, unspecified; R73.09 Other abnormal glucose; Z88.5 Allergy status to narcotic agent; Z88.8 Allergy status to other drugs, medicaments and biological substances; Z98.890 Other specified postprocedural states; Z82.49 Family history of ischemic heart disease and other diseases of the circulatory system; Z79.899 Other long term (current) drug therapy

== ENCOUNTER 2023-03-17 08:04 | Emergency (ER) | payer OTHER ==
[~2023-03-17] VITALS: Wt 80.3 kg
[~2023-03-17 08:04] MED LIST changes: +MUCUS RELIEF600 MG PO
[2023-03-17 08:54] VITALS: BP 114/82
[2023-03-17 09:10] LABS: BASO % 0.1 % (0.0-1.0); HEMATOCRIT 40.7 % (37.0-47.0); LYMPH # 3.2 10*3/uL (1.3-4.4); LYMPH % 23.5 % (27.0-41.0); MEAN CELL VOLUME 93.3 fl (81.0-99.0); MEAN CORPUSCULAR HGB 28.9 pg (27.0-31.0); MEAN PLATELET VOLUME 9.2 fl (9.6-12.3); MONO # 1.1 10*3/uL (0.1-1.0); MONO % 7.9 % (3.0-9.0); NEUT # 9.2 10*3/uL (2.3-7.9); NEUT % 67.8 % (47.0-73.0); PLATELET COUNT AUTOMATED 240 10*3/uL (130-400); RED BLOOD COUNT 4.36 10*6/uL (4.10-5.10); RED CELL DISTRI WIDTH 15.8 % (0-14.5); WHITE BLOOD COUNT 13.6 10*3/uL (4.8-10.8)
[2023-03-17 09:31] LABS: POTASSIUM 3.6 mmol/L (3.4-5.1)
== END 2023-03-17 10:26 | disposition home or self-care (01) ==
LOC: ED 08:04
PROVIDERS: Internal Medicine
DX: J44.1 Chronic obstructive pulmonary disease with (acute) exacerbation (principal); I25.10 Atherosclerotic heart disease of native coronary artery without angina pectoris; I10 Essential (primary) hypertension; I25.2 Old myocardial infarction; E78.5 Hyperlipidemia, unspecified; Z88.0 Allergy status to penicillin; Z88.8 Allergy status to other drugs, medicaments and biological substances; Z98.51 Tubal ligation status; Z98.890 Other specified postprocedural states; Z90.89 Acquired absence of other organs; Z95.5 Presence of coronary angioplasty implant and graft

== ENCOUNTER 2023-03-23 12:16 | Emergency (ER) | payer OTHER ==
[~2023-03-23] VITALS: Ht 154.9 cm; Wt 77.1 kg
[2023-03-23 12:31] VITALS: BP 115/93
== END 2023-03-23 14:52 | disposition home or self-care (01) ==
LOC: ED 12:16
DX: S93.402A Sprain of unspecified ligament of left ankle, initial encounter (principal); S90.32XA Contusion of left foot, initial encounter; I25.10 Atherosclerotic heart disease of native coronary artery without angina pectoris; I10 Essential (primary) hypertension; I25.2 Old myocardial infarction; J44.9 Chronic obstructive pulmonary disease, unspecified; E78.5 Hyperlipidemia, unspecified; Z88.0 Allergy status to penicillin; Z88.8 Allergy status to other drugs, medicaments and biological substances; Z98.890 Other specified postprocedural states; Z90.89 Acquired absence of other organs; Z98.51 Tubal ligation status; Z95.5 Presence of coronary angioplasty implant and graft; W22.03XA Walked into furniture, initial encounter; Y93.89 Activity, other specified; Y92.89 Other specified places as the place of occurrence of the external cause; Y99.8 Other external cause status

== ENCOUNTER 2023-03-27 11:42 | Emergency (ER) | payer OTHER ==
[~2023-03-27] VITALS: Wt 77.1 kg
[2023-03-27 11:50] VITALS: BP 140/91
== END 2023-03-27 13:24 | disposition home or self-care (01) ==
LOC: ED 11:42
DX: S80.12XA Contusion of left lower leg, initial encounter (principal); I25.2 Old myocardial infarction; Z88.0 Allergy status to penicillin; Z88.8 Allergy status to other drugs, medicaments and biological substances; Z79.82 Long term (current) use of aspirin; Z79.899 Other long term (current) drug therapy; Z95.0 Presence of cardiac pacemaker; Z95.5 Presence of coronary angioplasty implant and graft; Z90.89 Acquired absence of other organs; Z98.51 Tubal ligation status; W19.XXXA Unspecified fall, initial encounter; Y93.89 Activity, other specified; Y92.89 Other specified places as the place of occurrence of the external cause; Y99.8 Other external cause status

== ENCOUNTER → 2023-03-29 | Outpatient (CLI) | payer OTHER ==
[2023-03-29 11:11] LABS: BASO # 0.1 10*3/uL (0.0-0.1); BASO % 0.4 % (0.0-1.0); EOS # 0.8 10*3/uL (0.0-0.4); EOS % 5.2 % (1.0-4.0); HEMATOCRIT 41.1 % (37.0-47.0); LYMPH # 2.5 10*3/uL (1.3-4.4); LYMPH % 16.6 % (27.0-41.0); MEAN CELL VOLUME 90.3 fl (81.0-99.0); MEAN CORPUSCULAR HGB CONC 32.1 g/dl (33.0-37.0); MEAN PLATELET VOLUME 9.5 fl (9.6-12.3); MONO % 6.8 % (3.0-9.0); NEUT # 10.7 10*3/uL (2.3-7.9); NEUT % 70.4 % (47.0-73.0); PLATELET COUNT AUTOMATED 284 10*3/uL (130-400); RED BLOOD COUNT 4.55 10*6/uL (4.10-5.10); RED CELL DISTRI WIDTH 15.9 % (0-14.5); WHITE BLOOD COUNT 15.1 10*3/uL (4.8-10.8)
== END | disposition home or self-care (01) ==
LOC: RESCLI 01:32
PROVIDERS: Student in an Organized Health Care Education/Training Program; ATTEND Family Medicine
DX: I12.9 Hypertensive chronic kidney disease with stage 1 through stage 4 chronic kidney disease, or unspecified chronic kidney disease (principal); N18.30 Chronic kidney disease, stage 3 unspecified; I25.10 Atherosclerotic heart disease of native coronary artery without angina pectoris; E78.2 Mixed hyperlipidemia; J45.20 Mild intermittent asthma, uncomplicated; Z12.31 Encounter for screening mammogram for malignant neoplasm of breast; T14.8XXA Other injury of unspecified body region, initial encounter; Z82.49 Family history of ischemic heart disease and other diseases of the circulatory system; Z98.890 Other specified postprocedural states; Z79.899 Other long term (current) drug therapy; Z88.0 Allergy status to penicillin; Z88.8 Allergy status to other drugs, medicaments and biological substances

== ENCOUNTER 2023-04-05 13:17 | Emergency (ER) | payer OTHER ==
[~2023-04-05] VITALS: Wt 77.1 kg
[2023-04-05 13:41] VITALS: BP 140/91
[2023-04-05 14:37] LABS: BASO % 0.4 % (0.0-1.0); EOS # 0.4 10*3/uL (0.0-0.4); EOS % 4.6 % (1.0-4.0); HEMATOCRIT 38.4 % (37.0-47.0); LYMPH # 1.2 10*3/uL (1.3-4.4); LYMPH % 13.5 % (27.0-41.0); MEAN CORPUSCULAR HGB 28.4 pg (27.0-31.0); MEAN CORPUSCULAR HGB CONC 31.3 g/dl (33.0-37.0); MEAN PLATELET VOLUME 9.2 fl (9.6-12.3); MONO # 0.8 10*3/uL (0.1-1.0); MONO % 8.6 % (3.0-9.0); NEUT # 6.6 10*3/uL (2.3-7.9); NEUT % 72.5 % (47.0-73.0); PLATELET COUNT AUTOMATED 236 10*3/uL (130-400); RED BLOOD COUNT 4.22 10*6/uL (4.10-5.10); RED CELL DISTRI WIDTH 15.2 % (0-14.5); WHITE BLOOD COUNT 9.1 10*3/uL (4.8-10.8)
[2023-04-05 14:50] LABS: ACT PARTIAL THROMBO TIME 25.1 SECONDS (20.0-32.1)
[2023-04-05 14:59] LABS: ALKALINE PHOSPHATASE 125 U/L (46-116); BUN 16 mg/dl (9-23); CHLORIDE 110 mmol/L (98-107); POTASSIUM 3.8 mmol/L (3.4-5.1); SGPT/ALT 26 U/L (10-49); TOTAL PROTEIN 6.1 gm/dL (6.0-8.0)
[2023-04-05] MEDS ORDERED: VIBRA-TAB100 MG PO (15:23)
[2023-04-06] MEDS ORDERED: AVPAK AZITHROM250 M1 PO (11:21)
[2023-04-06] MEDS ORDERED: PREDNISONE20 M1 PO (11:21)
== END 2023-04-05 15:30 | disposition home or self-care (01) ==
LOC: ED 13:17
PROVIDERS: Internal Medicine
DX: L03.116 Cellulitis of left lower limb (principal); Z95.5 Presence of coronary angioplasty implant and graft; I25.10 Atherosclerotic heart disease of native coronary artery without angina pectoris; I10 Essential (primary) hypertension; J44.9 Chronic obstructive pulmonary disease, unspecified; I25.2 Old myocardial infarction; E78.5 Hyperlipidemia, unspecified; Z88.0 Allergy status to penicillin; Z88.8 Allergy status to other drugs, medicaments and biological substances; Z98.51 Tubal ligation status; Z90.89 Acquired absence of other organs; Z98.890 Other specified postprocedural states

== ENCOUNTER 2023-04-06 10:16 | Emergency (ER) | payer OTHER ==
[~2023-04-06] VITALS: Ht 154.9 cm; Wt 77.1 kg
[~2023-04-06 10:16] MED LIST changes: +VIBRA-TAB100 MG PO
[2023-04-06 10:18] VITALS: BP 146/91
[2023-04-06 10:39] LABS: BASO # 0.1 10*3/uL (0.0-0.1); BASO % 0.6 % (0.0-1.0); EOS # 0.7 10*3/uL (0.0-0.4); EOS % 8.6 % (1.0-4.0); HEMATOCRIT 39.2 % (37.0-47.0); LYMPH # 2.5 10*3/uL (1.3-4.4); LYMPH % 29.7 % (27.0-41.0); MEAN CELL VOLUME 91.4 fl (81.0-99.0); MEAN CORPUSCULAR HGB 28.9 pg (27.0-31.0); MEAN CORPUSCULAR HGB CONC 31.6 g/dl (33.0-37.0); MEAN PLATELET VOLUME 8.8 fl (9.6-12.3); MONO # 0.7 10*3/uL (0.1-1.0); MONO % 8.5 % (3.0-9.0); NEUT # 4.4 10*3/uL (2.3-7.9); NEUT % 52.4 % (47.0-73.0); PLATELET COUNT AUTOMATED 246 10*3/uL (130-400); RED BLOOD COUNT 4.29 10*6/uL (4.10-5.10); RED CELL DISTRI WIDTH 15.4 % (0-14.5); WHITE BLOOD COUNT 8.4 10*3/uL (4.8-10.8)
[2023-04-06 11:03] LABS: ALKALINE PHOSPHATASE 126 U/L (46-116); BUN 15 mg/dl (9-23); CHLORIDE 110 mmol/L (98-107); SGPT/ALT 25 U/L (10-49); TOTAL PROTEIN 6.2 gm/dL (6.0-8.0)
[2023-04-06] MEDS ORDERED: AVPAK AZITHROM250 M1 PO (11:21)
[2023-04-06] MEDS ORDERED: PREDNISONE20 M1 PO (11:21)
== END 2023-04-06 12:13 | disposition home or self-care (01) ==
LOC: ED 10:16
PROVIDERS: Emergency Medicine
DX: J44.1 Chronic obstructive pulmonary disease with (acute) exacerbation (principal); E78.5 Hyperlipidemia, unspecified; I12.9 Hypertensive chronic kidney disease with stage 1 through stage 4 chronic kidney disease, or unspecified chronic kidney disease; N18.9 Chronic kidney disease, unspecified; I25.2 Old myocardial infarction; Z88.0 Allergy status to penicillin; Z88.8 Allergy status to other drugs, medicaments and biological substances; Z79.899 Other long term (current) drug therapy; Z79.2 Long term (current) use of antibiotics; Z79.82 Long term (current) use of aspirin; Z95.0 Presence of cardiac pacemaker; Z90.89 Acquired absence of other organs; Z98.51 Tubal ligation status

== ENCOUNTER 2023-04-13 17:10 | Emergency (ER) | payer OTHER ==
[~2023-04-13] VITALS: Ht 154.9 cm; Wt 77.1 kg
[~2023-04-13 17:10] MED LIST changes: +AVPAK AZITHROM250 M1 PO
[2023-04-13 17:18] VITALS: BP 136/71
== END 2023-04-13 18:57 | disposition home or self-care (01) ==
LOC: ED 17:10
DX: L27.1 Localized skin eruption due to drugs and medicaments taken internally (principal); T36.4X5A Adverse effect of tetracyclines, initial encounter; I10 Essential (primary) hypertension; J44.9 Chronic obstructive pulmonary disease, unspecified; I25.2 Old myocardial infarction; Z88.0 Allergy status to penicillin; Z88.8 Allergy status to other drugs, medicaments and biological substances; Z79.899 Other long term (current) drug therapy; Z79.2 Long term (current) use of antibiotics; Z79.82 Long term (current) use of aspirin; Z95.0 Presence of cardiac pacemaker; Z98.51 Tubal ligation status; Z95.5 Presence of coronary angioplasty implant and graft; Y92.89 Other specified places as the place of occurrence of the external cause

== ENCOUNTER 2023-04-24 03:11 | Inpatient (IN) | payer OTHER ==
[2023-04-24] VITALS (9 sets, daily range): BP systolic 104–126; BP diastolic 71–84
[~2023-04-24] VITALS: Ht 162.5 cm; Wt 76.2 kg
[2023-04-24 03:34] LABS: BASO % 0.6 % (0.0-1.0); EOS # 0.1 10*3/uL (0.0-0.4); EOS % 0.8 % (1.0-4.0); HEMATOCRIT 39.3 % (37.0-47.0); LYMPH # 0.9 10*3/uL (1.3-4.4); LYMPH % 12.3 % (27.0-41.0); MEAN CELL VOLUME 88.5 fl (81.0-99.0); MEAN CORPUSCULAR HGB 28.6 pg (27.0-31.0); MEAN CORPUSCULAR HGB CONC 32.3 g/dl (33.0-37.0); MEAN PLATELET VOLUME 9.4 fl (9.6-12.3); MONO % 0.6 % (3.0-9.0); NEUT # 6.1 10*3/uL (2.3-7.9); NEUT % 85.6 % (47.0-73.0); PLATELET COUNT AUTOMATED 190 10*3/uL (130-400); RED BLOOD COUNT 4.44 10*6/uL (4.10-5.10); RED CELL DISTRI WIDTH 15.5 % (0-14.5); WHITE BLOOD COUNT 7.1 10*3/uL (4.8-10.8)
[2023-04-24 03:48] LABS: ACT PARTIAL THROMBO TIME 25.4 SECONDS (20.0-32.1); INTERNATIONAL NORM RATIO 1.1 (2.0-3.5)
[2023-04-24 03:58] LABS: POTASSIUM 3.8 mmol/L (3.4-5.1); TOTAL PROTEIN 6.5 gm/dL (6.0-8.0)
[2023-04-24 08:20] LABS: ABG BASE EXCESS -4.8 mmol/L (-2.0-2.0); ARTERIAL BLOOD GAS PH 7.409 (7.35-7.45); ARTERIAL BLOOD GAS PO2 101.1 (80-90)
[2023-04-24] MEDS ORDERED: ATORVASTATIN CA40 M1 PO (11:21)
[2023-04-24 15:40] LABS: BILIRUBIN Negative (Negative); BLOOD Trace-Lysed (Negative); CLARITY Cloudy (Clear); COLOR Yellow (Yellow); GLUCOSE 3+ (Negative); KETONE Trace (Negative); LEUKO ESTERASE 2+ (Negative); NITRITE Positive (Negative); PH 5.5 (4.5-8.0); SPECIFIC GRAVITY 1.025 (1.001-1.030)
[2023-04-24 15:47] LABS: BACTERIA 2+; EPITHELIAL CELLS 0-2; RBC 0-2 rbc/hpf (0-2); WBC TNTC wbc/hpf (0-5)
[2023-04-25] VITALS: BP 122/83
[2023-04-25 06:16] LABS: HEMATOCRIT 34.6 % (37.0-47.0); MANUAL DIFF REFLEX YES; MEAN CELL VOLUME 89.9 fl (81.0-99.0); MEAN CORPUSCULAR HGB 28.8 pg (27.0-31.0); MEAN CORPUSCULAR HGB CONC 32.1 g/dl (33.0-37.0); MEAN PLATELET VOLUME 10.5 fl (9.6-12.3); PLATELET COUNT AUTOMATED 182 10*3/uL (130-400); RED BLOOD COUNT 3.85 10*6/uL (4.10-5.10); RED CELL DISTRI WIDTH 15.6 % (0-14.5); WHITE BLOOD COUNT 22.3 10*3/uL (4.8-10.8)
[2023-04-25 06:23] LABS: ACT PARTIAL THROMBO TIME 25.6 SECONDS (20.0-32.1)
[2023-04-25 06:39] LABS: ALKALINE PHOSPHATASE 91 U/L (46-116); BUN 26 mg/dl (9-23); CHLORIDE 113 mmol/L (98-107); CHOLESTEROL 104 mg/dL (<200); FREE T4 0.93 ng/dl (0.89-1.76); LDL CHOLESTEROL 50 mg/dL (9-159); POTASSIUM 4.2 mmol/L (3.4-5.1); SGPT/ALT 16 U/L (10-49); TOTAL PROTEIN 5.3 gm/dL (6.0-8.0); TRIGLYCERIDES 117 mg/dl (<150)
[2023-04-25 07:07] LABS: BURR CELLS FEW; OVALOCYTES FEW; POLYCHROMASIA SLIGHT; ROULEAUX SLIGHT; TOTAL CELLS COUNTED 100 #CELLS; TOXIC GRANULATION SLIGHT
[2023-04-25 07:08] LABS: PLATELET SUFFICIENCY NORMAL (NORMAL)
[2023-04-25 07:19] LABS: VITAMIN D, 25-HYDROXY 22.4 ng/mL (30-100)
[2023-04-25 08:00] VITALS: BP 121/66
[2023-04-25 12:00] VITALS: BP 126/77
[2023-04-25 16:00] VITALS: BP 129/84
[2023-04-25 20:00] VITALS: BP 143/92
[2023-04-26] VITALS: BP 124/88
[2023-04-26 06:20] LABS: BASO % 0.1 % (0.0-1.0); HEMATOCRIT 32.8 % (37.0-47.0); LYMPH # 1.6 10*3/uL (1.3-4.4); LYMPH % 15.1 % (27.0-41.0); MEAN CELL VOLUME 89.1 fl (81.0-99.0); MEAN CORPUSCULAR HGB 28.8 pg (27.0-31.0); MEAN CORPUSCULAR HGB CONC 32.3 g/dl (33.0-37.0); MEAN PLATELET VOLUME 10.2 fl (9.6-12.3); MONO # 0.7 10*3/uL (0.1-1.0); MONO % 6.2 % (3.0-9.0); NEUT # 8.4 10*3/uL (2.3-7.9); NEUT % 77.9 % (47.0-73.0); PLATELET COUNT AUTOMATED 185 10*3/uL (130-400); RED BLOOD COUNT 3.68 10*6/uL (4.10-5.10); RED CELL DISTRI WIDTH 15.2 % (0-14.5); WHITE BLOOD COUNT 10.8 10*3/uL (4.8-10.8)
[2023-04-26 06:28] LABS: BUN 24 mg/dl (9-23); CHLORIDE 112 mmol/L (98-107); POTASSIUM 4.4 mmol/L (3.4-5.1)
[2023-04-26 08:00] VITALS: BP 138/83
[2023-04-26 12:00] VITALS: BP 142/96
[2023-04-26 15:34] VITALS: BP 147/98
[2023-04-26 20:00] VITALS: BP 140/92
[2023-04-27] VITALS: BP 137/84
[2023-04-27 08:00] VITALS: BP 154/97
[2023-04-27] MEDS ORDERED: LEVOFLOXACIN750 M2 PO (11:38)
[2023-04-27] MEDS ORDERED: PREDNISONE10 MG PO (11:38)
[2023-04-27 12:00] VITALS: BP 154/98
== END 2023-04-27 13:20 | disposition home or self-care (01) | DRG 871 ==
LOC: ED 03:11 → 4E 06:16 → EDHOLD 06:16 → 4E 20:03
PROVIDERS: Emergency Medicine; Registered Nurse; Student in an Organized Health Care Education/Training Program; ADMIT Internal Medicine; ATTEND Internal Medicine
DX: A41.51 Sepsis due to Escherichia coli [E. coli] (principal); J96.00 Acute respiratory failure, unspecified whether with hypoxia or hypercapnia; N17.0 Acute kidney failure with tubular necrosis; L03.116 Cellulitis of left lower limb; J45.901 Unspecified asthma with (acute) exacerbation; E44.0 Moderate protein-calorie malnutrition; J44.1 Chronic obstructive pulmonary disease with (acute) exacerbation; N39.0 Urinary tract infection, site not specified; S81.802A Unspecified open wound, left lower leg, initial encounter; X58.XXXA Exposure to other specified factors, initial encounter; R65.20 Severe sepsis without septic shock; F17.200 Nicotine dependence, unspecified, uncomplicated; Z20.822 Contact with and (suspected) exposure to COVID-19; I25.10 Atherosclerotic heart disease of native coronary artery without angina pectoris; E87.8 Other disorders of electrolyte and fluid balance, not elsewhere classified; R73.9 Hyperglycemia, unspecified; N18.32 Chronic kidney disease, stage 3b; Z98.51 Tubal ligation status; Z95.5 Presence of coronary angioplasty implant and graft; Z82.49 Family history of ischemic heart disease and other diseases of the circulatory system; Z88.0 Allergy status to penicillin; Z88.8 Allergy status to other drugs, medicaments and biological substances; Y93.89 Activity, other specified; Y92.89 Other specified places as the place of occurrence of the external cause; Y99.8 Other external cause status; Z79.82 Long term (current) use of aspirin; Z79.51 Long term (current) use of inhaled steroids; Z79.1 Long term (current) use of non-steroidal anti-inflammatories (NSAID); Z79.899 Other long term (current) drug therapy

== ENCOUNTER → 2023-05-07 | Outpatient (CLI) | payer OTHER ==
[~2023-05-07] MED LIST changes: +ATORVASTATIN CA40 M1 PO
== END | disposition home or self-care (01) ==
LOC: RESCLI 01:08
PROVIDERS: ATTEND Internal Medicine
DX: I12.9 Hypertensive chronic kidney disease with stage 1 through stage 4 chronic kidney disease, or unspecified chronic kidney disease (principal); N18.30 Chronic kidney disease, stage 3 unspecified; I25.10 Atherosclerotic heart disease of native coronary artery without angina pectoris; E78.2 Mixed hyperlipidemia; J45.50 Severe persistent asthma, uncomplicated; E83.51 Hypocalcemia; Z88.0 Allergy status to penicillin; Z88.8 Allergy status to other drugs, medicaments and biological substances; Z79.82 Long term (current) use of aspirin; Z79.899 Other long term (current) drug therapy

== ENCOUNTER 2023-05-31 06:49 | Emergency (ER) | payer OTHER ==
[~2023-05-31] VITALS: Ht 152.4 cm; Wt 76.2 kg
[2023-05-31 07:09] VITALS: BP 150/98
[2023-05-31] MEDS ORDERED: PREDNISONE50 MG PO ×2 (08:38)
[2023-06-06] MEDS ORDERED: OMNICEF300 MG PO (13:04)
[2023-06-06] MEDS ORDERED: Ipratropium Brom3 ML NEB (13:04)
[2023-06-06] MEDS ORDERED: PREDNISONE10 MG PO (13:04)
== END 2023-05-31 08:47 | disposition home or self-care (01) ==
LOC: ED 06:49
DX: J44.1 Chronic obstructive pulmonary disease with (acute) exacerbation (principal); I25.2 Old myocardial infarction; Z88.0 Allergy status to penicillin; Z88.8 Allergy status to other drugs, medicaments and biological substances; Z79.899 Other long term (current) drug therapy; Z79.2 Long term (current) use of antibiotics; Z79.82 Long term (current) use of aspirin; Z95.0 Presence of cardiac pacemaker; Z90.89 Acquired absence of other organs; Z98.51 Tubal ligation status; Z98.890 Other specified postprocedural states

== ENCOUNTER 2023-06-16 13:00 | Emergency (ER) | payer OTHER ==
[~2023-06-16 13:00] MED LIST changes: +Ipratropium Brom3 ML NEB; +OMNICEF300 MG PO
[2023-06-16 13:09] VITALS: BP 131/73
== END 2023-06-16 16:06 | disposition home or self-care (01) ==
LOC: ED 13:00
DX: S46.212A Strain of muscle, fascia and tendon of other parts of biceps, left arm, initial encounter (principal); I25.10 Atherosclerotic heart disease of native coronary artery without angina pectoris; I10 Essential (primary) hypertension; J44.9 Chronic obstructive pulmonary disease, unspecified; I25.2 Old myocardial infarction; E78.5 Hyperlipidemia, unspecified; Z88.0 Allergy status to penicillin; Z88.8 Allergy status to other drugs, medicaments and biological substances; Z90.89 Acquired absence of other organs; Z98.51 Tubal ligation status; Z98.890 Other specified postprocedural states; Z95.5 Presence of coronary angioplasty implant and graft; X58.XXXA Exposure to other specified factors, initial encounter; Y93.89 Activity, other specified; Y92.89 Other specified places as the place of occurrence of the external cause; Y99.8 Other external cause status

== ENCOUNTER → 2023-06-19 | Outpatient (CLI) | payer OTHER | END | disposition home or self-care (01) | LOC: RESCLI 09:45 | PROVIDERS: ATTEND Internal Medicine | DX: I12.9 Hypertensive chronic kidney disease with stage 1 through stage 4 chronic kidney disease, or unspecified chronic kidney disease (principal); E11.22 Type 2 diabetes mellitus with diabetic chronic kidney disease; N18.30 Chronic kidney disease, stage 3 unspecified; I25.10 Atherosclerotic heart disease of native coronary artery without angina pectoris; J45.50 Severe persistent asthma, uncomplicated; E83.51 Hypocalcemia; E78.2 Mixed hyperlipidemia; Z88.0 Allergy status to penicillin; Z88.8 Allergy status to other drugs, medicaments and biological substances; Z79.899 Other long term (current) drug therapy; Z98.890 Other specified postprocedural states ==

== ENCOUNTER → 2023-07-24 | Outpatient (CLI) | payer OTHER | END | disposition home or self-care (01) | LOC: RESCLI 00:36 | PROVIDERS: ATTEND Internal Medicine | DX: I12.9 Hypertensive chronic kidney disease with stage 1 through stage 4 chronic kidney disease, or unspecified chronic kidney disease (principal); N18.30 Chronic kidney disease, stage 3 unspecified; I25.10 Atherosclerotic heart disease of native coronary artery without angina pectoris; E78.2 Mixed hyperlipidemia; J45.50 Severe persistent asthma, uncomplicated; E83.51 Hypocalcemia; Z12.31 Encounter for screening mammogram for malignant neoplasm of breast; Z98.890 Other specified postprocedural states; Z82.49 Family history of ischemic heart disease and other diseases of the circulatory system; Z88.0 Allergy status to penicillin; Z88.8 Allergy status to other drugs, medicaments and biological substances; Z79.02 Long term (current) use of antithrombotics/antiplatelets; Z79.899 Other long term (current) drug therapy ==

== ENCOUNTER → 2023-09-21 | Outpatient (CLI) | payer OTHER ==
[2023-09-21 14:26] LABS: CHOLESTEROL 118 mg/dL (<200); LDL CHOLESTEROL 46 mg/dL (9-159); TRIGLYCERIDES 121 mg/dl (<150)
== END | disposition home or self-care (01) ==
LOC: RESCLI 00:18
PROVIDERS: Internal Medicine; ATTEND Internal Medicine
DX: I12.9 Hypertensive chronic kidney disease with stage 1 through stage 4 chronic kidney disease, or unspecified chronic kidney disease (principal); N18.30 Chronic kidney disease, stage 3 unspecified; I25.10 Atherosclerotic heart disease of native coronary artery without angina pectoris; E78.2 Mixed hyperlipidemia; J45.50 Severe persistent asthma, uncomplicated; E83.51 Hypocalcemia; R73.9 Hyperglycemia, unspecified; J06.9 Acute upper respiratory infection, unspecified; Z79.02 Long term (current) use of antithrombotics/antiplatelets; Z79.82 Long term (current) use of aspirin; Z98.890 Other specified postprocedural states; Z88.0 Allergy status to penicillin; Z88.8 Allergy status to other drugs, medicaments and biological substances; Z82.49 Family history of ischemic heart disease and other diseases of the circulatory system; Z79.899 Other long term (current) drug therapy

== ENCOUNTER 2023-11-13 20:19 | Emergency (ER) | payer OTHER ==
[~2023-11-13] VITALS: Ht 154.9 cm; Wt 77.1 kg
[2023-11-13 20:27] VITALS: BP 118/67
[2023-11-13 21:04] LABS: HEMATOCRIT 36.1 % (37.0-47.0); LYMPH # 1.6 10*3/uL (1.3-4.4); LYMPH % 29.6 % (27.0-41.0); MEAN CELL VOLUME 75.1 fl (81.0-99.0); MEAN PLATELET VOLUME 9.1 fl (9.6-12.3); MONO # 0.3 10*3/uL (0.1-1.0); MONO % 6.2 % (3.0-9.0); NEUT # 3.5 10*3/uL (2.3-7.9); NEUT % 63.8 % (47.0-73.0); PLATELET COUNT AUTOMATED 286 10*3/uL (130-400); RED BLOOD COUNT 4.81 10*6/uL (4.10-5.10); RED CELL DISTRI WIDTH 17.6 % (0-14.5); WHITE BLOOD COUNT 5.5 10*3/uL (4.8-10.8)
[2023-11-13 21:28] LABS: ALKALINE PHOSPHATASE 714 U/L (46-116); BUN 15 mg/dl (9-23); CHLORIDE 110 mmol/L (98-107); POTASSIUM 3.4 mmol/L (3.4-5.1); SGPT/ALT 398 U/L (5-49); TOTAL PROTEIN 6.7 gm/dL (6.0-8.0)
[2023-11-13] MEDS ORDERED: PREDNISONE10 MG PO (22:00)
[2023-11-13] MEDS ORDERED: AVPAK AZITHROM250 M1 PO (22:00)
== END 2023-11-13 22:27 | disposition home or self-care (01) ==
LOC: ED 20:19
PROVIDERS: Physician Assistant Medical
DX: J44.1 Chronic obstructive pulmonary disease with (acute) exacerbation (principal); Z20.822 Contact with and (suspected) exposure to COVID-19; R74.01 Elevation of levels of liver transaminase levels; I10 Essential (primary) hypertension; I25.10 Atherosclerotic heart disease of native coronary artery without angina pectoris; I25.2 Old myocardial infarction; E78.5 Hyperlipidemia, unspecified; Z88.0 Allergy status to penicillin; Z88.8 Allergy status to other drugs, medicaments and biological substances; Z98.890 Other specified postprocedural states; Z90.89 Acquired absence of other organs; Z98.51 Tubal ligation status; Z95.5 Presence of coronary angioplasty implant and graft

== ENCOUNTER 2024-06-01 08:53 | Emergency (ER) | payer OTHER ==
[~2024-06-01] VITALS: Ht 154.9 cm; Wt 74.8 kg
[2024-06-01 09:16] VITALS: BP 150/98
[2024-06-01] MEDS ORDERED: MORPHINE Sulfate 2 MG/ML SYR IV ONE (09:35)
[2024-06-01] MEDS ORDERED: methylPREDNISolone sod succ 125 MG VIAL IV ONE (09:35)
[2024-06-01] MEDS ORDERED: Albuterol Sulfate 2.5 MG/3 ML VIAL NEB ONE (09:35)
[2024-06-01] MEDS ORDERED: SODIUM CHLORIDE 0.9% 1,000 ML IV ONE (09:35)
[2024-06-01] MEDS ORDERED: Ondansetron Hydrochloride 4 MG/2 ML VIAL IV ONE (09:35)
[2024-06-01 09:47] LABS: BASO % 0.1 % (0.0-1.0); HEMATOCRIT 33.6 % (37.0-47.0); LYMPH # 1.9 10*3/uL (1.3-4.4); LYMPH % 18.8 % (27.0-41.0); MEAN CORPUSCULAR HGB 20.7 pg (27.0-31.0); MEAN CORPUSCULAR HGB CONC 28.3 g/dl (33.0-37.0); MEAN PLATELET VOLUME 8.5 fl (9.6-12.3); MONO # 0.8 10*3/uL (0.1-1.0); MONO % 8.5 % (3.0-9.0); NEUT # 7.1 10*3/uL (2.3-7.9); NEUT % 72.1 % (47.0-73.0); PLATELET COUNT AUTOMATED 399 10*3/uL (130-400); RED CELL DISTRI WIDTH 18.6 % (0-14.5); WHITE BLOOD COUNT 9.8 10*3/uL (4.8-10.8)
[2024-06-01 10:15] LABS: BUN 19 mg/dl (9-23); CHLORIDE 110 mmol/L (98-107)
[2024-06-01] MEDS ORDERED: CYCLOBENZAPRINE10 MG PO (10:27)
[2024-06-01] MEDS ORDERED: MELOXICAM15 MG PO (10:27)
== END 2024-06-01 10:49 | disposition home or self-care (01) ==
LOC: ED 08:53
PROVIDERS: Emergency Medicine
DX: R07.89 Other chest pain (principal); J44.1 Chronic obstructive pulmonary disease with (acute) exacerbation; I25.10 Atherosclerotic heart disease of native coronary artery without angina pectoris; I10 Essential (primary) hypertension; E78.5 Hyperlipidemia, unspecified; Z88.0 Allergy status to penicillin; Z88.8 Allergy status to other drugs, medicaments and biological substances; Z90.89 Acquired absence of other organs; Z98.51 Tubal ligation status; Z98.890 Other specified postprocedural states; Z95.5 Presence of coronary angioplasty implant and graft; I25.2 Old myocardial infarction

== ENCOUNTER → 2024-07-28 | Outpatient (CLI) | payer OTHER ==
[~2024-07-28] MED LIST changes: +MELOXICAM15 MG PO
[2024-07-28 11:02] LABS: BASO # 0.1 10*3/uL (0.0-0.1); BASO % 1.2 % (0.0-1.0); EOS # 0.6 10*3/uL (0.0-0.4); EOS % 6.4 % (1.0-4.0); HEMATOCRIT 33.7 % (37.0-47.0); LYMPH % 33.6 % (27.0-41.0); MEAN CELL VOLUME 73.9 fl (81.0-99.0); MEAN CORPUSCULAR HGB 20.8 pg (27.0-31.0); MEAN CORPUSCULAR HGB CONC 28.2 g/dl (33.0-37.0); MEAN PLATELET VOLUME 8.7 fl (9.6-12.3); MONO # 0.7 10*3/uL (0.1-1.0); MONO % 7.7 % (3.0-9.0); NEUT # 4.5 10*3/uL (2.3-7.9); NEUT % 50.9 % (47.0-73.0); PLATELET COUNT AUTOMATED 361 10*3/uL (130-400); RED BLOOD COUNT 4.56 10*6/uL (4.10-5.10); RED CELL DISTRI WIDTH 18.3 % (0-14.5); WHITE BLOOD COUNT 8.9 10*3/uL (4.8-10.8)
[2024-07-28 11:45] LABS: ALKALINE PHOSPHATASE 187 U/L (46-116); BUN 20 mg/dl (9-23); CHLORIDE 110 mmol/L (98-107); CHOLESTEROL 152 mg/dL (<200); LDL CHOLESTEROL 88 mg/dL (9-159); POTASSIUM 3.8 mmol/L (3.4-5.1); SGPT/ALT 12 U/L (5-49); TOTAL PROTEIN 6.5 gm/dL (6.0-8.0); TRIGLYCERIDES 70 mg/dl (<150)
[2024-07-28 11:47] LABS: VITAMIN D, 25-HYDROXY 43.2 ng/mL (30-100)
[2024-07-28 12:44] LABS: FREE T4 1.11 ng/dl (0.89-1.76)
== END | disposition home or self-care (01) ==
LOC: RESCLI 01:24
PROVIDERS: ATTEND Internal Medicine
DX: I10 Essential (primary) hypertension (principal); I25.10 Atherosclerotic heart disease of native coronary artery without angina pectoris; K57.30 Diverticulosis of large intestine without perforation or abscess without bleeding; D50.9 Iron deficiency anemia, unspecified; R63.4 Abnormal weight loss; E56.9 Vitamin deficiency, unspecified; E78.2 Mixed hyperlipidemia; J44.89 Other specified chronic obstructive pulmonary disease; E83.51 Hypocalcemia; J45.50 Severe persistent asthma, uncomplicated; Z13.820 Encounter for screening for osteoporosis; Z12.39 Encounter for other screening for malignant neoplasm of breast; Z12.11 Encounter for screening for malignant neoplasm of colon; Z79.82 Long term (current) use of aspirin; Z82.49 Family history of ischemic heart disease and other diseases of the circulatory system; Z88.0 Allergy status to penicillin; Z98.890 Other specified postprocedural states; Z79.899 Other long term (current) drug therapy

== ENCOUNTER → 2024-08-25 | Outpatient (CLI) | payer OTHER ==
[2024-08-25 11:04] LABS: BASO # 0.1 10*3/uL (0.0-0.1); EOS # 0.4 10*3/uL (0.0-0.4); EOS % 4.4 % (1.0-4.0); HEMATOCRIT 33.2 % (37.0-47.0); MEAN CELL VOLUME 73.8 fl (81.0-99.0); MEAN CORPUSCULAR HGB 21.3 pg (27.0-31.0); MEAN CORPUSCULAR HGB CONC 28.9 g/dl (33.0-37.0); MEAN PLATELET VOLUME 8.4 fl (9.6-12.3); MONO # 0.6 10*3/uL (0.1-1.0); MONO % 6.8 % (3.0-9.0); NEUT # 5.2 10*3/uL (2.3-7.9); NEUT % 55.4 % (47.0-73.0); PLATELET COUNT AUTOMATED 408 10*3/uL (130-400); RED CELL DISTRI WIDTH 18.6 % (0-14.5); WHITE BLOOD COUNT 9.3 10*3/uL (4.8-10.8)
== END | disposition home or self-care (01) ==
LOC: RESCLI 01:00
PROVIDERS: ATTEND Internal Medicine
DX: D50.9 Iron deficiency anemia, unspecified (principal); J44.1 Chronic obstructive pulmonary disease with (acute) exacerbation; E83.51 Hypocalcemia; I25.10 Atherosclerotic heart disease of native coronary artery without angina pectoris; I12.9 Hypertensive chronic kidney disease with stage 1 through stage 4 chronic kidney disease, or unspecified chronic kidney disease; N18.30 Chronic kidney disease, stage 3 unspecified; J45.50 Severe persistent asthma, uncomplicated; Z79.899 Other long term (current) drug therapy; Z79.82 Long term (current) use of aspirin; Z98.890 Other specified postprocedural states

== ENCOUNTER 2024-10-17 09:40 | Inpatient (IN) | payer OTHER ==
[~2024-10-17] VITALS: Ht 156.2 cm; Wt 59.4 kg
[2024-10-17 09:51] VITALS: BP 158/114
[2024-10-17] MEDS ORDERED: methylPREDNISolone sod succ 125 MG VIAL IV ONE (09:55)
[2024-10-17] MEDS ORDERED: AZITHROMYCIN 250 MG TAB PO ONE (09:55)
[2024-10-17] MEDS ORDERED: MAGNESIUM SULFATE 50 ML IV ONE (09:55)
[2024-10-17] MEDS ORDERED: Albuterol Sulfate 2.5 MG/3 ML VIAL NEB ONE (09:55)
[2024-10-17 10:06] LABS: HEMATOCRIT 39.9 % (37.0-47.0); MEAN CELL VOLUME 78.7 fl (81.0-99.0); MEAN CORPUSCULAR HGB 21.7 pg (27.0-31.0); MEAN CORPUSCULAR HGB CONC 27.6 g/dl (33.0-37.0); MEAN PLATELET VOLUME 8.7 fl (9.6-12.3); PLATELET COUNT AUTOMATED 466 10*3/uL (130-400); RED BLOOD COUNT 5.07 10*6/uL (4.10-5.10); RED CELL DISTRI WIDTH 18.4 % (0-14.5); WHITE BLOOD COUNT 17.4 10*3/uL (4.8-10.8)
[2024-10-17 10:19] LABS: MANUAL DIFF REFLEX YES
[2024-10-17 10:30] LABS: BUN 16 mg/dl (9-23); CHLORIDE 107 mmol/L (98-107); POTASSIUM 4.3 mmol/L (3.4-5.1)
[2024-10-17] MEDS ORDERED: SODIUM CHLORIDE 0.9% 1,000 ML IV ONE ×2 (11:20)
[2024-10-17 11:35] LABS: ATYPICAL LYMPHS 1 % (0-0); BASOPHILS 3 % (0-1); TOTAL CELLS COUNTED 100 #CELLS
[2024-10-17 11:38] LABS: MICROCYTOSIS SLIGHT; PLATELET SUFFICIENCY HIGH (NORMAL)
[2024-10-17] MEDS ORDERED: Ceftriaxone Sodium 1 GM/10 ML SYR IV ONE (11:45)
[2024-10-17 11:55] VITALS: BP 134/86
[2024-10-17] MEDS ORDERED: FEROSUL325 M1 PO (12:43)
[2024-10-17] MEDS ORDERED: PAIN RELIEF EX500 MG PO (12:45)
[2024-10-17] MEDS ORDERED: FLUVOXAMINE50 MG PO (12:46)
[2024-10-17] MEDS ORDERED: CYPROHEPTADINE H4 M1 PO (12:46)
[2024-10-17] MEDS ORDERED: FUROSEMIDE20 M1 PO (12:47)
[2024-10-17] MEDS ORDERED: LEVSIN-SL0.125 MG SL (12:48)
[2024-10-17] MEDS ORDERED: COZAAR25 M1 PO (12:49)
[2024-10-17] MEDS ORDERED: METOPROLOL SUCC25 M2 PO (12:50)
[2024-10-17] MEDS ORDERED: BREYNA 160-4.10.3 GM IH (13:05)
[2024-10-17] MEDS ORDERED: ASPIRIN ADULT L81 M1 PO (13:05)
[2024-10-17] MEDS ORDERED: Albuterol 108mcg/A (13:05)
[2024-10-17] MEDS ORDERED: ACETAMINOPHEN 325 MG TAB PO PRN (13:25)
[2024-10-17] MEDS ORDERED: Ondansetron Hydrochloride 4 MG/2 ML VIAL IV PRN (13:25)
[2024-10-17] MEDS ORDERED: BISACODYL 5 MG TAB PO PRN (13:25)
[2024-10-17] MEDS ORDERED: CLOPIDOGREL75 MG PO (13:39)
[2024-10-17 13:44] VITALS: BP 139/94
[2024-10-17 14:00] LABS: ABG O2 SATURATION 97.4 % (94.0-98.0); ARTERIAL BLOOD GAS PH 7.404 (7.350-7.450); ARTERIAL BLOOD GAS PO2 99.9 mmHg (83.0-108.0)
[2024-10-17 14:02] LABS: ABG BASE EXCESS -3.9 mmol/L (-2.0-3.0)
[2024-10-17 17:09] VITALS: BP 114/73
[2024-10-17 21:32] VITALS: BP 130/87
[2024-10-17] MEDS ORDERED: Metoprolol Tartrate 50 MG TAB PO SCH (22:00)
[2024-10-17] MEDS ORDERED: methylPREDNISolone sod succ 125 MG VIAL IV SCH (22:00)
[2024-10-17] MEDS ORDERED: HEPARIN SODIUM 5,000 UNIT/ML VIAL SC SCH (22:00)
[2024-10-17 22:36] VITALS: BP 126/83
[2024-10-18 01:40] VITALS: BP 109/84
[2024-10-18 03:40] VITALS: BP 119/74
[2024-10-18 06:05] LABS: BASO % 0.1 % (0.0-1.0); HEMATOCRIT 35.6 % (37.0-47.0); MEAN CELL VOLUME 77.7 fl (81.0-99.0); MEAN CORPUSCULAR HGB 21.8 pg (27.0-31.0); MEAN CORPUSCULAR HGB CONC 28.1 g/dl (33.0-37.0); MONO # 0.5 10*3/uL (0.1-1.0); MONO % 3.1 % (3.0-9.0); NEUT # 12.3 10*3/uL (2.3-7.9); NEUT % 84.2 % (47.0-73.0); PLATELET COUNT AUTOMATED 384 10*3/uL (130-400); RED BLOOD COUNT 4.58 10*6/uL (4.10-5.10); RED CELL DISTRI WIDTH 18.1 % (0-14.5); WHITE BLOOD COUNT 14.7 10*3/uL (4.8-10.8)
[2024-10-18 06:53] LABS: ALKALINE PHOSPHATASE 177 U/L (46-116); BUN 21 mg/dl (9-23); CHLORIDE 109 mmol/L (98-107); SGPT/ALT 17 U/L (5-49); TOTAL PROTEIN 6.4 gm/dL (6.0-8.0)
[2024-10-18 07:13] LABS: POTASSIUM 5.3 mmol/L (3.4-5.1)
[2024-10-18 07:53] VITALS: BP 101/67
[2024-10-18] MEDS ORDERED: Albuterol Sulf/Ipratropium 3 ML VIAL NEB SCH (09:40)
[2024-10-18] MEDS ORDERED: LISINOPRIL 20 MG TAB ONE (09:43)
[2024-10-18] MEDS ORDERED: ASPIRIN, CHEWABLE 81 MG TAB PO SCH (10:00)
[2024-10-18] MEDS ORDERED: LISINOPRIL 40 MG TAB PO SCH (10:00)
[2024-10-18] MEDS ORDERED: ATORVASTATIN CALCIUM 40 MG TABLET PO SCH (10:00)
[2024-10-18] MEDS ORDERED: Clopidogrel Hydrogen Sulfate 75 MG TAB PO SCH (10:00)
[2024-10-18 11:40] VITALS: BP 107/76
[2024-10-18] MEDS ORDERED: AZITHROMYCIN 250 MG TAB PO SCH (13:02)
[2024-10-18 14:05] VITALS: BP 101/64
[2024-10-18 20:00] VITALS: BP 101/65
[2024-10-18] MEDS ORDERED: GUAIFENESIN 600 MG TAB ER PO SCH (22:00)
[2024-10-19] VITALS: BP 108/64
[2024-10-19 06:11] LABS: BUN 29 mg/dl (9-23); CHLORIDE 108 mmol/L (98-107)
[2024-10-19 08:00] VITALS: BP 130/75
[2024-10-19] MEDS ORDERED: methylPREDNISolone sod succ 40 MG VIAL IV SCH (10:00)
[2024-10-19 12:00] VITALS: BP 124/75
[2024-10-19] MEDS ORDERED: OMNICEF300 MG PO (15:01)
[2024-10-19] MEDS ORDERED: AVPAK AZITHROM250 M1 PO (15:01)
== END 2024-10-19 16:05 | disposition home or self-care (01) | DRG 871 ==
LOC: ED 09:40 → EDHOLD 12:27 → ICCU 10-18 13:21
PROVIDERS: Emergency Medicine; Registered Nurse; ADMIT Internal Medicine; ATTEND Internal Medicine
PROC: 5A09357 Assistance with Respiratory Ventilation, Less than 24 Consecutive Hours, Continuous Positive Airway Pressure (ICD-10-PCS; principal; 2024-10-17)
PROC: 5A09357 Assistance with Respiratory Ventilation, Less than 24 Consecutive Hours, Continuous Positive Airway Pressure (ICD-10-PCS; 2024-10-18)
DX: A41.9 Sepsis, unspecified organism (principal); J15.69 Pneumonia due to other Gram-negative bacteria; J96.01 Acute respiratory failure with hypoxia; J44.0 Chronic obstructive pulmonary disease with (acute) lower respiratory infection; J44.1 Chronic obstructive pulmonary disease with (acute) exacerbation; E44.0 Moderate protein-calorie malnutrition; J45.901 Unspecified asthma with (acute) exacerbation; Z77.22 Contact with and (suspected) exposure to environmental tobacco smoke (acute) (chronic); I25.10 Atherosclerotic heart disease of native coronary artery without angina pectoris; E66.9 Obesity, unspecified; R65.20 Severe sepsis without septic shock; E78.2 Mixed hyperlipidemia; Z66 Do not resuscitate; Z20.822 Contact with and (suspected) exposure to COVID-19; N18.30 Chronic kidney disease, stage 3 unspecified; I12.9 Hypertensive chronic kidney disease with stage 1 through stage 4 chronic kidney disease, or unspecified chronic kidney disease; Z88.0 Allergy status to penicillin; Z88.8 Allergy status to other drugs, medicaments and biological substances; Z91.09 Other allergy status, other than to drugs and biological substances; Z79.899 Other long term (current) drug therapy; Z79.01 Long term (current) use of anticoagulants; Z79.2 Long term (current) use of antibiotics; Z95.0 Presence of cardiac pacemaker; Z98.42 Cataract extraction status, left eye; I25.2 Old myocardial infarction; Z98.41 Cataract extraction status, right eye; Z82.49 Family history of ischemic heart disease and other diseases of the circulatory system; Z83.3 Family history of diabetes mellitus; Z68.24 Body mass index [BMI] 24.0-24.9, adult

== ENCOUNTER → 2024-10-27 | Outpatient (CLI) | payer OTHER ==
[~2024-10-27] MED LIST changes: +ASPIRIN ADULT L81 M1 PO; +Albuterol 108mcg/A; +BREYNA 160-4.10.3 GM IH; +CLOPIDOGREL75 MG PO; +COZAAR25 M1 PO; +CYPROHEPTADINE H4 M1 PO; +FEROSUL325 M1 PO; +FLUVOXAMINE50 MG PO; +FUROSEMIDE20 M1 PO; +LEVSIN-SL0.125 MG SL; +METOPROLOL SUCC25 M2 PO; +PAIN RELIEF EX500 MG PO
== END | disposition home or self-care (01) ==
LOC: LAB 10:24 → RESCLI 10:24
PROVIDERS: ATTEND Family Medicine
DX: U07.1 COVID-19 (principal); J06.9 Acute upper respiratory infection, unspecified

== ENCOUNTER → 2024-11-25 | Outpatient (CLI) | payer OTHER ==
[2024-11-25 14:47] LABS: BASO # 0.1 10*3/uL (0.0-0.1); BASO % 1.1 % (0.0-1.0); EOS # 0.6 10*3/uL (0.0-0.4); EOS % 5.2 % (1.0-4.0); HEMATOCRIT 38.9 % (37.0-47.0); MEAN CELL VOLUME 78.9 fl (81.0-99.0); MEAN CORPUSCULAR HGB 22.5 pg (27.0-31.0); MEAN CORPUSCULAR HGB CONC 28.5 g/dl (33.0-37.0); MEAN PLATELET VOLUME 9.1 fl (9.6-12.3); MONO # 0.9 10*3/uL (0.1-1.0); MONO % 8.4 % (3.0-9.0); NEUT # 6.3 10*3/uL (2.3-7.9); NEUT % 56.5 % (47.0-73.0); PLATELET COUNT AUTOMATED 442 10*3/uL (130-400); RED BLOOD COUNT 4.93 10*6/uL (4.10-5.10); RED CELL DISTRI WIDTH 19.1 % (0-14.5); WHITE BLOOD COUNT 11.1 10*3/uL (4.8-10.8)
== END | disposition home or self-care (01) ==
LOC: LAB 13:26
PROVIDERS: ATTEND Internal Medicine Critical Care Medicine
DX: Z79.899 Other long term (current) drug therapy (principal)

== ENCOUNTER → 2025-02-16 | Outpatient (CLI) | payer OTHER ==
[2025-02-16 11:32] LABS: BASO % 0.1 % (0.0-1.0); HEMATOCRIT 42.3 % (37.0-47.0); MEAN CORPUSCULAR HGB 22.2 pg (27.0-31.0); MEAN CORPUSCULAR HGB CONC 28.8 g/dl (33.0-37.0); MEAN PLATELET VOLUME 9.2 fl (9.6-12.3); MONO # 0.9 10*3/uL (0.1-1.0); MONO % 5.9 % (3.0-9.0); NEUT # 10.9 10*3/uL (2.3-7.9); NEUT % 73.6 % (47.0-73.0); PLATELET COUNT AUTOMATED 478 10*3/uL (130-400); RED BLOOD COUNT 5.49 10*6/uL (4.10-5.10); RED CELL DISTRI WIDTH 16.8 % (0-14.5); WHITE BLOOD COUNT 14.8 10*3/uL (4.8-10.8)
[2025-02-16 12:13] LABS: POTASSIUM 4.3 mmol/L (3.4-5.1)
== END | disposition home or self-care (01) ==
LOC: LAB 03:15 → RESCLI 03:15
PROVIDERS: ATTEND Internal Medicine
DX: J44.89 Other specified chronic obstructive pulmonary disease (principal); I10 Essential (primary) hypertension; I25.10 Atherosclerotic heart disease of native coronary artery without angina pectoris; Z12.11 Encounter for screening for malignant neoplasm of colon; Z12.39 Encounter for other screening for malignant neoplasm of breast; J45.50 Severe persistent asthma, uncomplicated; M85.80 Other specified disorders of bone density and structure, unspecified site; D50.9 Iron deficiency anemia, unspecified; Z79.899 Other long term (current) drug therapy; Z98.890 Other specified postprocedural states; Z88.0 Allergy status to penicillin; Z88.8 Allergy status to other drugs, medicaments and biological substances

== ENCOUNTER → 2025-04-06 | Emergency (ER) | payer OTHER ==
[~2025-04-06] VITALS: Ht 152.4 cm; Wt 68.5 kg
[~2025-04-06] MED LIST changes: +EPINEPHrine Hydrochloride 1 MG/10 ML SYR IV ONE
[2025-04-06 23:42] VITALS: BP 00/00
== END ==
LOC: ED 23:42
DX: I46.9 Cardiac arrest, cause unspecified (principal); I25.2 Old myocardial infarction; J44.9 Chronic obstructive pulmonary disease, unspecified; Z88.0 Allergy status to penicillin; Z88.8 Allergy status to other drugs, medicaments and biological substances; Z79.899 Other long term (current) drug therapy; Z79.82 Long term (current) use of aspirin; Z95.0 Presence of cardiac pacemaker; Z95.5 Presence of coronary angioplasty implant and graft; Z90.89 Acquired absence of other organs; Z87.891 Personal history of nicotine dependence